=== PATIENT | female | born 1940 | race Caucasian/White ===

== ENCOUNTER 2018-02-08 02:04 | Inpatient (IN) | payer OTHER ==
[~2018-02-08] VITALS: Ht 149.9 cm; Wt 88.5 kg
[~2018-02-08 02:04] MED LIST: ADVAIR 100-501 EACH INH; ATORVASTATIN CA10 M1 PO; COZAAR100 M1 PO; GLIPIZIDE5 M2 PO; METFORMIN HCL500 M3 PO; PRESERVISION L1 EACH; VITAMIN B-121000 MC3 PO
--- NOTE | 2018-02-08 19:42 | Operative Report ---
Operative/Inv Procedure Report Surgery Date: 02/08/18 Name of Procedure: 1. Robotic low anterior resection with low colorectal anastomosis 2. Laparoscopic mobilization of splenic flexure 3. Diverting loop ileostomy 4. Rigid sigmoidoscopy for evaluation of anastomotic integrity Pre-Operative Diagnosis: Sigmoid polyp at 20 cm Post-Operative Diagnosis: 1. Rectal polyp mid rectum 2. Severe diverticular disease Estimated Blood Loss: 300 mL Surgeon/Quiller Operator: Christopher Moser Jr., DO Anesthesia: general endotracheal tube Monitors: Per routine Implants: None Urine Output: Adequate Drains: REINA in pelvis Specimens: #1 rectosigmoid #2 reresection rectum with lesion present stitch caballero distal margin Complications: None Condition: Good Operative Indication: This 77-year-old female who was found to have a polyp on colonoscopy not amenable to endoscopic removal. The lesion was biopsied and tattooed and the patient was referred for surgical resection Operative/Procedure Note Note: On the day before procedure the patient is a bowel prep at home, which included oral laxatives and oral antibiotics. In the morning prior to coming to the hospital she drank 12 ounces of apple juice per the ERAS protocol. In the holding area she received premedications including: Oral Tylenol, oral Neurontin , oral Entereg. She received subcutaneous heparin in the holding area. He was taken into the operating room she received IV antibiotics. She is placed in the supine position on the operating room table. She underwent induction of general anesthesia placement endotracheal tube and Hamilton catheter. She underwent her bilateral tap blocks. She was then converted to lithotomy position in [facility]. The abdomen was prepped and draped in usual fashion. We entered the abdominal cavity using a Veress needle technique. Veress needle was inserted in the midclavicular line subcostally on the left. The abdomen was insufflated to 15 mmHg. Next the robotic ports were placed. They were placed on a line drawn between the xiphoid process in the right lower quadrant. The # 12 and 3 ports were a millimeter ports. The #4 port was a 12 mm port. A new additional 12 mm right lower quadrant aerocele port was placed for the patient observation assistant. The first port was placed. #3 which was blindly placed and then the additional ports were all placed under direct visualization of the lap scope. Next laparoscopic exploration was performed. Patient had abundant adhesions of the omentum to the pelvis. I mobilized some of these adhesions upper scopic labor decided we would complete the lysis robotically. The patient was placed in steep Trendelenburg right side down and the robot was docked. Over the next hour lysis of adhesion was performed and the omentum was freed from the pelvis. The cause of the patient's obesity and body habitus was very difficult to get exposure in the pelvis. Even with maximum Trendelenburg the small bowel Back into the Pelvis. Because of this I decided to do a lateral to medial mobilization. The rectosigmoid colon was grasped and pulled medially and then I divided the white line of Toldt with electrocautery. I carefully entered the retroperitoneal avascular space. And continued to dissect till I found the ureter and can then continue to dissect medially until was in the posterior avascular space of the rectum I took this down posteriorly and laterally on the left. Next the colon was pulled anteriorly and he was able to mobilize I was able to incise perineum and an entered the posterior avascular space from the right side and then mobilize part of the lateral stalks. No tattoo was visible. Patient had a long segment of severe diverticular disease which appeared to have its of recurrent diverticulitis. I mobilized the entire left colon taking down the white line of Toldt all the way to the level of the splenic flexure. I repeatedly ran the left colon and sigmoid colon but could not find a tattoo. Intraoperatively the last report was reviewed and stated that the polyp was at 20 cm. Decided to hedge my bet and mobilize more of the rectum making sure to make my distal staple line comfortably on the rectum at about 12 cm from the anal verge. At this point the vascular pedicle was identified and then skeletonized. I did get some bleeding from sidebranches was mobilizing the pedicle which were ultimately controlled with the robotic vessel sealer. The vessels were then divided with the vessel sealer. I inspected the vascular pedicle which appeared hemostatic. Next I cleared the mesial rectum with the vessel sealer. The bowel was divided with a blue NEELAM stapler. The transected portion of bowel was grasped. The robot was undocked. A midline incision was made just below the umbilicus. This was a 5 cm incision. Wound protector was placed through this. In the transected end of the bowel easily was pulled through this wound protector. The bowel was very firm and palpated the entire length of the rectosigmoid but because of the diverticular disease could not be sure whether or not there was a lesion within the lumen. I chose my proximal site of transection which was at the junction of the sigmoid colon and descending colon. The mesentery was cleared here with electrocautery and larger bundles of mesentery were ligated with Vicryl suture. The bowel was sharply divided. And the specimen was removed from the field. A handsewn pursestring was performed with a 2-0 Prolene suture. A anvil from a 28 m EEA stapler was placed into the lumen of the bowel. The Turner was tied snugly around the PEG of the anvil. The bowel was reduced back into the abdominal cavity. At this point specimen was opened on the back table. The bowel had severe narrowing from diverticular disease but there was no polyp no mass and no tattoo present. Rigid sigmoidoscopy was performed at this point and a large polypoid lesion was still visible within the rectum. At this point the robot was re-docked. And I continued to mobilize more rectum. I never saw tattoo. Therefore I decided to take my mobilization as low as possible in order to not leave any residual polyp. The rectum was mobilized at the level of the levators using a combination of electrocautery and vessel sealer. Once I reached the levators I prepared to divide the specimen. The specimen was pulled in a cephalad direction. Then divided the bowel in an anterior posterior fashion with robotic green loaded NEELAM staplers. Multiple firings were required to get across. The specimen was then removed through the wound protector which had been converted to a gel port hand port. . The specimen was opened on the back table this time the polyp was clearly present there was tattoo ink at the base of the polyp but it did not anal the outer wall of the rectum . A stitch was used to nila the distal margin . At this point the colon would not reach to the bottom of the pelvis. The GelPort was extended slightly to come in and my hand to 8 cm. And a laparoscopic hand-assisted mobilization of the splenic flexure was carried out. Once the splenic flexure was completely mobilized the colon would reach the bottom of the pelvis. EEA sizers were passed transanally. In the EEA stapler was placed. Her was only about 4 cm of residual rectum. The spike was advanced through the rectal wall. 2 ends of the stapler overlapping scopic mated. The stapler was completely closed and allowed to settle for 30 seconds. The stapler was then fired, opened, and completely retrieved. 2 complete donuts were on the stapling device. We filled the pelvis with sterile water. An air leak test was performed. The anastomosis was very low in the pelvis and visible with the rigid sigmoidoscope. There was no air leak present. Because of the very low anastomosis and difficult pelvic dissection decided to decided that it would be prudent to do a proximal diversion. A REINA drain was flap was Replaced in the posterior pelvis behind the anastomosis and brought out through the right lower quadrant ventral millimeter port. This drain was secured to the skin with 2-0 silk. Once at this point I ran the small bowel through the GelPort incision. I found the terminal ileum and chose a proper site for a loop ileostomy. A umbilical tape was placed through a small intentionally created mesenteric defect. The number to 8 mm port was converted to an ostomy site. A jena of skin and soft tissue was excised down to the fascia. The fascia was divided in a cruciate fashion. The rectus muscle was identified. Rectus muscle was pulled was split in direction of the fibers. The posterior sheath was then divided. I then was able to pull the umbilical tape through this incision with a large Radha clamp. Next the left scopic ports were all removed and then they were all closed together 4-0 Monocryl. The epidermis was closed with skin glue. The extraction incision was closed with a running 0 PDS suture. The subcutaneous was copiously irrigated with sterile saline. And the skin was closed here with skin prerna. The umbilical tape was exchanged for a red rubber catheter. The field was covered with sterile towels. And the stoma was matured into a Cate loop ileostomy with interrupted 3-0 Vicryl sutures. The red rubber catheter was secured to the skin and then to itself with heavy nylon suture. The abdomen was cleansed and dried. A nylon dressing was placed over the lower midline incision and drain sponge was placed over the REINA drain. The patient was converted back to supine. Patient was did [facility] recovery area in good condition. At the end this operational needle sponges and measurements were accounted for. Findings: Polyp in mid rectum Discharge Disposition: PACU
--- NOTE | 2018-02-08 20:08 | Admission Core Measures ---
Acute Coronary Syndrome (CM) ACS Core Measures Acute Coronary Syndrome Diagnosis No Congestive Heart Failure (NEW) CHF Core Measures Congestive Heart Failure Diagnosis No Cerebrovascular Accident (NEW) CVA Core Measures CVA/TIA Diagnosis No Venous Thromboembolism VTE Core Allie (View Protocol) VTE Risk Factors Surgery No Mechanical VTE Prophylaxis d/t N/A MechProphylax Ordered No VTE Pharm Prophylaxis d/t NA PharmProphylax ordered Problem List As ranked by this Provider includes Assessment & Plan 1. Colon polyp HOME MEDS Home Med List Atorvastatin Calcium 10 MG TABLET 1 TAB PO DAILY CHOLESTEROL (Reported) Cyanocobalamin (Vitamin B-12) 1,000 MCG TABLET 1 TAB PO DAILY SUPPLEMENT ( Reported) Fluticasone-Salmeterol (Advair 100-50 Diskus) 100 MCG-50 MCG/DOSE BLST.W.DEV 1 PUF INH BID COPD (Reported) Glipizide 5 MG TABLET 1 TAB PO BID DM (Reported) Losartan (Cozaar) 100 MG TABLET 1 TAB PO DAILY HTN (Reported) Metformin HCl 500 MG TABLET 1 TAB PO DAILY DM (Reported)
[2018-02-08 21:11] VITALS: BP 156/78
--- NOTE | 2018-02-08 21:35 | PN- General Surgery ---
Subjective Subjective: POC feeling well, no pain, thirsty. was unaware of ostomy- discussed at length, pt upset "I don't want the bag". no n/v, no cp/sob. no oob yet, no po intake yet. +uo via ngo Objective Vital Signs and I&Os Vital Signs Date Time Temp Pulse Resp B/P B/P Pulse O2 O2 Flow FiO2 Mean Ox Delivery Rate 02/08 2111 97.5 92 18 156/78 95 Nasal Cannula 02/08 2045 Nasal 1.0L Cannula Intake & Output 02/08 0800 02/08 0000 02/07 1600 02/07 0800 02/07 0000 Intake Total Output Total Balance Patient 183 lb Weight Physical Exam: gen- nad card-s1s2 rrr pulm- ctab abd- obese, soft, nt, dressings cdi, stoma pink/edematous with miguel in place, liquid brown stool and gas in bag, +bs. ext- calves soft nt, alps on bl ngo- clr yellow urine Assessment/Plan Assessment/Plan A- POD0 sp robo LAR with DLI, stable with functioning viable ostomy, though anxious about life with ostomy. P- oob, ambulate ostomy teaching I&Os eras- IVF @50, clears, atc tylenol, atc neurontin prn narcs entereg prn zofran jada ngo in am home meds johnnie, fs will dw attending Core Measures Venous Thromboembolism VTE Risk Factors Surgery No Mechanical VTE Prophylaxis d/t N/A MechProphylax Ordered No VTE Pharm Prophylaxis d/t NA PharmProphylax ordered
[2018-02-08 23:16] VITALS: BP 136/70
[2018-02-09 01:03] VITALS: BP 124/76
[2018-02-09 03:00] VITALS: BP 126/80
[2018-02-09 06:38] VITALS: BP 132/64
--- NOTE | 2018-02-09 07:41 | PN- General Surgery ---
Surgical Brief Attending Note Brief Attending Note: Patient awake and alert in no acute distress Vital signs stable overnight Excellent urine output REINA fairly high volume and still very sanguinous Stoma healthy and starting to produce bilious stool Plan: To not remove Hamilton catheter-patient with low pelvic dissection may have urinary retention, also important fries and it was at this point Continue to monitor drain output Hold anticoagulation/no subcutaneous heparin-patient must wear vena dynes when in bed Follow-up a.m. labs Do not advanced diet stay on clears No NSAIDs
[2018-02-09 08:46] LABS: ABSOLUTE BASOPHIL COUNT 0 /CUMM (0.0-0.2); ABSOLUTE EOSINOPHIL COUNT 0 /CUMM (0.0-0.7); ABSOLUTE GRANULOCYTE CT 8.2 /CUMM (1.4-6.5); ABSOLUTE LYMPH COUNT 0.3 /CUMM (1.2-3.4); ABSOLUTE MONOCYTE COUNT 0.6 /CUMM (0.10-0.60); BASOPHIL % 0.1 % (0.0-2.0); EOSINOPHIL % 0 % (0-5); GRANULOCYTE % 89.2 % (42.2-75.2); MEAN CORPUSCULAR HGB CONC 34.5 G/DL (33.0-37.0); MEAN PLATELET VOLUME 8.1 FL (7.4-10.4); PLATELET COUNT 193 /CUMM (130-400); RBC DISTRIBUTION WIDTH 13.5 % (11.5-14.5); RED BLOOD CELL CT 3.46 /CUMM (4.20-5.40); WHITE BLOOD CELL COUNT 9.2 /CUMM (4.8-10.8)
[2018-02-09 14:34] VITALS: BP 134/56
[2018-02-09 18:02] LABS: ABSOLUTE BASOPHIL COUNT 0 /CUMM (0.0-0.2); ABSOLUTE EOSINOPHIL COUNT 0 /CUMM (0.0-0.7); ABSOLUTE GRANULOCYTE CT 8.9 /CUMM (1.4-6.5); ABSOLUTE LYMPH COUNT 0.7 /CUMM (1.2-3.4); ABSOLUTE MONOCYTE COUNT 0.8 /CUMM (0.10-0.60); BASOPHIL % 0.1 % (0.0-2.0); EOSINOPHIL % 0.1 % (0-5); HEMATOCRIT 30.2 % (37-47); MEAN CORPUSCULAR HGB 29.6 PG (27.0-31.0); MEAN CORPUSCULAR VOLUME 87.3 FL (81.0-99.0); MEAN PLATELET VOLUME 7.3 FL (7.4-10.4); PLATELET COUNT 225 /CUMM (130-400); RBC DISTRIBUTION WIDTH 13.6 % (11.5-14.5); RED BLOOD CELL CT 3.46 /CUMM (4.20-5.40); WHITE BLOOD CELL COUNT 10.5 /CUMM (4.8-10.8)
[2018-02-09 18:19] LABS: GRANULOCYTE % 85.2 % (42.2-75.2)
[2018-02-09 22:58] VITALS: BP 130/54
[2018-02-10 06:20] VITALS: BP 128/60
--- NOTE | 2018-02-10 08:51 | PN- General Surgery ---
See Addendum Subjective Subjective: Patient seen and evaluated, no acute events overnight. Pt reports only minimal gracie-incisional pain. Per patient she has only been oob once with nurses, but states she is ready to ambulate more. Voices some concern about having her ostomy. Otherwise, patient doing well. Objective Vital Signs and I&Os Vital Signs Date Time Temp Pulse Resp B/P B/P Pulse O2 O2 Flow FiO2 Mean Ox Delivery Rate 02/10 0802 75 122/60 02/10 0620 99.2 85 20 128/60 96 Room Air 02/09 2258 99.1 79 20 130/54 95 Room Air 02/09 1434 98.9 84 20 134/56 97 Intake & Output 02/10 1600 02/10 0800 02/10 0000 02/09 1600 02/09 0000 Intake Total 323 188 8188 700 700 Output Total 8394 777 5365 920 170 Balance -188 -50 -435 -220 530 Intake, IV 400 400 500 400 200 Intake, Oral 480 400 720 300 500 Output, 18 50 80 50 70 Drainage Output, Stool 150 625 20 100 Output, Urine 900 800 950 850 Patient 195 lb 195 lb Weight Weight Bed scale Bed scale Measurement Method Physical Exam: gen- elderly female laying supine in bed, NAD card-s1s2 rrr pulm- ctab abd- obese, soft, nt, dressings cdi, stoma pink/edematous with miguel in place, liquid brown stool and gas in bag, +bs. ext- calves soft nt, alps on bl ngo- ngo in place, clr yellow urine Current Medications: Current Medications Sig/Cirilo Start time Last Medication Dose Route Stop Time Status Admin Acetaminophen 1,000 MG Q8 02/08 2200 AC 02/10 PO 02/11 1401 0638 Albuterol Sulfate 2 PUF Q4-PRN PRN 02/08 2230 AC INH Alvimopan 12 MG BID 02/08 2200 DC 02/09 PO 02/15 0901 0847 Budesonide/ 2 PUF BID 02/08 2100 AC 02/10 Formoterol Fumarate INH 0804 Dextrose/Lactated 1,000 ML Q20H 02/08 2100 AC 02/09 Ringer's IV 2123 Gabapentin 200 MG TID 02/08 2100 AC 02/10 PO 0802 Insulin Aspart 0 TIDAC 02/09 0800 AC 02/10 SC 0802 Insulin Aspart 0 AT BEDTIME 02/08 2100 AC SC Losartan Potassium 100 MG DAILY 02/09 09 DC PO Losartan Potassium 100 MG DAILY 02/09 0900 AC 02/10 PO 0802 Metronidazole 500 MG IQ8 02/09 0000 DC 02/09 N/A 1 UNIT IV 02/09 0859 09 Morphine Sulfate 2 MG Q2P PRN 02/08 2100 AC IV Ondansetron HCl 4 MG Q6P PRN 02/08 2100 AC IV Oxycodone HCl 10 MG Q6P PRN 02/08 2015 AC PO Oxycodone HCl 5 MG Q6P PRN 02/09 2000 AC PO Results Last 48 Hours of Labs: Laboratory Tests 02/10 02/09 02/09 0738 1745 1125 Chemistry Sodium (137 - 145 mmol/L) 137 Potassium (3.5 - 5.1 mmol/L) 4.0 Chloride (98 - 107 mmol/L) 101 Carbon Dioxide (22 - 30 mmol/L) 24 Anion Gap (5 - 16) 11 BUN (7 - 17 mg/dL) 19 H Creatinine (0.5 - 1.0 mg/dL) 1.0 Estimated GFR (>60 ml/min) 53 L BUN/Creatinine Ratio (7 - 25 %) 19.0 Hematology CBC w Diff Pending NO MAN DIFF REQ WBC (4.8 - 10.8 /CUMM) Pending 10.5 RBC (4.20 - 5.40 /CUMM) Pending 3.46 L Hgb (12.0 - 16.0 G/DL) Pending 10.2 L Hct (37 - 47 %) Pending 30.2 L MCV (81.0 - 99.0 FL) Pending 87.3 MCH (27.0 - 31.0 PG) Pending 29.6 MCHC (33.0 - 37.0 G/DL) Pending 34.0 RDW (11.5 - 14.5 %) Pending 13.6 Plt Count (130 - 400 /CUMM) Pending 225 MPV (7.4 - 10.4 FL) Pending 7.3 L Gran % (42.2 - 75.2 %) 85.2 H Lymphocytes % (20.5 - 51.1 %) 6.9 L Monocytes % (1.7 - 9.3 %) 7.7 Eosinophils % (0 - 5 %) 0.1 Basophils % (0.0 - 2.0 %) 0.1 Absolute Granulocytes (1.4 - 6.5 /CUMM) 8.9 H Absolute Lymphocytes (1.2 - 3.4 /CUMM) 0.7 L Absolute Monocytes (0.10 - 0.60 /CUMM) 0.8 H Absolute Eosinophils (0.0 - 0.7 /CUMM) 0 Absolute Basophils (0.0 - 0.2 /CUMM) 0 02/09 0755 Hematology CBC w Diff MAN DIFF ORDERED WBC (4.8 - 10.8 /CUMM) 9.2 RBC (4.20 - 5.40 /CUMM) 3.46 L Hgb (12.0 - 16.0 G/DL) 10.4 L Hct (37 - 47 %) 30.0 L MCV (81.0 - 99.0 FL) 87.0 MCH (27.0 - 31.0 PG) 30.0 MCHC (33.0 - 37.0 G/DL) 34.5 RDW (11.5 - 14.5 %) 13.5 Plt Count (130 - 400 /CUMM) 193 MPV (7.4 - 10.4 FL) 8.1 Gran % (42.2 - 75.2 %) 89.2 H Lymphocytes % (20.5 - 51.1 %) 3.8 L Monocytes % (1.7 - 9.3 %) 6.9 Eosinophils % (0 - 5 %) 0 Basophils % (0.0 - 2.0 %) 0.1 Absolute Granulocytes (1.4 - 6.5 /CUMM) 8.2 H Segmented Neutrophils (42.2 - 75.2 %) 80 H Band Neutrophils (0.0 - 5.0 %) 9 H Absolute Lymphocytes (1.2 - 3.4 /CUMM) 0.3 L Lymphocytes (20.5 - 51.1 %) 4 L Monocytes (1.7 - 9.3 %) 7 Absolute Monocytes (0.10 - 0.60 /CUMM) 0.6 Absolute Eosinophils (0.0 - 0.7 /CUMM) 0 Absolute Basophils (0.0 - 0.2 /CUMM) 0 Platelet Estimate (ADEQUATE) VERIFIED BY SMEAR Normocytic RBCs VERIFIED Normochromic RBCs VERIFIED Assessment/Plan Assessment/Plan This is a 77 y/o M w/ PMHx COPD, HTN, DM, Anemia, mac degen who is now POD#2 LAR with DLI and placement of SAUL *Will discuss patient and plan with Dr. Moser GI: #POD2 Robot LAR with DLI - clears -> will advance to fulls - Zofran PRN - monitor Saul output -> only 20mL overnight CV: - Losartan 100 mg PO qday w/ hold parameters - Vitals stable - Monitor vitals per protocol Pulm: - Continue inhalers - Continuie agressive pulmonary toilet Neuro: - Continue current pain regimen; - not in pain --- Oxycodone 5 mg/10 mg PO PRN moderate/severe pain --- Tylenol 1000 q8hr ATC --- Morphine 2 mg IV PRN breakthrough pain --- Gabapentin 200 mg PO TID Renal/: - D/C ngo - d5-LR @ 50mL/ hr -> can likely be dc if tolerates fulls - Good UOP ID: - Not on abx - Monitor for fevers Heme: - H&H stable - F/U morning CBC - holding sc heparin per Dr. Moser not yesterday. will need to readress Endo: #Hx of DM - Continue sliding scale, CBGs, hypoglycemia protocol Ortho: - Encourage ambulation Dispo: - Continue as inpatient. Discharge is pending diet advancment and return on bowel function Core Measures Venous Thromboembolism VTE Risk Factors Surgery No Mechanical VTE Prophylaxis d/t N/A MechProphylax Ordered No VTE Pharm Prophylaxis d/t NA PharmProphylax ordered
[2018-02-10 09:22] LABS: ABSOLUTE BASOPHIL COUNT 0 /CUMM (0.0-0.2); ABSOLUTE EOSINOPHIL COUNT 0.1 /CUMM (0.0-0.7); ABSOLUTE GRANULOCYTE CT 6.1 /CUMM (1.4-6.5); ABSOLUTE LYMPH COUNT 0.9 /CUMM (1.2-3.4); ABSOLUTE MONOCYTE COUNT 0.5 /CUMM (0.10-0.60); BASOPHIL % 0.4 % (0.0-2.0); EOSINOPHIL % 0.9 % (0-5); GRANULOCYTE % 80.4 % (42.2-75.2); HEMATOCRIT 28.7 % (37-47); MEAN CORPUSCULAR HGB 29.8 PG (27.0-31.0); MEAN CORPUSCULAR HGB CONC 34.2 G/DL (33.0-37.0); MEAN CORPUSCULAR VOLUME 87.4 FL (81.0-99.0); MEAN PLATELET VOLUME 7.8 FL (7.4-10.4); PLATELET COUNT 177 /CUMM (130-400); RBC DISTRIBUTION WIDTH 13.7 % (11.5-14.5); RED BLOOD CELL CT 3.28 /CUMM (4.20-5.40); WHITE BLOOD CELL COUNT 7.6 /CUMM (4.8-10.8)
[2018-02-10 14:36] VITALS: BP 124/68
--- NOTE | 2018-02-10 20:08 | Event Note ---
Event Note Event Note: S: RN activated a rapid response after the patient had a fall while ambulating in the bathroom. Patient fell backwards and hit her occiput without LOC. Patient denies dizziness, CP, SOB, palpitations prior to fall. Patient asymptomatic post fall. Vitals: 138/78, HR: 89, 96% on RA, FSG 209. Physical exam: AO3, no acute distress, cranial nerves 2-12 intact, +S1/S2, clear lungs B: 77 y/o M, patient of Dr. Moser (surgical service) w/ PMHx COPD, HTN, DM, Anemia, macular degeneration, POD#2 Robotic low anterior resection with low colorectal anastomosis, Laparoscopic mobilization of splenic flexure, Diverting loop ileostomy, Rigid sigmoidoscopy for evaluation of anastomotic integrity A/R: Patient had a mechanical fall and remains stable. Stat CT head without contrast: no acute pathology Check Orthostats: WNL Attending and surgical PA made aware
[2018-02-10 20:11] VITALS: BP 138/78
[2018-02-10 21:00] VITALS: BP 132/62
--- NOTE | 2018-02-10 21:01 | CT SCAN REPORT ---
EXAMINATION: CT HEAD WITHOUT CONTRAST CLINICAL INFORMATION: Fall injury. COMPARISON: None TECHNIQUE: Contiguous axial imaging was performed from the skull base to vertex without intravenous administration of contrast. DLP: 693.26 mGy-cm FINDINGS: No evidence of acute intracranial trauma. There is no evidence of acute intracranial hemorrhage or territorial infarction. No abnormal mass effect or midline shift is seen. Tucker to white matter differentiation is well preserved. No extra-axial fluid collections are identified. The ventricles are normal in size. There is no abnormal attenuation within the brain parenchyma. The osseous structures and soft tissues are normal. The mastoid air cells and visualized portions of the paranasal sinuses are well aerated. IMPRESSION: No acute intracranial pathology.
[2018-02-10 22:11] VITALS: BP 132/62
[2018-02-11 06:32] VITALS: BP 126/60
--- NOTE | 2018-02-11 07:44 | PN- General Surgery ---
See Addendum Subjective Subjective: Rapid response event last night s/p fall. CT head negative. Patient currently without complaints. She reports tolerating diet. No nausea/vomiting. Denies dizziness. No shortness of breath. No chest pains. She reports she does have stairs to accomplish at home, which she hasn't yet done post-operatively. She anticipates ostomy teaching today, and PT eval to assess ability to do stairs. She does express interest in VNA services for ostomy care. Objective Vital Signs and I&Os Vital Signs Date Time Temp Pulse Resp B/P B/P Pulse O2 O2 Flow FiO2 Mean Ox Delivery Rate 02/11 0632 98.5 86 18 126/60 97 Room Air 02/10 221 97.9 94 18 132/62 96 Room Air 02/10 2100 97.9 94 20 132/62 02/10 2011 98.4 89 22 138/78 96 Room Air 02/10 1436 98.8 86 20 124/68 99 02/10 0802 75 122/60 Intake & Output 02/11 0800 02/11 0000 02/10 1600 02/10 0800 02/10 0000 02/09 1600 Intake Total 480 1070 020 466 2819 Output Total 620 1368 7425 020 9229 Balance -140 -298 -188 -50 -435 Intake, IV 350 400 400 500 Intake, Oral 480 720 480 400 720 Number 0 Bowel Movements Output, 20 18 18 50 80 Drainage Output, Stool 400 1000 150 625 Output, Urine 200 350 900 800 950 Physical Exam: General - alert & oriented x 3. comfortable. no acute distress. Lungs - clear bilaterally. no w/r/r. Cardiac - s1s2. reg. Abdomen - soft. minimal gracie-incisional tenderness. diverting stoma with stool in bag. red rubber catheter in place. Extremities - warm bilaterally. no c/c/e. calves soft and nontender b/l. athrombics active. Current Medications: Current Medications Sig/Cirilo Start time Last Medication Dose Route Stop Time Status Admin Acetaminophen 1,000 MG Q8 02/08 2200 AC 02/11 PO 02/11 1401 0600 Albuterol Sulfate 2 PUF Q4-PRN PRN 02/08 2230 AC 02/10 INH 0957 Budesonide/ 2 PUF BID 02/08 2100 AC 02/10 Formoterol Fumarate INH 2051 Dextrose/Lactated 1,000 ML Q20H 02/08 2100 DC 02/09 Ringer's IV 2122 Gabapentin 200 MG TID 02/08 2100 AC 02/10 PO 2049 Insulin Aspart 0 TIDAC 02/09 08 AC 02/10 SC 08 Insulin Aspart 0 AT BEDTIME 02/08 2100 AC SC Loperamide HCl 2 MG TID 02/10 1400 AC 02/10 PO 214 Losartan Potassium 100 MG DAILY 02/09 09 AC 02/10 PO 801 Morphine Sulfate 2 MG Q2P PRN 02/08 2100 AC IV Ondansetron HCl 4 MG Q6P PRN 02/08 2100 AC IV Oxycodone HCl 10 MG Q6P PRN 02/08 2015 AC PO Oxycodone HCl 5 MG Q6P PRN 02/09 2000 AC PO Results Last 48 Hours of Labs: Laboratory Tests 02/10 02/09 0738 1740 Hematology CBC w Diff NO MAN DIFF REQ NO MAN DIFF REQ WBC (4.8 - 10.8 /CUMM) 7.6 10.5 RBC (4.20 - 5.40 /CUMM) 3.28 L 3.46 L Hgb (12.0 - 16.0 G/DL) 9.8 L 10.2 L Hct (37 - 47 %) 28.7 L 30.2 L MCV (81.0 - 99.0 FL) 87.4 87.3 MCH (27.0 - 31.0 PG) 29.8 29.6 MCHC (33.0 - 37.0 G/DL) 34.2 34.0 RDW (11.5 - 14.5 %) 13.7 13.6 Plt Count (130 - 400 /CUMM) 177 225 MPV (7.4 - 10.4 FL) 7.8 7.3 L Gran % (42.2 - 75.2 %) 80.4 H 85.2 H Lymphocytes % (20.5 - 51.1 %) 11.5 L 6.9 L Monocytes % (1.7 - 9.3 %) 6.8 7.7 Eosinophils % (0 - 5 %) 0.9 0.1 Basophils % (0.0 - 2.0 %) 0.4 0.1 Absolute Granulocytes (1.4 - 6.5 /CUMM) 6.1 8.9 H Absolute Lymphocytes (1.2 - 3.4 /CUMM) 0.9 L 0.7 L Absolute Monocytes (0.10 - 0.60 /CUMM) 0.5 0.8 H Absolute Eosinophils (0.0 - 0.7 /CUMM) 0.1 0 Absolute Basophils (0.0 - 0.2 /CUMM) 0 0 02/09 02/09 1125 0755 Chemistry Sodium (137 - 145 mmol/L) 137 Potassium (3.5 - 5.1 mmol/L) 4.0 Chloride (98 - 107 mmol/L) 101 Carbon Dioxide (22 - 30 mmol/L) 24 Anion Gap (5 - 16) 11 BUN (7 - 17 mg/dL) 19 H Creatinine (0.5 - 1.0 mg/dL) 1.0 Estimated GFR (>60 ml/min) 53 L BUN/Creatinine Ratio (7 - 25 %) 19.0 Hematology CBC w Diff MAN DIFF ORDERED WBC (4.8 - 10.8 /CUMM) 9.2 RBC (4.20 - 5.40 /CUMM) 3.46 L Hgb (12.0 - 16.0 G/DL) 10.4 L Hct (37 - 47 %) 30.0 L MCV (81.0 - 99.0 FL) 87.0 MCH (27.0 - 31.0 PG) 30.0 MCHC (33.0 - 37.0 G/DL) 34.5 RDW (11.5 - 14.5 %) 13.5 Plt Count (130 - 400 /CUMM) 193 MPV (7.4 - 10.4 FL) 8.1 Gran % (42.2 - 75.2 %) 89.2 H Lymphocytes % (20.5 - 51.1 %) 3.8 L Monocytes % (1.7 - 9.3 %) 6.9 Eosinophils % (0 - 5 %) 0 Basophils % (0.0 - 2.0 %) 0.1 Absolute Granulocytes (1.4 - 6.5 /CUMM) 8.2 H Segmented Neutrophils (42.2 - 75.2 %) 80 H Band Neutrophils (0.0 - 5.0 %) 9 H Absolute Lymphocytes (1.2 - 3.4 /CUMM) 0.3 L Lymphocytes (20.5 - 51.1 %) 4 L Monocytes (1.7 - 9.3 %) 7 Absolute Monocytes (0.10 - 0.60 /CUMM) 0.6 Absolute Eosinophils (0.0 - 0.7 /CUMM) 0 Absolute Basophils (0.0 - 0.2 /CUMM) 0 Platelet Estimate (ADEQUATE) VERIFIED BY SMEAR Normocytic RBCs VERIFIED Normochromic RBCs VERIFIED Assessment/Plan Assessment/Plan This 77 year old female with hx copd, htn, dm, anemia, macular degeneration, is now POD#3 s/p robotic low anterior resection with low colorectal anastomosis, laparoscopic mobilization of splenic flexure, and diverting loop ileostomy, for rectal polyp and severe diverticular disease, REINA drain left in place post-operatively, s/p rapid response overnight secondary to fall - CT head negative, currently without complaints tolerating low residue diet ileostomy output appears to be slowing down with imodium TID hep sc intentionally held on 02/09 due to concerns of gracie-op bleeding f/u labs this morning PT eval today to assess safety and ability to do stairs at home ostomy teaching ?d/c REINA drain case management to assist with vna services d/c planning today with vna services if cleared by PT will d/w Core Measures Venous Thromboembolism VTE Risk Factors Surgery No Mechanical VTE Prophylaxis d/t N/A MechProphylax Ordered No VTE Pharm Prophylaxis d/t NA PharmProphylax ordered
[2018-02-11 08:09] VITALS: BP 126/60
[2018-02-11 08:44] LABS: ABSOLUTE BASOPHIL COUNT 0 /CUMM (0.0-0.2); ABSOLUTE EOSINOPHIL COUNT 0.2 /CUMM (0.0-0.7); ABSOLUTE GRANULOCYTE CT 4.8 /CUMM (1.4-6.5); ABSOLUTE LYMPH COUNT 0.6 /CUMM (1.2-3.4); ABSOLUTE MONOCYTE COUNT 0.3 /CUMM (0.10-0.60); BASOPHIL % 0.5 % (0.0-2.0); GRANULOCYTE % 80.6 % (42.2-75.2); HEMATOCRIT 30.5 % (37-47); MEAN CORPUSCULAR HGB 29.6 PG (27.0-31.0); MEAN CORPUSCULAR HGB CONC 33.6 G/DL (33.0-37.0); MEAN CORPUSCULAR VOLUME 88.1 FL (81.0-99.0); MEAN PLATELET VOLUME 7.5 FL (7.4-10.4); PLATELET COUNT 195 /CUMM (130-400); RBC DISTRIBUTION WIDTH 13.7 % (11.5-14.5); RED BLOOD CELL CT 3.46 /CUMM (4.20-5.40); WHITE BLOOD CELL COUNT 5.9 /CUMM (4.8-10.8)
[2018-02-11] MEDS ORDERED: LOPERAMIDE2 M2 PO (08:47)
[2018-02-11] MEDS ORDERED: PERCOCET 5-3251 EACH PO ×2 (08:47→08:54)
--- NOTE | 2018-02-11 09:05 | Patient Discharge Instructions ---
Discharge Instructions General Discharge Information You were seen/treated for: 1. Rectal polyp mid rectum 2. Severe diverticular disease You had these procedures: Surgery Date: 02/08/18 Name of Procedure: 1. Robotic low anterior resection with low colorectal anastomosis 2. Laparoscopic mobilization of splenic flexure 3. Diverting loop ileostomy 4. Rigid sigmoidoscopy for evaluation of anastomotic integrity Watch for these problems: fever, chills, flu-like illness drain -continue to follow drain output ileostomy - continue to follow-output Call Surgeon to remove: Pa Other wound care: keep clean and dry keep REINA drain to suction VNA for ileostomy care Diet Continue normal diet: Yes Recommended Diet: Diabetic, Low Residue Activity Full Activity/No Limits: No Activity Self Limited: Yes Pounds, do NOT lift more than: 10 Acute Coronary Syndrome Inclusion Criteria At DC or during hospital stay patient has or had the following: ACS DIAGNOSIS No Discharge Core Measures Meds if any: Prescribed or Continued at Discharge Meds if any: NOT Prescribed or Continued at Discharge Congestive Heart Failure Inclusion Criteria At DC or during hospital stay patient has or had the following: CHF DIAGNOSIS No Discharge Core Measures Meds if any: Prescribed or Continued at Discharge Meds if any: NOT Prescribed or Continued at Discharge Cerebrovascular accident Inclusion Criteria At DC or during hospital stay patient has or had the following: CVA/TIA Diagnosis No Discharge Core Measures Meds if any: Prescribed or Continued at Discharge Meds if any: NOT Prescribed or Continued at Discharge Venous thromboembolism Inclusion Criteria VTE Diagnosis No VTE Type NONE VTE Confirmed by (Test) NONE Discharge Core Measures - Per Current guidelines, there needs to be overlap - treatment for the first 5 days of Warfarin therapy. - If discharged on Warfarin prior to 5 days of - overlap therapy, the patient will need to be - assessed for post discharge needs including - *Post discharge parental anticoagulation - *Warfarin and/or parental anticoagulation education - *Follow up date to check INR post discharge At least 5 days overlap therapy as Inpatient No Meds if any: Prescribed or Continued at Discharge Note: Overlap Therapy is Warfarin and Anticoagulant Meds if any: NOT Prescribed or Continued at Discharge
--- NOTE | 2018-02-11 09:22 | Surgical Discharge Summary ---
Visit Information Visit Dates Admission Date: 02/08/18 Discharge Date: 02/11/2018 History of Present Illness Chief Complaint: 77 y/o female with rectal polyp underwent a robotic LAR. Medical History Blood Transfusion Hx: No Neurological: NONE EENT: NONE Cardiovascular: NONE Respiratory: COPD Gastrointestinal: NONE Hepatic: cholecystitis Renal: NONE Musculoskeletal: NONE Psychiatric: NONE Endocrine: diabetes Blood Disorders: NONE Cancer(s): NONE [employer] SPECIALIST/Reproductive: NONE History of MRSA: No History of VRE: No History of CDIFF: No Isolation History: Standard Surgical History Pertinent Surgical History: breast biopsy, cholecystectomy, hip replacement Psychosocial History Where Do You Live? Home What is Your Primary Language? Indonesian Review of Systems: SEE H+P Hospital Course Course Attending Physician: Christopher Moser Jr., DO Primary Care Physician: Antoni SAINI,[facility] Course: 77 y/o female underwent elective robotic LAR and deverting loop ileostomy for a rectal polyp and severe dicerticular disease on 02/08/[address] Moser. She had an uneventful postoperative course without complication. She is cleared medically and has been seen by PT for discharge. She is discharged TODAY, REINA drain was removed and ileostomy and will need home services with VNA for wound and ostomy care. We followed KEIRA up and added imodium to her home meds. Complications: none Allergies: Coded Allergies: cyclobenzaprine (From FLEXERIL) (INCREASED PAIN 02/07/18) Disposition Summary Disposition Principal Diagnosis: sigmoid polyp rectal polyp diverticular disease Additional Diagnosis: same as above Discharge Disposition: home health services Discharge Instructions General Discharge Information Code Status: Full Code Patient's Diet: low residual diet diabetic diet Patient's Activity: OOB daily, no strenuous activites no heavy lifting greater than 10 lbs Follow-Up Instructions/Appts: call office for follow-up appointment in 1 week Medications at Discharge Discharge Medications: Continue taking these medications: Fluticasone-Salmeterol (Advair 100-50 Diskus) 100 MCG-50 MCG/DOSE BLST.W.DEV 1 Puff Inhale through mouth TWICE DAILY Cyanocobalamin (Vitamin B-12) 1,000 MCG TABLET 1 Tablet ORAL DAILY Glipizide (Glipizide) 5 MG TABLET 1 Tablet ORAL TWICE DAILY Metformin HCl (Metformin HCl) 500 MG TABLET 1 Tablet ORAL DAILY Atorvastatin Calcium (Atorvastatin Calcium) 10 MG TABLET 1 Tablet ORAL DAILY Losartan (Cozaar) 100 MG TABLET 1 Tablet ORAL DAILY Vit C/Curtis AC/Lut/Copper/Znox (Preservision Lutein Softgel) 226-200-5 CAPSULE 2 Tablet Start taking the following new medications: Oxycodone HCl/Acetaminophen (Percocet 5-325 MG Tablet) 5 MG-325 MG TABLET 1-2 Tablet ORAL EVERY 4-6 HOURS as needed for prn pain Qty = 30 No Refills Instructions: tylenol alternatively Loperamide HCl (Loperamide) 2 MG CAPSULE 2 Milligram ORAL THREE TIMES DAILY as needed for diarrhea from iliostomy Qty = 60 No Refills Magnesium Oxide (Magnesium) 400 MG CAPSULE 1 Capsule ORAL TWICE DAILY Qty = 10 No Refills Copies To: Antoni SAINI,Nicolette Attending MD Review Statement Attending Statement Attending MD Statement: discussed w/nursing Attending MD Statement: discussed w/nursing
[2018-02-11] MEDS ORDERED: MAGNESIUM400 M1 PO (10:42)
== END 2018-02-11 14:30 | disposition home health service (06) | DRG 331 ==
LOC: 2NA 02:04 → SDA 02:04 → ENRESERV 18:23 → ENTRNSPT 20:23 → 2NA 20:45 → EDTRNSPTSTS 20:49 → EDTRNSPT 20:49 → CMPTRNSPT 20:53 → ENPENDDIS 02-11 10:55 → ENTRNSPT 02-11 14:20 → 2NA 02-11 14:30 → EDTRNSPT 02-11 14:33 → EDTRNSPTSTS 02-11 14:33 → CMPTRNSPT 02-11 14:38
PROVIDERS: Physician Assistant; Physician Assistant Surgical
PROC: 0DBP4ZZ Excision of Rectum, Percutaneous Endoscopic Approach (ICD-10-PCS; principal; 2018-02-08)
PROC: 0DNU4ZZ Release Omentum, Percutaneous Endoscopic Approach (ICD-10-PCS; principal; 2018-02-08)
PROC: 0DTN0ZZ Resection of Sigmoid Colon, Open Approach (ICD-10-PCS; principal; 2018-02-08)
PROC: 8E0W4CZ Robotic Assisted Procedure of Trunk Region, Percutaneous Endoscopic Approach (ICD-10-PCS; principal; 2018-02-08)
PROC: 0DJD8ZZ Inspection of Lower Intestinal Tract, Via Natural or Artificial Opening Endoscopic (ICD-10-PCS; principal; 2018-02-08)
PROC: 0D1B4Z4 Bypass Ileum to Cutaneous, Percutaneous Endoscopic Approach (ICD-10-PCS; principal; 2018-02-08)
PROC: 3E0T3BZ Introduction of Anesthetic Agent into Peripheral Nerves and Plexi, Percutaneous Approach (ICD-10-PCS; 2018-02-08)
DX: D12.8 Benign neoplasm of rectum (principal); J44.9 Chronic obstructive pulmonary disease, unspecified; E11.9 Type 2 diabetes mellitus without complications; K57.30 Diverticulosis of large intestine without perforation or abscess without bleeding; E66.9 Obesity, unspecified; Z68.39 Body mass index [BMI] 39.0-39.9, adult; I10 Essential (primary) hypertension; H35.30 Unspecified macular degeneration; Z88.8 Allergy status to other drugs, medicaments and biological substances
CPT/HCPCS: 2NASP; 36415; 36592; 82436; 87086; 88307; 88309; 94799; 97116-GO; 97161-GP; C9290; C9399; J0131; J0690; J1644; J2405; J3490

== ENCOUNTER 2018-02-23 11:52 | Inpatient (IN) | payer OTHER ==
[~2018-02-23] VITALS: Ht 147.3 cm; Wt 83.3 kg
[~2018-02-23 11:52] MED LIST changes: +LOPERAMIDE2 M2 PO; +MAGNESIUM400 M1 PO; +PERCOCET 5-3251 EACH PO
[2018-02-23 13:34] LABS: ABSOLUTE BASOPHIL COUNT 0 /CUMM (0.0-0.2); ABSOLUTE EOSINOPHIL COUNT 0.1 /CUMM (0.0-0.7); ABSOLUTE GRANULOCYTE CT 10.1 /CUMM (1.4-6.5); ABSOLUTE LYMPH COUNT 0.4 /CUMM (1.2-3.4); ABSOLUTE MONOCYTE COUNT 0.6 /CUMM (0.10-0.60); BASOPHIL % 0.4 % (0.0-2.0); EOSINOPHIL % 0.6 % (0-5); HEMATOCRIT 34.8 % (37-47); MEAN CORPUSCULAR HGB 28.8 PG (27.0-31.0); MEAN CORPUSCULAR HGB CONC 32.9 G/DL (33.0-37.0); MEAN CORPUSCULAR VOLUME 87.4 FL (81.0-99.0); MEAN PLATELET VOLUME 6.8 FL (7.4-10.4); RBC DISTRIBUTION WIDTH 13.8 % (11.5-14.5); RED BLOOD CELL CT 3.98 /CUMM (4.20-5.40); WHITE BLOOD CELL COUNT 11.2 /CUMM (4.8-10.8)
[2018-02-23 14:02] LABS: GRANULOCYTE % 90.3 % (42.2-75.2); PLATELET COUNT 631 /CUMM (130-400)
--- NOTE | 2018-02-23 14:07 | ED GENERAL ADULT ---
History of Present Illness General Chief Complaint: General Adult Stated Complaint: DEHYRDRATED PER DAUGHTER Source: patient, family Exam Limitations: no limitations Vital Signs & Intake/Output Vital Signs & Intake/Output Vital Signs Date Time Temp Pulse Resp B/P B/P Pulse O2 O2 Flow FiO2 Mean Ox Delivery Rate 02/23 1504 98 Room Air 02/23 1200 98.1 90 18 119/61 99 Room Air Allergies Coded Allergies: cyclobenzaprine (From FLEXERIL) (INCREASED PAIN 02/07/18) Reconcile Medications Atorvastatin Calcium 10 MG TABLET 1 TAB PO DAILY CHOLESTEROL (Reported) Cyanocobalamin (Vitamin B-12) 1,000 MCG TABLET 1 TAB PO DAILY SUPPLEMENT ( Reported) Fluticasone-Salmeterol (Advair 100-50 Diskus) 100 MCG-50 MCG/DOSE BLST.W.DEV 1 PUF INH BID COPD (Reported) Glipizide 5 MG TABLET 1 TAB PO BID DM (Reported) Loperamide HCl (Loperamide) 2 MG CAPSULE 2 MG PO TID PRN diarrhea from iliostomy Losartan (Cozaar) 100 MG TABLET 1 TAB PO DAILY HTN (Reported) Magnesium Oxide (Magnesium) 400 MG CAPSULE 1 CAP PO BID LOW MAGNESIUM Metformin HCl 500 MG TABLET 1 TAB PO DAILY DM (Reported) Oxycodone HCl/Acetaminophen (Percocet 5-325 MG Tablet) 5 MG-325 MG TABLET 1-2 TAB PO Q4-6 PRN prn pain tylenol alternatively Vit C/Curtis AC/Lut/Copper/Znox (Preservision Lutein Softgel) 226-200-5 CAPSULE 2 TAB SUPPLEMENT (Reported) Triage Note: SIB DR MOSER FOR DEHYDRATION PER LABS THE OTHER DAY. RECENTLY HAD SX ON LARGE POLYP FROM COLONOSCOPY AND HAS TEMPORARY COLOSTOMY BAG. AFEBRILE. DENIES BLOOD TO CONTENTS. ALSO CONCERNED OF ERYTHEMA TO INCISIONAL SITE. HAS VNS 2X WEEKLY TO ASSIST IN COLOSTOMY CARE, NEEDS MORE SUPPORT. DENIES PAIN. REPORTS FATIGUE. INCREASED URINATION W HX DIABETES Triage Nurses Notes Reviewed? yes HPI: 77 yo F PMH DM, Diverticuosis and rectal polyp (s/p ileostomy) presenting with fatigue. Patient is recent s/p low anterior resection of the rectum with diverting loop ileostomy preformed by Dr. Moser on 02/08/18. Since discharge the patient has had difficulty maintaining PO intake, reports anorexia "I just don't feel like eating", but denies abdominal pain, abdominal distension, nausea, vomiting, increased/decreased or bloody ostomy output. Associated progressive malaise, fatigue, diffuse weakness, lightheadedness. Patient states that she has had ongoing redness and purulent drainage at midline incision site, prescribed amoxicillin by Dr. Moser which she has been unable to take, "because she needs to take it with food and shes not eating." Denies fevers, chills, chest pain, SOB, palpitations, cough or URI Sx, urinary Sx, headache, neck pain or focal neurologic Sx. (Diaz Lujan MD) Past History Travel History Traveled to [place] past 21 day No Medical History Any Pertinent Medical History? 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 Yes (Diaz Lujan MD) Review of Systems Review of Systems Constitutional: Reports: see HPI. EENTM: Reports: no symptoms. Respiratory: Reports: no symptoms. Cardiovascular: Reports: see HPI. GI: Reports: see HPI. Genitourinary: Reports: no symptoms. Musculoskeletal: Reports: no symptoms. Skin: Reports: see HPI. Neurological/Psychological: Reports: see HPI. Hematologic/Endocrine: Reports: no symptoms. Immunologic/Allergic: Reports: no symptoms. All Other Systems: Reviewed and Negative (Diaz Lujan MD) Physical Exam Physical Exam General Appearance: well developed/nourished, no apparent distress, alert, awake Head: atraumatic Ears, Nose, Throat: Dry Mucus Membranes Neck: normal inspection, full range of motion, no midline tenderness Respiratory: normal breath sounds, no respiratory distress, lungs clear Cardiovascular: regular rate/rhythm, normal peripheral pulses Gastrointestinal: soft, non-tender Comments: Abdomen: Ostomy bag in right abdomen with green liquid stool in bag, laproscopic incision sites in upper and lower abdomen with mild erythema consistent with healing, midline laparotomy site with erythema and mild purulent drainage, non- TTP, abdomen soft, mildly distended, non-TTP throughout without rebound or guarding Core Measures ACS in differential dx? No CVA/TIA Diagnosis: No Sepsis Present: No Sepsis Focused Exam Completed? No (Le SAINI,Diaz) Progress Differential Diagnoses I considered the following diagnoses in my evaluation of the patient: [ Sepsis, dehydration, metabolic derrangements] Plan of Care: Orders Procedure Date/time Status Admit to inpatient 02/23 1519 Active Add-on Test (ER Only) 02/23 1510 Active EKG 02/23 1406 Active TROPONIN LEVEL 02/23 1306 Complete URINALYSIS 02/23 122 Complete COMPREHENSIVE METABOLIC PANEL 02/23 122 Complete CBC WITHOUT DIFFERENTIAL 02/23 122 Complete Current Medications Sig/Cirilo Start time Last Medication Dose Stop Time Status Admin Sodium Chloride 1,000 ML BOLUS ONE 02/23 1445 AC 02/23 (Normal Saline 0.9%) 02/23 1644 1523 Laboratory Tests 02/23/18 1325: Urine Color STRAW, Urine Clarity CLEAR, Urine pH 6.0, Ur Specific [place] 1.010, Urine Protein NEG, Urine Ketones TRACE H, Urine Nitrite NEG, Urine Bilirubin NEG, Urine Urobilinogen 0.2, Ur Leukocyte Esterase NEG, Ur Microscopic EXAM NOT REQUIRED, Urine Hemoglobin NEG, Urine Glucose NEG 02/23/18 1306: Anion Gap 13, Estimated GFR 43 L, BUN/Creatinine Ratio 39.2 H, Glucose 116 H, Calcium 9.2, Total Bilirubin 0.5, AST 16, ALT 41, Alkaline Phosphatase 120, Troponin I < 0.01, Total Protein 6.3, Albumin 3.6, Globulin 2.7, Albumin/ Globulin Ratio 1.3, CBC w Diff NO MAN DIFF REQ, RBC 3.98 L, MCV 87.4, MCH 28.8, MCHC 32.9 L, RDW 13.8, MPV 6.8 L, Gran % 90.3 H, Lymphocytes % 3.6 L, Monocytes % 5.1, Eosinophils % 0.6, Basophils % 0.4, Absolute Granulocytes 10.1 H, Absolute Lymphocytes 0.4 L, Absolute Monocytes 0.6, Absolute Eosinophils 0.1 , Absolute Basophils 0 Physician MDM: 77 yo F PMH DM, Diverticuosis and rectal polyp (s/p ileostomy) presenting with fatigue. VSS, normal HR and BP, remainder of exam as above. DDx: Metabolic derrangement, dehydration, Ileus (less likely SBO), post-operative infection. At the time of my initial evaluation labs had alredy been sent and resulted from triage. CBC remarkable for mild leukocytosis of 11.2, anemia of 11.2 (greatly improved from 5.9 on 02/11, ?hemoconcerntration), thrombocytosis. CMP with hyponatremia to 125, hyperkalemia to 5.8, Cr at 1.2 with ANTHONY. ECG ordered, show ?mild peaking of T waves, will treat conservatively with insulin, dextrose, Ca gluconate, and begin IVF for definitite treatment of hyponatremia and hyperkalemia. Vancomycin and ceftazadime ordered for presumed surgical site infection (patient was prescribed amoxicilling, wound appears infected on exam). The patient has no abdominal pain or tenderness, I have a low concern for acute surgical pathology, imaging deferred to admitting team. UA without signs of infection. Case discussed with Dr. Moser, will admit the patient to his service for ongoing IVF and management s/p recent surgery. Initial ED EKG: NSR (Le SAINI,Diaz) Departure Departure Disposition: STILL A PATIENT Condition: Stable Clinical Impression Primary Impression: Hyponatremia Secondary Impressions: Dehydration, Hyperkalemia Referrals: Nicolette Corrales MD (PCP/Family) Departure Forms: Customer Survey General Discharge Information Admission Note Spoke With: Christopher Moser Jr., DO Documentation of Exam: Documentation of any treatments & extenuating circumstances including Concerns Regarding Discharge (functional status, medication knowledge or non-compliance, living conditions, etc.) that warrant an admission rather than observation: [ Patient presents with decreased by mouth intake and dehydration in the setting of recent laparoscopic colon resection and ileostomy placement, the patient was found in the emergency department to have hyponatremia and hyperkalemia, requiring treatment with IV medications for correction of both, the patient cries admission to the hospital for ongoing IV fluids, further evaluation by surgery, monitoring, repeat lab work, if discharged the patient is a high likelihood of progressive dehydration, with progressive metabolic derangements, leading to arrhythmias, cardiovascular collapse, and possibly .] (Le SAINI,Diaz) Resident Co-Sign Statement Statement: ED Attending supervision documentation- x I saw and evaluated the patient. I have also reviewed all the pertinent lab results and diagnostic results. I agree with the findings and the plan of care as documented in the Resident's documentation. [] I have reviewed the ED Record and agree with the Resident's documentation. [] Additions or exceptions (if any) to the Resident's note and plan are summarized below: [] (Germán SAINI,Eric) Critical Care Note Critical Care Note Critical Care Time: 30-74 min (Le SAINI,Diaz)
[2018-02-23] MEDS ORDERED: ADVAIR 250-501 EACH INH (17:47)
[2018-02-23] MEDS ORDERED: ALBUTEROL2.5 MG/3 M INH/SOL (17:56)
[2018-02-23] MEDS ORDERED: AMOX-CLAV 500-1 EACH PO (17:57)
[2018-02-23] MEDS ORDERED: LOMOTIL 2.5-0.1 EACH PO (17:57)
--- NOTE | 2018-02-23 19:14 | Admission Core Measures ---
Acute Coronary Syndrome (CM) ACS Core Measures Acute Coronary Syndrome Diagnosis No Congestive Heart Failure (NEW) CHF Core Measures Congestive Heart Failure Diagnosis No Cerebrovascular Accident (NEW) CVA Core Measures CVA/TIA Diagnosis No Venous Thromboembolism VTE Core Allie (View Protocol) VTE Risk Factors Age>40 No Mechanical VTE Prophylaxis d/t N/A MechProphylax Ordered No VTE Pharm Prophylaxis d/t NA PharmProphylax ordered Problem List As ranked by this Provider includes Assessment & Plan 1. Dehydration 2. Hyperkalemia 3. Hyponatremia 4. Ileostomy status HOME MEDS Home Med List Albuterol Sulfate 2.5 MG/3 ML (0.083 %) VIAL.NEB 1 Vial INH/YOU Q4P PRN SOB ( Reported) Amoxicillin/Potassium Clav (Amox-Clav 500-125 MG Tablet) 500 MG-125 MG TABLET 1 TAB PO BID UTI (Reported) Atorvastatin Calcium 10 MG TABLET 1 TAB PO DAILY CHOLESTEROL (Reported) Cyanocobalamin (Vitamin B-12) 1,000 MCG TABLET 1 TAB PO DAILY SUPPLEMENT ( Reported) Diphenoxylate HCl/Atropine (Lomotil 2.5-0.025 MG Tablet) 2.5 MG-0.025 MG TABLET 1 TAB PO TID PRN DIARRHEA (Reported) Fluticasone/Salmeterol (Advair 250-50 Diskus) 250 MCG-50 MCG/DOSE BLST.W.DEV 1 PUF INH BID SOB (Reported) Glipizide 5 MG TABLET 1 TAB PO DAILY DM (Reported) Loperamide HCl (Loperamide) 2 MG CAPSULE 2 MG PO TID PRN diarrhea from iliostomy Losartan (Cozaar) 100 MG TABLET 1 TAB PO DAILY HTN (Reported) Magnesium Oxide (Magnesium) 400 MG CAPSULE 1 CAP PO BID LOW MAGNESIUM Metformin HCl 500 MG TABLET 1 TAB PO DAILY DM (Reported) Oxycodone HCl/Acetaminophen (Percocet 5-325 MG Tablet) 5 MG-325 MG TABLET 1-2 TAB PO Q4-6 PRN prn pain
--- NOTE | 2018-02-23 19:14 | History & Physical Pre-Op ---
General Information and HPI MD Statement: I have seen and personally examined MARYDAY KABA and documented this H&P. The patient is a 77 year old F who presented with a patient stated chief complaint of []. History of Present Illness: 77F POD15 sp robotic LAR with DLI due to colonic polyp unammenable to colonoscopic resection. She has been very weak, lightheaded, and confused at home. She saw Dr. Moser this am in his office, and he sent her to the ED. She lives alone, and had VNA services every 3 days. Per pt, she does not know how often she empties her ileostomy bag, and was unaware that she should be measuring the output. Dr. Moser saw her earlier this week, and started her on lomotil, though pt hasnt been taking this. She has been thirsty, and complains of excessive urination. Her appetite is not great, and has not eaten today. She denies abd pain, nausea or vomiting. Allergies/Medications Allergies: Coded Allergies: cyclobenzaprine (From FLEXERIL) (INCREASED PAIN 02/07/18) Home Med list Albuterol Sulfate 2.5 MG/3 ML (0.083 %) VIAL.NEB 1 Vial INH/YOU Q4P PRN SOB ( Reported) Amoxicillin/Potassium Clav (Amox-Clav 500-125 MG Tablet) 500 MG-125 MG TABLET 1 TAB PO BID UTI (Reported) Atorvastatin Calcium 10 MG TABLET 1 TAB PO DAILY CHOLESTEROL (Reported) Cyanocobalamin (Vitamin B-12) 1,000 MCG TABLET 1 TAB PO DAILY SUPPLEMENT ( Reported) Diphenoxylate HCl/Atropine (Lomotil 2.5-0.025 MG Tablet) 2.5 MG-0.025 MG TABLET 1 TAB PO TID PRN DIARRHEA (Reported) Fluticasone/Salmeterol (Advair 250-50 Diskus) 250 MCG-50 MCG/DOSE BLST.W.DEV 1 PUF INH BID SOB (Reported) Glipizide 5 MG TABLET 1 TAB PO DAILY DM (Reported) Loperamide HCl (Loperamide) 2 MG CAPSULE 2 MG PO TID PRN diarrhea from iliostomy Losartan (Cozaar) 100 MG TABLET 1 TAB PO DAILY HTN (Reported) Magnesium Oxide (Magnesium) 400 MG CAPSULE 1 CAP PO BID LOW MAGNESIUM Metformin HCl 500 MG TABLET 1 TAB PO DAILY DM (Reported) Oxycodone HCl/Acetaminophen (Percocet 5-325 MG Tablet) 5 MG-325 MG TABLET 1-2 TAB PO Q4-6 PRN prn pain tylenol alternatively Vit C/Curtis AC/Lut/Copper/Znox (Preservision Lutein Softgel) 226-200-5 CAPSULE 2 TAB SUPPLEMENT (Reported) Past History Medical History Cardiovascular: hypertension Respiratory: COPD Gastrointestinal: ileostomy status, colonic polyp Renal: NONE Musculoskeletal: NONE Endocrine: diabetes Blood Disorders: NONE History of MRSA: No History of VRE: No History of CDIFF: No Surgical History Pertinent Surgical History: breast biopsy, cholecystectomy, hip replacement, : robotic LAR with DLI for unresectable sigmoid polyp (benign) Past Family/Social History Psychosocial History Where Do You Live? Home Who Do You Live With? self Exam & Diagnostic Data Last 24 Hrs of Vital Signs/I&O Vital Signs Date Time Temp Pulse Resp B/P B/P Pulse O2 O2 Flow FiO2 Mean Ox Delivery Rate 02/23 2031 98.6 88 18 148/67 98 Room Air 02/23 1805 83 18 141/63 97 Room Air 02/23 1635 98.3 90 18 158/65 96 Room Air 02/23 1504 98 Room Air 02/23 1200 98.1 90 18 119/61 99 Room Air Intake & Output 02/23 1600 05 0800 02/23 0000 Intake Total Output Total Balance Patient 157 lb Weight Weight Reported by Patient Measurement Method Physical Exam: gen- nad card- s1s2 rrr pulm- ctab abd- obese, soft, nontender. midline incision with erythematous skin breakdown, fibrin at base of wound- clear serous drinage from pinpoint opening superior aspect of wound. stoma pink, viable, functioning, full appliance bag of watery liquid brown stool. ostomy appliance poorly fitting- removed, skin surrounding stoma macerated and broken down. skin cleansed, new appliance fitted. Last 24 Hrs of Labs/Cullen: Laboratory Tests 02/23/18 1325: Urine Osmolality 258 L 02/23/18 1325: Urine Color STRAW, Urine Clarity CLEAR, Urine pH 6.0, Ur Specific Collins 1.010, Urine Protein NEG, Urine Ketones TRACE H, Urine Nitrite NEG, Urine Bilirubin NEG, Urine Urobilinogen 0.2, Ur Leukocyte Esterase NEG, Ur Microscopic EXAM NOT REQUIRED, Urine Hemoglobin NEG, Urine Glucose NEG 02/23/18 1306: Anion Gap 13, Estimated GFR 43 L, BUN/Creatinine Ratio 39.2 H, Glucose 116 H, Serum Osmolality 278 L, Calcium 9.2, Total Bilirubin 0.5, AST 16, ALT 41, Alkaline Phosphatase 120, Troponin I < 0.01, Total Protein 6.3, Albumin 3.6, Globulin 2.7, Albumin/Globulin Ratio 1.3, CBC w Diff NO MAN DIFF REQ, RBC 3.98 L, MCV 87.4, MCH 28.8, MCHC 32.9 L, RDW 13.8, MPV 6.8 L, Gran % 90.3 H, Lymphocytes % 3.6 L, Monocytes % 5.1, Eosinophils % 0.6, Basophils % 0.4, Absolute Granulocytes 10.1 H, Absolute Lymphocytes 0.4 L, Absolute Monocytes 0.6, Absolute Eosinophils 0.1, Absolute Basophils 0 Assessment/Plan Assessment/Plan: A- 77yoF POD15 sp robotic LAR with DLI for colonic polyp not ammenable to colonoscopic resection (path= benign), now returns to ED with ANTHONY and electrolyte imbalances related to dehydration from likely high output ileostomy. True quantity of output unknown, as pt not measuring stool at home. P- admit as inpt to surgical service. lytes corrected in ED- recheck labs 10pm, and in am. IVF continuous STRICT I&Os. clear liquid diet riss, fingersticks home meds unasyn for wound breakdown- likely seroma. needs ostomy teaching- would benefit from wound RN care will need placement to STR as has not done well living alone with VNA care appreciate medicine input for ANTHONY and lyte correction dw attending As Ranked By This Provider Problem List: 1. Ileostomy status 2. Dehydration 3. Hyperkalemia 4. Hyponatremia
[2018-02-23 23:01] LABS: ABSOLUTE BASOPHIL COUNT 0 /CUMM (0.0-0.2); ABSOLUTE EOSINOPHIL COUNT 0.3 /CUMM (0.0-0.7); ABSOLUTE GRANULOCYTE CT 6.9 /CUMM (1.4-6.5); ABSOLUTE LYMPH COUNT 0.6 /CUMM (1.2-3.4); ABSOLUTE MONOCYTE COUNT 0.8 /CUMM (0.10-0.60); BASOPHIL % 0 % (0.0-2.0); EOSINOPHIL % 3.2 % (0-5); HEMATOCRIT 31.8 % (37-47); MEAN CORPUSCULAR HGB 28.7 PG (27.0-31.0); MEAN CORPUSCULAR VOLUME 87.1 FL (81.0-99.0); MEAN PLATELET VOLUME 7.6 FL (7.4-10.4); PLATELET COUNT 482 /CUMM (130-400); RBC DISTRIBUTION WIDTH 13.6 % (11.5-14.5); RED BLOOD CELL CT 3.65 /CUMM (4.20-5.40); WHITE BLOOD CELL COUNT 8.6 /CUMM (4.8-10.8)
[2018-02-23 23:46] VITALS: BP 132/64
[2018-02-24 04:07] LABS: ABSOLUTE BASOPHIL COUNT 0 /CUMM (0.0-0.2); ABSOLUTE EOSINOPHIL COUNT 0.2 /CUMM (0.0-0.7); ABSOLUTE GRANULOCYTE CT 5.1 /CUMM (1.4-6.5); ABSOLUTE LYMPH COUNT 0.6 /CUMM (1.2-3.4); ABSOLUTE MONOCYTE COUNT 0.6 /CUMM (0.10-0.60); BASOPHIL % 0.6 % (0.0-2.0); EOSINOPHIL % 2.8 % (0-5); GRANULOCYTE % 77.4 % (42.2-75.2); HEMATOCRIT 29.4 % (37-47); MEAN CORPUSCULAR HGB 28.3 PG (27.0-31.0); MEAN CORPUSCULAR HGB CONC 32.5 G/DL (33.0-37.0); MEAN PLATELET VOLUME 6.8 FL (7.4-10.4); PLATELET COUNT 415 /CUMM (130-400); RBC DISTRIBUTION WIDTH 13.7 % (11.5-14.5); RED BLOOD CELL CT 3.38 /CUMM (4.20-5.40); WHITE BLOOD CELL COUNT 6.6 /CUMM (4.8-10.8)
--- NOTE | 2018-02-24 04:30 | Cons- Medical ---
Javon Chicas 02/24/18 0429: General Information and HPI Consulting Request Date of Consult: 02/24/18 Requested By: Christopher Moser Jr., DO Reason for Consult: Diabetes, hypertension, hyponatremia Source of Information: patient, family Exam Limitations: no limitations History of Present Illness: Patient is a 77-year-old female with past medical history of HTN, COPD, diabetes , diverticulosis, colonic polyp s/p colectomy with ileostomy(02/08/2018) presented to the ED for weakness, dehydration and surgical site infection. Patient had a colectomy for polyps/diverticulitis with diverting loop ileostomy by on 02/08/2018 . Postprocedure patient has been very weak, fatigued, with nausea, vomiting had decreased by mouth intake. She has been very lightheaded, dizzy and hasn't been unable to ambulate with her walker which she usually does. She also reported intense pain around the left thigh where she has a metal plate in due to maneuvering in the OR. About a week back she noted some rash around her surgical site with serous oozing discharge. She saw Dr. Moser 3 days back for prerna removal and was prescribed amoxicillin for it. However patient reports she hasn't been able to take it due to significant nausea. She denies any fevers, chills, chest pain, palpitation, abdominal pain, urinary symptoms. She had multiple episodes of loose stools with improvement on Imodium. The medicine consult was called for hypernatremia, hypertension, hyperlipidemia and diabetes. Her labs in the ED were significant for white count of 11.2, H&H 11.4/34.8, platelet count 631, chemistry significant for sodium of 125(repeat sodium 133), potassium 5.8(repeat 4.7), creatinine 1.2(repeat 0.9), glucose 116. Serum osmolality 278, urine osmolality 258. UA unimpressive. Allergies/Medications Allergies: Coded Allergies: cyclobenzaprine (From FLEXERIL) (INCREASED PAIN 02/07/18) Home Med List: Albuterol Sulfate 2.5 MG/3 ML (0.083 %) VIAL.NEB 1 Vial INH/YOU Q4P PRN SOB ( Reported) Amoxicillin/Potassium Clav (Amox-Clav 500-125 MG Tablet) 500 MG-125 MG TABLET 1 TAB PO BID UTI (Reported) Atorvastatin Calcium 10 MG TABLET 1 TAB PO DAILY CHOLESTEROL (Reported) Cyanocobalamin (Vitamin B-12) 1,000 MCG TABLET 1 TAB PO DAILY SUPPLEMENT ( Reported) Diphenoxylate HCl/Atropine (Lomotil 2.5-0.025 MG Tablet) 2.5 MG-0.025 MG TABLET 1 TAB PO TID PRN DIARRHEA (Reported) Fluticasone/Salmeterol (Advair 250-50 Diskus) 250 MCG-50 MCG/DOSE BLST.W.DEV 1 PUF INH BID SOB (Reported) Glipizide 5 MG TABLET 1 TAB PO DAILY DM (Reported) Loperamide HCl (Loperamide) 2 MG CAPSULE 2 MG PO TID PRN diarrhea from iliostomy Losartan (Cozaar) 100 MG TABLET 1 TAB PO DAILY HTN (Reported) Magnesium Oxide (Magnesium) 400 MG CAPSULE 1 CAP PO BID LOW MAGNESIUM Metformin HCl 500 MG TABLET 1 TAB PO DAILY DM (Reported) Oxycodone HCl/Acetaminophen (Percocet 5-325 MG Tablet) 5 MG-325 MG TABLET 1-2 TAB PO Q4-6 PRN prn pain tylenol alternatively Vit C/Curtis AC/Lut/Copper/Znox (Preservision Lutein Softgel) 226-200-5 CAPSULE 2 TAB SUPPLEMENT (Reported) Review of Systems Review of Systems Constitutional: Reports: malaise, weakness. EENTM: Reports: no symptoms. Cardiovascular: Reports: no symptoms. Respiratory: Reports: no symptoms. Genitourinary: Reports: no symptoms. Musculoskeletal: Reports: joint pain, joint swelling. Skin: Reports: rash (surgical site rash.). Neurological/Psychological: Reports: no symptoms. Past History Travel History Traveled to [place] past 21 day No Medical History Cardiovascular: hypertension Respiratory: COPD Gastrointestinal: ileostomy status colonic polyp Renal: NONE Musculoskeletal: NONE Endocrine: diabetes Blood Disorders: NONE Surgical History Surgical History: breast biopsy, cholecystectomy, hip replacement, 02/08/2018: robotic LAR with DLI for unresectable sigmoid polyp (benign) Psychosocial History Where Do You Live? Home Who Do You Live With? self Smoking Status: Never Smoked Exam & Diagnostic Data Last 24 Hrs of Vital Signs/I&O Vital Signs Date Time Temp Pulse Resp B/P B/P Pulse O2 O2 Flow FiO2 Mean Ox Delivery Rate 05/05 2346 97.8 93 20 132/64 98 02/23 2031 98.6 88 18 148/67 98 Room Air 02/23 1805 83 18 141/63 97 Room Air 02/23 1635 98.3 90 18 158/65 96 Room Air 02/23 1504 98 Room Air 02/23 1200 98.1 90 18 119/61 99 Room Air Intake & Output 02/24 0800 05 0000 02/23 1600 Intake Total 245 Output Total Balance 245 Intake, IV 125 Intake, Oral 120 Patient 86.183 kg 71.214 kg Weight Weight Bed scale Reported by Patient Measurement Method Physical Exam General Appearance: well developed/nourished, anxious, moderate distress Head: atraumatic, normal appearance Eyes: Bilateral: normal appearance, PERRL, EOMI. Ears, Nose, Throat: normal pharynx Neck: normal inspection Respiratory: normal breath sounds, chest non-tender Cardiovascular: regular rate/rhythm Gastrointestinal: normal bowel sounds, rash seen around the surgical scar below umbilicus with some serous discharge.An opening noted on the top of the wound., colostomy bag on the right abdomen draining faeces Extremities: normal inspection, normal capillary refill, normal range of motion Last 24 Hrs of Labs/Cullen: Laboratory Tests 02/24/18 0345: Anion Gap 9, Estimated GFR > 60, BUN/Creatinine Ratio 34.4 H, CBC w Diff NO MAN DIFF REQ, RBC 3.38 L, MCV 87.0, MCH 28.3, MCHC 32.5 L, RDW 13.7, MPV 6.8 L, Gran % 77.4 H, Lymphocytes % 9.7 L, Monocytes % 9.5 H, Eosinophils % 2.8, Basophils % 0.6, Absolute Granulocytes 5.1, Absolute Lymphocytes 0.6 L, Absolute Monocytes 0.6, Absolute Eosinophils 0.2, Absolute Basophils 0 02/24/18 0005: Anion Gap 9, Estimated GFR > 60, BUN/Creatinine Ratio 37.8 H, Phosphorus 3.2, Magnesium 1.7 02/23/18 2210: CBC w Diff NO MAN DIFF REQ, RBC 3.65 L, MCV 87.1, MCH 28.7, MCHC 33.0, RDW 13.6 , MPV 7.6, Gran % 80.0 H, Lymphocytes % 7.1 L, Monocytes % 9.7 H, Eosinophils % 3.2, Basophils % 0, Absolute Granulocytes 6.9 H, Absolute Lymphocytes 0.6 L, Absolute Monocytes 0.8 H, Absolute Eosinophils 0.3, Absolute Basophils 0 02/23/18 1325: Urine Osmolality 258 L 02/23/18 1325: Urine Color STRAW, Urine Clarity CLEAR, Urine pH 6.0, Ur Specific Harvey 1.010, Urine Protein NEG, Urine Ketones TRACE H, Urine Nitrite NEG, Urine Bilirubin NEG, Urine Urobilinogen 0.2, Ur Leukocyte Esterase NEG, Ur Microscopic EXAM NOT REQUIRED, Urine Hemoglobin NEG, Urine Glucose NEG 02/23/18 1306: Anion Gap 13, Estimated GFR 43 L, BUN/Creatinine Ratio 39.2 H, Glucose 116 H, Serum Osmolality 278 L, Calcium 9.2, Total Bilirubin 0.5, AST 16, ALT 41, Alkaline Phosphatase 120, Troponin I < 0.01, Total Protein 6.3, Albumin 3.6, Globulin 2.7, Albumin/Globulin Ratio 1.3, CBC w Diff NO MAN DIFF REQ, RBC 3.98 L, MCV 87.4, MCH 28.8, MCHC 32.9 L, RDW 13.8, MPV 6.8 L, Gran % 90.3 H, Lymphocytes % 3.6 L, Monocytes % 5.1, Eosinophils % 0.6, Basophils % 0.4, Absolute Granulocytes 10.1 H, Absolute Lymphocytes 0.4 L, Absolute Monocytes 0.6, Absolute Eosinophils 0.1, Absolute Basophils 0 Assessment/Plan Assessment/Plan Patient is a 77-year-old female with past medical history of HTN, COPD, diabetes , diverticulosis, colonic polyp s/p colectomy with ileostomy(02/08/2018) presented to the ED for weakness, dehydration and surgical site infection. Assessment #1 Status post colectomy with diverting loop ileostomy(POD#15) #2 surgical site infection #3hyponatremia #4 hyperkalemia #5 dehydration #6 acute kidney injury #7 diabetes mellitus Plan * Patient received IV ceftazidime and vancomycin for surgical site infection. Antibiotics per primary team. * Blood and wound cultures * Hyponatremia due to poor po intake( tea and toast diet). Patient received 1 L of fluids in the ED. Sodium corrected to 133(from 125 -8 mEq in 8 hours) continue to monitor sodium every 4 hours. Repeat sodium, If appropriately increasing gradually then continue NS drip. Avoid correction more than 8 Meq in 24 hour. If acutely increasing start D5W, Nephro consult. Do not correct more than 6-8 mEq in 24 hours for fear of pontine myelinolysis * Hyperkalemia corrected with calcium gluconate/dextrose/insulin. * Hold oral hypoglycemic agents. 3 times a day Accu-Cheks. NovoLog and Levemir sliding scales. * Hold losartan for acute kidney injury. Can give when necessary by mouth 25 mg hydralazine if blood pressure high * Continue Zofran for nausea. * Surgical wound care as per surgery. Ileostomy was changed today by PA. * Pain control per surgery * DVT prophylaxis subcutaneous heparin * Full code Problem List: 1. Hyperkalemia 2. Hyponatremia 3. Dehydration 4. Ileostomy status Consult Acknowledgment - Thank you for your consult request. Beau Calderon 02/24/18 0641: Assessment/Plan Consult Acknowledgment - Thank you for your consult request. Attending MD Review Statement Attending Statement Attending MD Statement: examined this patient, discuss w/resident/PA/FACE BURLER, agreed w/resident/PA/FACE BURLER, reviewed EMR data (avail), reviewed images, amended to note Attending Assessment/Plan: CC: Abnormal labs PMH: DM, HTN, recent abdominal surgery for partial colon resection with a colostomy for polyp Patient was following up with Dr. Moser after her recent surgery of colonic resection and colostomy postoperative day 15. She was feeling very tired, lethargic since the discharge. She is unable to take anything orally secondary to loss of appetite. She has been eating some toast and coffee and similar things. She also noticed that her abdominal incision was getting red and had serous discharge. Labs were obtained at Dr. Moser's service office and patient was suggested to go to ER. Vitals: Temperature 98.1, pulse 90, RR 18, blood pressure 119/61, saturating 99% on room air. On exam: A O 3, cooperative, no acute distress, neck supple, JVD normal, no lymphadenopathy, mucosa dry, no focal neurological deficit, no dependent edema, no obvious skin rashes or inflammation CVS: S1-S2, RRR. RS: Clear to auscultate bilaterally. Abdomen: Soft, colostomy back and right side, mild serous discharge from the surgical wound, mild redness surrounding it, bowel sounds present. Assessment and plan + Hyponatremia : Appears secondary to low solute (Tea and toast hyponatremia). encourage PO intake. Patient received 1 L NS in ER, Repeat sodium, If appropriately increasing gradually then continue NS drip. Avoid correction more than 8 Meq in 24 hour. If acutely increasing : then she will need D5W, Nephro consult. + Acute kidney injury : prerenal secondary to dehydration, encourage by mouth intake. Fluid plan as mentioned above, hold losartan + Hyperkalemia : Secondary to acute kidney injury, repeat potassium, patient may need Kayexalate if persistently elevated she received calcium gluconate, insulin and dextrose in ER. Continue to monitor on telemetry + Antibiotics according to primary team + DM: Discontinue metformin and glipizide, continue sliding scale insulin. + Hypertension: Discontinue losartan secondary to acute kidney injury, if blood pressure is persistently elevated then try hydralazine by mouth or IV Appreciate consult we will follow along
[2018-02-24 06:57] VITALS: BP 90/60
--- NOTE | 2018-02-24 10:27 | PN- General Surgery ---
See Addendum Subjective Subjective: No complaints. She feels like the ileostomy output has slowed. Reportedly the bag was full this morning, and emptied (but not recorded per nurse). Tolerating clears. No nausea. Out of bed to commode. No dizziness. No shortness of breath. No chest pains. Objective Vital Signs and I&Os Vital Signs Date Time Temp Pulse Resp B/P B/P Pulse O2 O2 Flow FiO2 Mean Ox Delivery Rate 02/24 0829 Room Air Room Air 02/24 0657 98.5 85 20 90/60 97 Room Air 02/23 2346 97.8 93 20 132/64 98 / 2031 98.6 88 18 148/67 98 Room Air 02/23 1805 83 18 141/63 97 Room Air 02/23 1635 98.3 90 18 158/65 96 Room Air 02/23 1504 98 Room Air 02/23 1200 98.1 90 18 119/61 99 Room Air Intake & Output 02/24 1600 02/24 0802/24 0000 02/23 1600 02/23 0802/23 0000 Intake Total 320 245 Output Total 500 Balance -180 245 Intake, IV 200 125 Intake, Oral 120 120 Output, Urine 500 Patient 190 lb 157 lb Weight Weight Bed scale Reported by Patient Measurement Method Physical Exam: General - alert & oriented x 3. comfortable. no acute distress. Lungs - clear Cardiac - s1s2. reg. Abdomen - soft. midline incision with small opening superiorly, with scant serous drainage on dressing. ileostomy bag with brown liquid in bag. skin folds with nystatin powder in place. Extremities - warm bilaterally. athrombics in place. Current Medications: Current Medications Sig/Cirilo Start time Last Medication Dose Route Stop Time Status Admin Acetaminophen 650 MG Q6PRN PRN 02/23 2030 AC PO Albuterol Sulfate 3 ML Q4H PRN 02/23 2045 AC INH Ampicillin Sodium/ 1,500 MG Q6 02/23 2359 AC 02/24 Sulbactam Sodium IV 0546 Sodium Chloride 100 ML Budesonide/ 2 PUF BID 02/23 2100 AC 02/24 Formoterol Fumarate INH 0842 Calcium Gluconate 0 .STK-MED ONE 02/23 1515 DC IV Calcium Gluconate 1 GM ONCE ONE 02/23 1445 DC 02/23 Sodium Chloride 100 ML IV 02/23 1544 1523 Ceftazidime 0 .STK-MED ONE 02/23 1646 DC .ROUTE Ceftazidime 1,000 MG ONCE ONE 02/23 1515 DC 02/23 IV 02/23 1516 1645 Dextrose 0 .STK-MED ONE 02/23 1516 DC IV Dextrose 25 GM ONCE ONE 02/23 1445 DC 02/23 IV 02/23 1446 1523 Dextrose/Sodium 1,000 ML .Q8H 02/23 2030 DC 02/23 Chloride IV 2217 Diphenoxylate HCl/ 5 MG TID 02/23 2100 AC 02/24 Atropine PO 0839 Heparin Sodium 5,000 UNIT Q8 02/23 2200 AC 02/24 (Porcine) SC 0546 Insulin Aspart 0 TIDAC 02/24 0800 AC SC Insulin Aspart 0 AT BEDTIME 02/23 2100 AC SC Insulin Human Regular 8 UNITS ONCE ONE 02/23 1445 DC 02/23 IV 02/23 144 1523 Losartan Potassium 100 MG DAILY 02/24 0900 CAN PO Morphine Sulfate 2 MG Q2P PRN 02/23 2030 AC IV Nystatin 1 GENA TID 02/23 2345 AC 02/24 TOP 0843 Ondansetron HCl 4 MG Q6-PRN PRN 02/23 2030 AC IV Sodium Chloride 1,000 ML BOLUS ONE 02/23 1445 DC 02/23 IV 02/23 1644 1523 Vancomycin HCl 0 .STK-MED ONE 02/23 164 DC .ROUTE Vancomycin HCl 1,000 MG ONCE ONE 02/23 1515 DC 02/23 Sodium Chloride 250 ML IV 02/23 1614 1716 Results Last 48 Hours of Labs: Laboratory Tests 02/24 02/24 02/24 0600 0345 0005 Chemistry Sodium (137 - 145 mmol/L) 134 L 133 L Potassium (3.5 - 5.1 mmol/L) 4.8 4.7 Chloride (98 - 107 mmol/L) 102 99 Carbon Dioxide (22 - 30 mmol/L) 23 24 Anion Gap (5 - 16) 9 9 BUN (7 - 17 mg/dL) 31 H 34 H Creatinine (0.5 - 1.0 mg/dL) 0.9 0.9 Estimated GFR (>60 ml/min) > 60 > 60 BUN/Creatinine Ratio (7 - 25 %) 34.4 H 37.8 H Phosphorus (2.5 - 4.5 mg/dL) Cancelled 3.2 Magnesium (1.6 - 2.3 mg/dL) 1.7 Hematology CBC w Diff NO MAN DIFF REQ WBC (4.8 - 10.8 /CUMM) 6.6 RBC (4.20 - 5.40 /CUMM) 3.38 L Hgb (12.0 - 16.0 G/DL) 9.6 L Hct (37 - 47 %) 29.4 L MCV (81.0 - 99.0 FL) 87.0 MCH (27.0 - 31.0 PG) 28.3 MCHC (33.0 - 37.0 G/DL) 32.5 L RDW (11.5 - 14.5 %) 13.7 Plt Count (130 - 400 /CUMM) 415 H MPV (7.4 - 10.4 FL) 6.8 L Gran % (42.2 - 75.2 %) 77.4 H Lymphocytes % (20.5 - 51.1 %) 9.7 L Monocytes % (1.7 - 9.3 %) 9.5 H Eosinophils % (0 - 5 %) 2.8 Basophils % (0.0 - 2.0 %) 0.6 Absolute Granulocytes (1.4 - 6.5 /CUMM) 5.1 Absolute Lymphocytes (1.2 - 3.4 /CUMM) 0.6 L Absolute Monocytes (0.10 - 0.60 /CUMM) 0.6 Absolute Eosinophils (0.0 - 0.7 /CUMM) 0.2 Absolute Basophils (0.0 - 0.2 /CUMM) 0 02/23 02/23 2210 1325 Hematology CBC w Diff NO MAN DIFF REQ WBC (4.8 - 10.8 /CUMM) 8.6 RBC (4.20 - 5.40 /CUMM) 3.65 L Hgb (12.0 - 16.0 G/DL) 10.5 L Hct (37 - 47 %) 31.8 L MCV (81.0 - 99.0 FL) 87.1 MCH (27.0 - 31.0 PG) 28.7 MCHC (33.0 - 37.0 G/DL) 33.0 RDW (11.5 - 14.5 %) 13.6 Plt Count (130 - 400 /CUMM) 482 H MPV (7.4 - 10.4 FL) 7.6 Gran % (42.2 - 75.2 %) 80.0 H Lymphocytes % (20.5 - 51.1 %) 7.1 L Monocytes % (1.7 - 9.3 %) 9.7 H Eosinophils % (0 - 5 %) 3.2 Basophils % (0.0 - 2.0 %) 0 Absolute Granulocytes (1.4 - 6.5 /CUMM) 6.9 H Absolute Lymphocytes (1.2 - 3.4 /CUMM) 0.6 L Absolute Monocytes (0.10 - 0.60 /CUMM) 0.8 H Absolute Eosinophils (0.0 - 0.7 /CUMM) 0.3 Absolute Basophils (0.0 - 0.2 /CUMM) 0 Urines Urine Osmolality (300 - 1000 MOSM/KG) 258 L /05 05/ 1325 1306 Chemistry Sodium (137 - 145 mmol/L) 125 L Potassium (3.5 - 5.1 mmol/L) 5.8 H Chloride (98 - 107 mmol/L) 89 L Carbon Dioxide (22 - 30 mmol/L) 23 Anion Gap (5 - 16) 13 BUN (7 - 17 mg/dL) 47 H Creatinine (0.5 - 1.0 mg/dL) 1.2 H Estimated GFR (>60 ml/min) 43 L BUN/Creatinine Ratio (7 - 25 %) 39.2 H Glucose (65 - 99 mg/dL) 116 H Serum Osmolality (285 - 295 MOSM/KG) 278 L Calcium (8.4 - 10.2 mg/dL) 9.2 Total Bilirubin (0.2 - 1.3 mg/dL) 0.5 AST (14 - 36 U/L) 16 ALT (9 - 52 U/L) 41 Alkaline Phosphatase (<127 U/L) 120 Troponin I (< 0.11 ng/ml) < 0.01 Total Protein (6.3 - 8.2 g/dL) 6.3 Albumin (3.5 - 5.0 g/dL) 3.6 Globulin (1.9 - 4.2 gm/dL) 2.7 Albumin/Globulin Ratio (1.1 - 2.2 %) 1.3 Hematology CBC w Diff NO MAN DIFF REQ WBC (4.8 - 10.8 /CUMM) 11.2 H RBC (4.20 - 5.40 /CUMM) 3.98 L Hgb (12.0 - 16.0 G/DL) 11.4 L Hct (37 - 47 %) 34.8 L MCV (81.0 - 99.0 FL) 87.4 MCH (27.0 - 31.0 PG) 28.8 MCHC (33.0 - 37.0 G/DL) 32.9 L RDW (11.5 - 14.5 %) 13.8 Plt Count (130 - 400 /CUMM) 631 H MPV (7.4 - 10.4 FL) 6.8 L Gran % (42.2 - 75.2 %) 90.3 H Lymphocytes % (20.5 - 51.1 %) 3.6 L Monocytes % (1.7 - 9.3 %) 5.1 Eosinophils % (0 - 5 %) 0.6 Basophils % (0.0 - 2.0 %) 0.4 Absolute Granulocytes (1.4 - 6.5 /CUMM) 10.1 H Absolute Lymphocytes (1.2 - 3.4 /CUMM) 0.4 L Absolute Monocytes (0.10 - 0.60 /CUMM) 0.6 Absolute Eosinophils (0.0 - 0.7 /CUMM) 0.1 Absolute Basophils (0.0 - 0.2 /CUMM) 0 Urines Urine Color (YEL,AMB,STR) STRAW Urine Clarity (CLEAR) CLEAR Urine pH (5.0 - 8.0) 6.0 Ur Specific [place] (1.001 - 1.035) 1.010 Urine Protein (NEG,<30 MG/DL) NEG Urine Ketones (NEG) TRACE H Urine Nitrite (NEG) NEG Urine Bilirubin (NEG) NEG Urine Urobilinogen (0.1 - 1.0 EU/dl) 0.2 Ur Leukocyte Esterase (NEG) NEG Ur Microscopic EXAM NOT REQUIRED Urine Hemoglobin (NEG) NEG Urine Glucose (N MG/DL) NEG Assessment/Plan Assessment/Plan This 77 year old female with hx copd, dm, htn, is now POD#16 s/p robotic LAR with DLI for colonic polyp not ammenable to colonoscopic resection (path= benign ), re-admitted due to acute kidney injury and electrolyte imbalances related to dehydration from likely high output ileostomy tolerating clears, ?advance diet and stop ivf? spoke with nurse regarding strict measurement of ileostomy output, which needs to be recorded midline dressing changed ?continue iv unasyn for infected seroma accuchecks / ss coverage f/u labs continue lomotil 5mg TID nystatin powder for skin folds accuchecks / ss coverage hep sc - dvt ppx f/u medical recommendations ostomy teaching / review ?SNF placement as has not done well living alone with VNA care will d/w Core Measures Venous Thromboembolism VTE Risk Factors Age>40 No Mechanical VTE Prophylaxis d/t N/A MechProphylax Ordered No VTE Pharm Prophylaxis d/t NA PharmProphylax ordered
[2018-02-24 14:04] VITALS: BP 130/78
[2018-02-24 22:42] VITALS: BP 112/58
[2018-02-25 06:37] VITALS: BP 112/64
--- NOTE | 2018-02-25 07:41 | PN- General Surgery ---
See Addendum Subjective Subjective: feeling much better. candis reg diet, no n/v, no cp/sob, no lightheadness, no confusion. ambulating to bathroom Objective Vital Signs and I&Os Vital Signs Date Time Temp Pulse Resp B/P B/P Pulse O2 O2 Flow FiO2 Mean Ox Delivery Rate 02/25 637 98.0 76 18 112/64 96 Room Air 02/24 2242 98.3 72 18 112/58 98 Room Air 02/24 1404 98.1 75 18 130/78 100 Room Air 02/24 0829 Room Air Room Air Intake & Output 02/25 0000 02/24 1600 02/24 0800 02/24 0000 02/23 1600 Intake Total 300 320 245 Output Total 700 500 Balance -400 -180 245 Intake, IV 200 125 Intake, Oral 300 120 120 Output, Stool 450 Output, Urine 250 500 Patient 187 lb 190 lb 157 lb Weight Weight Bed scale Bed scale Reported by Patient Measurement Method Physical Exam: gen- nad card- s1s2 rrr pulm- +mild wheeze throughout abd- obese, soft, nt, stoma pink and viable, thickened bown stool in bag. ext-soft nt Stool out: 250cc overnight urine out: NR, not collected in hat Results Last 48 Hours of Labs: Laboratory Tests 02/25 02/24 02/24 0719 0600 0345 Chemistry Sodium (137 - 145 mmol/L) Pending 134 L Potassium (3.5 - 5.1 mmol/L) Pending 4.8 Chloride (98 - 107 mmol/L) Pending 102 Carbon Dioxide (22 - 30 mmol/L) Pending 23 Anion Gap (5 - 16) Pending 9 BUN (7 - 17 mg/dL) Pending 31 H Creatinine (0.5 - 1.0 mg/dL) Pending 0.9 Estimated GFR (>60 ml/min) > 60 BUN/Creatinine Ratio (7 - 25 %) Pending 34.4 H Phosphorus Cancelled Hematology CBC w Diff Pending NO MAN DIFF REQ WBC (4.8 - 10.8 /CUMM) Pending 6.6 RBC (4.20 - 5.40 /CUMM) Pending 3.38 L Hgb (12.0 - 16.0 G/DL) Pending 9.6 L Hct (37 - 47 %) Pending 29.4 L MCV (81.0 - 99.0 FL) Pending 87.0 MCH (27.0 - 31.0 PG) Pending 28.3 MCHC (33.0 - 37.0 G/DL) Pending 32.5 L RDW (11.5 - 14.5 %) Pending 13.7 Plt Count (130 - 400 /CUMM) Pending 415 H MPV (7.4 - 10.4 FL) Pending 6.8 L Gran % (42.2 - 75.2 %) 77.4 H Lymphocytes % (20.5 - 51.1 %) 9.7 L Monocytes % (1.7 - 9.3 %) 9.5 H Eosinophils % (0 - 5 %) 2.8 Basophils % (0.0 - 2.0 %) 0.6 Absolute Granulocytes (1.4 - 6.5 /CUMM) 5.1 Absolute Lymphocytes (1.2 - 3.4 /CUMM) 0.6 L Absolute Monocytes (0.10 - 0.60 /CUMM) 0.6 Absolute Eosinophils (0.0 - 0.7 /CUMM) 0.2 Absolute Basophils (0.0 - 0.2 /CUMM) 0 05/06 05/05 05/05 0005 2210 1325 Chemistry Sodium (137 - 145 mmol/L) 133 L Potassium (3.5 - 5.1 mmol/L) 4.7 Chloride (98 - 107 mmol/L) 99 Carbon Dioxide (22 - 30 mmol/L) 24 Anion Gap (5 - 16) 9 BUN (7 - 17 mg/dL) 34 H Creatinine (0.5 - 1.0 mg/dL) 0.9 Estimated GFR (>60 ml/min) > 60 BUN/Creatinine Ratio (7 - 25 %) 37.8 H Phosphorus (2.5 - 4.5 mg/dL) 3.2 Magnesium (1.6 - 2.3 mg/dL) 1.7 Hematology CBC w Diff NO MAN DIFF REQ WBC (4.8 - 10.8 /CUMM) 8.6 RBC (4.20 - 5.40 /CUMM) 3.65 L Hgb (12.0 - 16.0 G/DL) 10.5 L Hct (37 - 47 %) 31.8 L MCV (81.0 - 99.0 FL) 87.1 MCH (27.0 - 31.0 PG) 28.7 MCHC (33.0 - 37.0 G/DL) 33.0 RDW (11.5 - 14.5 %) 13.6 Plt Count (130 - 400 /CUMM) 482 H MPV (7.4 - 10.4 FL) 7.6 Gran % (42.2 - 75.2 %) 80.0 H Lymphocytes % (20.5 - 51.1 %) 7.1 L Monocytes % (1.7 - 9.3 %) 9.7 H Eosinophils % (0 - 5 %) 3.2 Basophils % (0.0 - 2.0 %) 0 Absolute Granulocytes (1.4 - 6.5 /CUMM) 6.9 H Absolute Lymphocytes (1.2 - 3.4 /CUMM) 0.6 L Absolute Monocytes (0.10 - 0.60 /CUMM) 0.8 H Absolute Eosinophils (0.0 - 0.7 /CUMM) 0.3 Absolute Basophils (0.0 - 0.2 /CUMM) 0 Urines Urine Osmolality (300 - 1000 MOSM/KG) 258 L 02/23 05 1325 1306 Chemistry Sodium (137 - 145 mmol/L) 125 L Potassium (3.5 - 5.1 mmol/L) 5.8 H Chloride (98 - 107 mmol/L) 89 L Carbon Dioxide (22 - 30 mmol/L) 23 Anion Gap (5 - 16) 13 BUN (7 - 17 mg/dL) 47 H Creatinine (0.5 - 1.0 mg/dL) 1.2 H Estimated GFR (>60 ml/min) 43 L BUN/Creatinine Ratio (7 - 25 %) 39.2 H Glucose (65 - 99 mg/dL) 116 H Serum Osmolality (285 - 295 MOSM/KG) 278 L Calcium (8.4 - 10.2 mg/dL) 9.2 Total Bilirubin (0.2 - 1.3 mg/dL) 0.5 AST (14 - 36 U/L) 16 ALT (9 - 52 U/L) 41 Alkaline Phosphatase (<127 U/L) 120 Troponin I (< 0.11 ng/ml) < 0.01 Total Protein (6.3 - 8.2 g/dL) 6.3 Albumin (3.5 - 5.0 g/dL) 3.6 Globulin (1.9 - 4.2 gm/dL) 2.7 Albumin/Globulin Ratio (1.1 - 2.2 %) 1.3 Hematology CBC w Diff NO MAN DIFF REQ WBC (4.8 - 10.8 /CUMM) 11.2 H RBC (4.20 - 5.40 /CUMM) 3.98 L Hgb (12.0 - 16.0 G/DL) 11.4 L Hct (37 - 47 %) 34.8 L MCV (81.0 - 99.0 FL) 87.4 MCH (27.0 - 31.0 PG) 28.8 MCHC (33.0 - 37.0 G/DL) 32.9 L RDW (11.5 - 14.5 %) 13.8 Plt Count (130 - 400 /CUMM) 631 H MPV (7.4 - 10.4 FL) 6.8 L Gran % (42.2 - 75.2 %) 90.3 H Lymphocytes % (20.5 - 51.1 %) 3.6 L Monocytes % (1.7 - 9.3 %) 5.1 Eosinophils % (0 - 5 %) 0.6 Basophils % (0.0 - 2.0 %) 0.4 Absolute Granulocytes (1.4 - 6.5 /CUMM) 10.1 H Absolute Lymphocytes (1.2 - 3.4 /CUMM) 0.4 L Absolute Monocytes (0.10 - 0.60 /CUMM) 0.6 Absolute Eosinophils (0.0 - 0.7 /CUMM) 0.1 Absolute Basophils (0.0 - 0.2 /CUMM) 0 Urines Urine Color (YEL,AMB,STR) STRAW Urine Clarity (CLEAR) CLEAR Urine pH (5.0 - 8.0) 6.0 Ur Specific [place] (1.001 - 1.035) 1.010 Urine Protein (NEG,<30 MG/DL) NEG Urine Ketones (NEG) TRACE H Urine Nitrite (NEG) NEG Urine Bilirubin (NEG) NEG Urine Urobilinogen (0.1 - 1.0 EU/dl) 0.2 Ur Leukocyte Esterase (NEG) NEG Ur Microscopic EXAM NOT REQUIRED Urine Hemoglobin (NEG) NEG Urine Glucose (N MG/DL) NEG Assessment/Plan Assessment/Plan A- HD2 with dehydration r/t high ileostomy output, with improving lytes and susie, though output volume of stool and urine unknown due to poorly recorded I&Os. P- I&Os. Discussed at length with 2 nurses. reg diet cont colestyramine, lomotil eval for str placement home meds will dw attending Core Measures Venous Thromboembolism VTE Risk Factors Age>40 No Mechanical VTE Prophylaxis d/t N/A MechProphylax Ordered No VTE Pharm Prophylaxis d/t NA PharmProphylax ordered
--- NOTE | 2018-02-25 07:51 | PN- Medicine Consult ---
Jude SAINI,[facility] 02/25/18 0750: Assessment/PlanMedical Consult Assessment/Plan Assessment: Ms. Garcia is 77-year-old female with past medical history significant for hypertension, COPD not on home oxygen, diabetes, diverticulosis, colonic polyps status post colectomy with ileostomy(02/08/2018) POD#17 presented to the ED for weakness, dehydration and surgical site infection. Assessment #1 Status post colectomy with diverting loop ileostomy(POD#17) #2 Surgical site seroma #3 Hyponatremia #4 Hyperkalemia #5 Dehydration #6 Acute kidney injury #7 Diabetes mellitus Recommendation -Continue encourage oral intake -Hyponatremia improved from 125 to 133 s/p IVF D5NS... Continue encourage oral intake and follow-up BMP -Hyperkalemia resolved -Acute kidney injury resolved -Ileostomy bag output improved (amount and consistency) -Plans to discharge patient to [facility] today. Patient can have repeat BEP in 2-3 days. Continue to hold losartan given recent hyperkalemia--patient can be started on amlodipine 5 mg daily for blood pressure control, to follow with PCP for blood pressure control -Ostomy teaching -Antidiarrhea per surgical team -Diet regular -DVT prophylaxis Alps all times Will discuss with the attending Plan: As above Subjective Subjective: Patient was seen and examined this morning, vital signs are stable, blood pressure is controlled off medication. Patient reported feeling much better, oral intake improved. Patient denied any abdominal pain, nausea or vomiting. Review of Systems Constitutional: Reports: see HPI. Objective Last 24 Hrs of Vital Signs/I&O Vital Signs Date Time Temp Pulse Resp B/P B/P Pulse O2 O2 Flow FiO2 Mean Ox Delivery Rate 02/25 0637 98.0 76 18 112/64 96 Room Air 02/24 2242 98.3 72 18 112/58 98 Room Air 02/24 1404 98.1 75 18 130/78 100 Room Air Intake & Output 02/25 1600 02/25 0800 02/25 0000 Intake Total 240 400 Output Total 625 Balance -385 400 Intake, Oral 240 400 Output, Stool 250 Output, Urine 375 Patient 84.822 kg Weight Weight Bed scale Measurement Method Physical Exam General Appearance: well developed/nourished, no apparent distress, alert, awake Head: atraumatic, normal appearance Ears, Nose, Throat: normal pharynx, normal ENT inspection, hearing grossly normal Neck: normal inspection, supple, full range of motion Cardiovascular: regular rate/rhythm Respiratory: normal breath sounds, chest non-tender, no respiratory distress Abdomen: normal bowel sounds, soft, non-tender, central surgical wound, mild erythema, no discharge Extremities: normal inspection, normal capillary refill, normal range of motion, no edema Neurologic/Psychiatric: no motor/sensory deficits, awake, alert, oriented x 3 Current Medications: Current Medications Sig/Cirilo Start time Last Medication Dose Route Stop Time Status Admin Acetaminophen 650 MG .STK-MED ONE 02/25 2223 DC PO 02/25 2224 Acetaminophen 650 MG .STK-MED ONE 02/25 1018 DC PO 02/25 1019 Acetaminophen 650 MG Q6PRN PRN 02/23 2030 AC 02/25 PO 2226 Albuterol Sulfate 3 ML Q4H PRN 02/23 2045 AC INH Budesonide/ 2 PUF BID 02/23 2100 AC 02/26 Formoterol Fumarate INH 0748 Cholestyramine Resin 1 PAC BID 02/24 1249 AC 02/26 PO 0749 Diphenoxylate HCl/ 5 MG TID 02/23 2100 AC 02/26 Atropine PO 0748 Heparin Sodium 5,000 UNIT Q8 02/23 2200 AC 02/26 (Porcine) SC 0603 Insulin Aspart 0 TIDAC 02/24 0800 AC 02/25 SC 1741 Insulin Aspart 0 AT BEDTIME 02/23 2100 AC SC Morphine Sulfate 2 MG Q2P PRN 02/23 2030 AC IV Nystatin 1 GENA TID 02/23 2345 AC 02/26 TOP 0748 Ondansetron HCl 4 MG Q6-PRN PRN 02/23 2030 AC IV Patient Medication 1 ED ONE ONE 02/25 1600 DC 02/25 Teaching ED 02/25 1601 1600 Tramadol HCl 50 MG ONCE ONE 02/25 1500 DC 02/25 PO 02/25 1501 1454 Results Last 24 Hrs Lab/Cullen Results: Laboratory Tests 02/26/18 0637: Sodium Pending, Potassium Pending, Chloride Pending, Carbon Dioxide Pending, Anion Gap Pending, BUN Pending, Creatinine Pending, BUN/Creatinine Ratio Pending , CBC w Diff NO MAN DIFF REQ, RBC 3.36 L, MCV 86.5, MCH 28.8, MCHC 33.2, RDW 14.0, MPV 6.8 L, Gran % 68.6, Lymphocytes % 15.5 L, Monocytes % 8.0, Eosinophils % 6.9 H, Basophils % 1.0, Absolute Granulocytes 4.8, Absolute Lymphocytes 1.1 L, Absolute Monocytes 0.6, Absolute Eosinophils 0.5, Absolute Basophils 0.1 Nick Tobias MD 02/25/181926: Attending MD Review Statement Attending Sign Off Attending Cosign Statement: I have: examined this patient, reviewed al EMR data, personally reviewd images, discussd w/resident/PA/GRAPPLE SKIDDER OPERATOR, discussed mgmt plan w/francisco, discussed mgmt plan w/CM, discussed mgmt plan w/pt, agreed w/resident/PA/GRAPPLE SKIDDER OPERATOR, amended to note. Other Findings: The patient was seen and discussed with house staff. The patient will have ostomy teaching and probable discharge home tomorrow pending clinical course. Agree with plan of care as outlined.
[2018-02-25 08:04] LABS: ABSOLUTE BASOPHIL COUNT 0.1 /CUMM (0.0-0.2); ABSOLUTE EOSINOPHIL COUNT 0.3 /CUMM (0.0-0.7); ABSOLUTE GRANULOCYTE CT 4.4 /CUMM (1.4-6.5); ABSOLUTE LYMPH COUNT 0.7 /CUMM (1.2-3.4); ABSOLUTE MONOCYTE COUNT 0.4 /CUMM (0.10-0.60); EOSINOPHIL % 5.6 % (0-5); GRANULOCYTE % 74.2 % (42.2-75.2); HEMATOCRIT 28.3 % (37-47); MEAN CORPUSCULAR HGB 29.1 PG (27.0-31.0); MEAN CORPUSCULAR HGB CONC 33.6 G/DL (33.0-37.0); MEAN CORPUSCULAR VOLUME 86.6 FL (81.0-99.0); MEAN PLATELET VOLUME 6.7 FL (7.4-10.4); PLATELET COUNT 402 /CUMM (130-400); RED BLOOD CELL CT 3.26 /CUMM (4.20-5.40); WHITE BLOOD CELL COUNT 5.9 /CUMM (4.8-10.8)
[2018-02-25 15:09] VITALS: BP 122/58
[2018-02-25 23:38] VITALS: BP 126/58
[2018-02-26 07:04] VITALS: BP 122/62
[2018-02-26 07:52] LABS: ABSOLUTE BASOPHIL COUNT 0.1 /CUMM (0.0-0.2); ABSOLUTE EOSINOPHIL COUNT 0.5 /CUMM (0.0-0.7); ABSOLUTE GRANULOCYTE CT 4.8 /CUMM (1.4-6.5); ABSOLUTE LYMPH COUNT 1.1 /CUMM (1.2-3.4); ABSOLUTE MONOCYTE COUNT 0.6 /CUMM (0.10-0.60); EOSINOPHIL % 6.9 % (0-5); GRANULOCYTE % 68.6 % (42.2-75.2); MEAN CORPUSCULAR HGB 28.8 PG (27.0-31.0); MEAN CORPUSCULAR HGB CONC 33.2 G/DL (33.0-37.0); MEAN CORPUSCULAR VOLUME 86.5 FL (81.0-99.0); MEAN PLATELET VOLUME 6.8 FL (7.4-10.4); PLATELET COUNT 437 /CUMM (130-400); RED BLOOD CELL CT 3.36 /CUMM (4.20-5.40)
--- NOTE | 2018-02-26 08:08 | Surg Short-stay <48hrs Dis Sum ---
Visit Information Visit Dates Admission Date: 02/23/18 Discharge Date: 02/27/2018 Surgical Short Stay DC Summary Admission Diagnosis: Dehydration from high output ileostomy, electrolyte abnormalites including hyperkalemia and hyponatremia Final Diagnosis: same as above, s/p resolution of dehydration and electrolyte disturbances with addition of lomotil and cholestyramine to slow output Procedure(s): conservative treatment, iv fluids and electrolyte replacement Summary/Significant Findings: Presented to the ED on 02/23/18 with dehydration and electrolyte disturbances, secondary to high output from her new ileostomy. She had an electively scheduled robotic low anterior resection, diverting loop ileostomy by on 02/08/18 for a rectal polyp (in setting of severe diverticular disease). With the addition of lomotil and cholestyramine, her ileostomy output has significantly slowed. We have corrected her electrolyte imbalances, which have been checked daily while inpatient. Local wound care to her midline incision is being done daily with bacitracin and dry guaze dressings. Ileostomy teaching was reviewed with our specialized stoma nurse. She will be going home with vna services. Condition at Discharge: stable Discharge Disposition: home health services Discharge instructions provided to patient/family: Yes Post discharge follow-up plan: one week follow up with Copies to: Antoni SAINI,Nicolette
--- NOTE | 2018-02-26 08:08 | PN- Medicine Consult ---
Jude SAINI,[facility] 02/26/18 0807: Assessment/PlanMedical Consult Assessment/Plan Assessment: Ms. Garcia is 77-year-old female with past medical history significant for hypertension, COPD not on home oxygen, diabetes, diverticulosis, colonic polyps status post colectomy with ileostomy(02/08/2018) POD#17 presented to the ED for weakness, dehydration and surgical site infection. Assessment #1 Status post colectomy with diverting loop ileostomy(POD#18) #2 Surgical site seroma #3 Hyponatremia resolved #4 Hyperkalemia resolved #5 Dehydration resolved #6 Acute kidney injury resolved #7 Diabetes mellitus Recommendation -Continue encourage oral intake -Ileostomy bag output improved (amount and consistency) -Plans to discharge today. -Continue to hold losartan given recent hyperkalemia--patient can be started on amlodipine 5 mg daily for blood pressure control, to follow with PCP for blood pressure control -Ostomy teaching -Antidiarrhea per surgical team -Diet regular -DVT prophylaxis Alps all times Will discuss with the attending Plan: As above Subjective Subjective: Patient was seen and examined this morning, vital signs are stable, she denied any weakness, abdominal pain, nausea or vomiting. Good oral intake. No overnight events reported by the patient. Review of Systems Constitutional: Reports: see HPI. Objective Last 24 Hrs of Vital Signs/I&O Vital Signs Date Time Temp Pulse Resp B/P B/P Pulse O2 O2 Flow FiO2 Mean Ox Delivery Rate 02/26 0704 97.8 83 20 122/62 97 Room Air 02/25 2338 98.3 84 20 126/58 95 02/25 1509 98.1 89 18 122/58 100 Room Air Intake & Output 02/26 1600 08 0800 05 0000 Intake Total 240 120 Output Total 550 300 Balance -310 -180 Intake, Oral 240 120 Number 1 Bowel Movements Output, Stool 175 150 Output, Urine 375 150 Patient 84.453 kg Weight Physical Exam General Appearance: well developed/nourished, no apparent distress, alert, awake Head: atraumatic, normal appearance Ears, Nose, Throat: normal pharynx, normal ENT inspection, hearing grossly normal Neck: normal inspection, supple, full range of motion Cardiovascular: regular rate/rhythm Respiratory: normal breath sounds, chest non-tender, no respiratory distress Abdomen: normal bowel sounds, soft, non-tender, midline surgical incision with mild erythema. No bleeding or discharge Extremities: normal inspection, normal capillary refill, normal range of motion, no edema Neurologic/Psychiatric: no motor/sensory deficits, awake, alert, oriented x 3 Current Medications: Current Medications Sig/Cirilo Start time Last Medication Dose Route Stop Time Status Admin Acetaminophen 650 MG .STK-MED ONE 02/27 922 DC PO 02/27 0923 Acetaminophen 650 MG Q6PRN PRN 02/23 2030 DCD 02/27 PO 0923 Albuterol Sulfate 3 ML Q4H PRN 02/23 2045 DC INH Budesonide/ 2 PUF BID 02/23 2100 DCD 02/27 Formoterol Fumarate INH 0852 Cholestyramine Resin 1 PAC BID 02/24 1249 DCD 02/27 PO 0852 Diphenoxylate HCl/ 5 MG TID 02/23 2100 DCD 02/27 Atropine PO 0852 Heparin Sodium 5,000 UNIT Q8 02/23 2200 DCD 02/27 (Porcine) SC 0605 Insulin Aspart 0 TIDAC 02/24 0800 DCD 02/26 SC 1346 Insulin Aspart 0 AT BEDTIME 02/23 2100 DCD SC Morphine Sulfate 2 MG Q2P PRN 02/23 2030 DCD IV Nystatin 1 GENA TID 02/23 2345 DCD 02/27 TOP 0858 Ondansetron HCl 4 MG Q6-PRN PRN 02/23 2030 DCD IV Results Last 24 Hrs Lab/Cullen Results: 111 Nick Tobias MD 02/26/18 1714: Attending MD Review Statement Attending Sign Off Attending Cosign Statement: I have: examined this patient, reviewed al EMR data, discussd w/resident/PA/ SUPERVISOR SUNGLASSES, discussed mgmt plan w/francisco, discussed mgmt plan w/pt, agreed w/resident/PA/SUPERVISOR SUNGLASSES , amended to note. Other Findings: The patient was seen and discussed with resident. Some anxiety regarding ostomy care and was seen by ostomy nurse again today. Plan is for discharge home with services.
--- NOTE | 2018-02-26 08:11 | Patient Discharge Instructions ---
Discharge Instructions General Discharge Information You were seen/treated for: dehydration, high ileostomy output, electrolyte abnormalities (hyperkalemia and hyponatremia) which resolved with iv fluids and electrolyte replacement You had these procedures: conservative treatment local wound care ileostomy review / teaching Watch for these problems: fever>101.3, increased pain, redness/swelling/drainage, drastic changes in ileostomy output, dizziness, shortness of breath, chest pains Other wound care: ileostomy care, to continue with visiting nurse bacitracin and dry guaze dressing to midline, daily Diet Continue normal diet: Yes Recommended Diet: Regular Activity Full Activity/No Limits: No Activity Self Limited: Yes Pounds, do NOT lift more than: 10 Other activity limits: no heavy lifting. no strenuous activity. Acute Coronary Syndrome Inclusion Criteria At DC or during hospital stay patient has or had the following: ACS DIAGNOSIS No Discharge Core Measures Meds if any: Prescribed or Continued at Discharge Meds if any: NOT Prescribed or Continued at Discharge Congestive Heart Failure Inclusion Criteria At DC or during hospital stay patient has or had the following: CHF DIAGNOSIS No Discharge Core Measures Meds if any: Prescribed or Continued at Discharge Meds if any: NOT Prescribed or Continued at Discharge Cerebrovascular accident Inclusion Criteria At DC or during hospital stay patient has or had the following: CVA/TIA Diagnosis No Discharge Core Measures Meds if any: Prescribed or Continued at Discharge Meds if any: NOT Prescribed or Continued at Discharge Venous thromboembolism Inclusion Criteria VTE Diagnosis No VTE Type NONE VTE Confirmed by (Test) NONE Discharge Core Measures - Per Current guidelines, there needs to be overlap - treatment for the first 5 days of Warfarin therapy. - If discharged on Warfarin prior to 5 days of - overlap therapy, the patient will need to be - assessed for post discharge needs including - *Post discharge parental anticoagulation - *Warfarin and/or parental anticoagulation education - *Follow up date to check INR post discharge At least 5 days overlap therapy as Inpatient No Meds if any: Prescribed or Continued at Discharge Note: Overlap Therapy is Warfarin and Anticoagulant Meds if any: NOT Prescribed or Continued at Discharge
[2018-02-26] MEDS ORDERED: DIPHENOXYLATE-1 EACH PO (08:14)
[2018-02-26] MEDS ORDERED: NYSTATIN15 G1 TOP (08:14)
[2018-02-26] MEDS ORDERED: CHOLESTYRAMINE L4 GM PO (08:14)
--- NOTE | 2018-02-26 13:33 | PN- General Surgery ---
Surgical Brief Attending Note Brief Attending Note: Patient tolerating diet Stoma functioning well reducing soft loose brown stool Acceptable stoma output Dehydration and electrolyte disturbances resolved Acute renal failure resolved DC home on aggressive antidiarrheal regimen Patient will follow-up with me next week in office
[2018-02-26 14:39] VITALS: BP 136/78
[2018-02-26 23:16] VITALS: BP 140/64
[2018-02-27 07:02] VITALS: BP 134/78
--- NOTE | 2018-02-27 08:11 | PN- General Surgery ---
Surgical Brief Attending Note Brief Attending Note: Patient continues to feel better every day Patient having good GI function and tolerating diet Stoma is functioning well patient is becoming independent with stoma appliance Discharge patient home today Continue aggressive anrtidiarrhea regimen Follow-up in my office next week
--- NOTE | 2018-02-27 08:18 | PN- Medicine Consult ---
See Addendum Assessment/PlanMedical Consult Assessment/Plan Assessment: This is 77-year-old female with past medical history significant for hypertension, COPD not on home oxygen, diabetes, diverticulosis, colonic polyps status post colectomy with ileostomy(02/08/2018) POD#19 presented to the ED for weakness, dehydration and surgical site infection. Problem list #Status post colectomy with diverting loop ileostomy(POD#19) #Surgical site seroma #Hyponatremia resolved #Hyperkalemia resolved #Dehydration resolved #Acute kidney injury resolved #Diabetes mellitus Plan: Recommendation -Continue encourage oral intake -Ileostomy bag output improved (amount and consistency) -Continue to hold losartan given recent hyperkalemia--patient can be started on amlodipine 5 mg daily for blood pressure control, to follow with PCP for blood pressure control -If ends up staying monitor K levels -Ostomy teaching -Antidiarrhea and other management per surgical team -Diet regular -DVT prophylaxis Alps all times Problem List: 1. Hyponatremia 2. Dehydration 3. Ileostomy status Subjective Subjective: The patient was seen and examined this morning. She offers no complaints. Has been tolerating diet well. Denies any headache, n/v, dizziness/lightheadedness, abdominal pain. No overnight events. VSS. Review of Systems Constitutional: Denies: see HPI, chills, diaphoresis, fever, malaise, weakness, unexplained weight loss. Objective Last 24 Hrs of Vital Signs/I&O Vital Signs Date Time Temp Pulse Resp B/P B/P Pulse O2 O2 Flow FiO2 Mean Ox Delivery Rate 02/27 0702 97.9 84 20 134/78 96 Room Air 02/26 2316 98.8 89 20 140/64 98 Room Air 02/26 1439 98.7 86 20 136/78 97 Room Air Intake & Output 02/27 1600 02/27 0800 02/27 0000 Intake Total 120 120 Output Total 700 450 Balance -580 -330 Intake, Oral 120 120 Output, Stool 300 450 Output, Urine 400 Patient 184 lb Weight Physical Exam General Appearance: no apparent distress, alert, awake Other Physical Findings: Head: atraumatic, normal appearance Ears, Nose, Throat: normal pharynx, normal ENT inspection, hearing grossly normal Neck: normal inspection, supple, full range of motion Cardiovascular: regular rate/rhythm Respiratory: normal breath sounds, chest non-tender, no respiratory distress Abdomen: normal bowel sounds, soft, non-tender, midline surgical incision/mild erythema. No bleeding or discharge Extremities: normal inspection, normal capillary refill, normal range of motion, no edema Neurologic/Psychiatric: no motor/sensory deficits, awake, alert, oriented x 3 Current Medications: Current Medications Sig/Cirilo Start time Last Medication Dose Route Stop Time Status Admin Acetaminophen 650 MG Q6PRN PRN 02/23 2030 AC 02/25 PO 2226 Albuterol Sulfate 3 ML Q4H PRN 02/23 204 AC INH Budesonide/ 2 PUF BID 02/23 2100 AC 02/26 Formoterol Fumarate INH 2146 Cholestyramine Resin 1 PAC BID 02/24 1249 AC 02/26 PO 2147 Diphenoxylate HCl/ 5 MG TID 02/23 2100 AC 02/26 Atropine PO 215 Heparin Sodium 5,000 UNIT Q8 02/23 2200 AC 02/27 (Porcine) SC 0605 Insulin Aspart 0 TIDAC 02/24 0800 AC 02/26 SC 1346 Insulin Aspart 0 AT BEDTIME 02/23 2100 AC SC Morphine Sulfate 2 MG Q2P PRN 02/23 2030 AC IV Nystatin 1 GENA TID 02/23 2345 AC 02/26 TOP 2144 Ondansetron HCl 4 MG Q6-PRN PRN 02/23 2030 AC IV Patient Medication 1 ED ONE ONE 02/26 1745 AR Teaching ED 02/26 1746 Results Last 24 Hrs Lab/[facility] Results: Laboratory Tests 02/26 0637 Chemistry Sodium (137 - 145 mmol/L) 135 L Potassium (3.5 - 5.1 mmol/L) 4.9 Chloride (98 - 107 mmol/L) 101 Carbon Dioxide (22 - 30 mmol/L) 24 Anion Gap (5 - 16) 11 BUN (7 - 17 mg/dL) 18 H Creatinine (0.5 - 1.0 mg/dL) 0.9 Estimated GFR (>60 ml/min) > 60 BUN/Creatinine Ratio (7 - 25 %) 20.0 Hematology CBC w Diff NO MAN DIFF REQ WBC (4.8 - 10.8 /CUMM) 7.0 RBC (4.20 - 5.40 /CUMM) 3.36 L Hgb (12.0 - 16.0 G/DL) 9.6 L Hct (37 - 47 %) 29.0 L MCV (81.0 - 99.0 FL) 86.5 MCH (27.0 - 31.0 PG) 28.8 MCHC (33.0 - 37.0 G/DL) 33.2 RDW (11.5 - 14.5 %) 14.0 Plt Count (130 - 400 /CUMM) 437 H MPV (7.4 - 10.4 FL) 6.8 L Gran % (42.2 - 75.2 %) 68.6 Lymphocytes % (20.5 - 51.1 %) 15.5 L Monocytes % (1.7 - 9.3 %) 8.0 Eosinophils % (0 - 5 %) 6.9 H Basophils % (0.0 - 2.0 %) 1.0 Absolute Granulocytes (1.4 - 6.5 /CUMM) 4.8 Absolute Lymphocytes (1.2 - 3.4 /CUMM) 1.1 L Absolute Monocytes (0.10 - 0.60 /CUMM) 0.6 Absolute Eosinophils (0.0 - 0.7 /CUMM) 0.5 Absolute Basophils (0.0 - 0.2 /CUMM) 0.1
== END 2018-02-27 13:20 | disposition home health service (06) | DRG 683 ==
LOC: DELPENDDIS → ERH 11:52 → ERHI 15:19 → 1NO 15:19 → ENRESERV 20:39 → ENTRNSPT 21:11 → EDTRNSPT 21:37 → EDTRNSPTSTS 21:37 → 1NO 21:52 → CMPTRNSPT 22:03 → ENPENDDIS 02-26 07:57 → 1NO 02-27 13:20
PROVIDERS: Emergency Medicine; Physician Assistant; Physician Assistant Surgical
DX: N17.9 Acute kidney failure, unspecified (principal); K91.872 Postprocedural seroma of a digestive system organ or structure following a digestive system procedure; E87.5 Hyperkalemia; E11.9 Type 2 diabetes mellitus without complications; K94.19 Other complications of enterostomy; E87.1 Hypo-osmolality and hyponatremia; E86.0 Dehydration; J44.9 Chronic obstructive pulmonary disease, unspecified; R19.7 Diarrhea, unspecified; Z79.84 Long term (current) use of oral hypoglycemic drugs; Z79.891 Long term (current) use of opiate analgesic; Z79.51 Long term (current) use of inhaled steroids; Z93.4 Other artificial openings of gastrointestinal tract status; Z90.49 Acquired absence of other specified parts of digestive tract
CPT/HCPCS: 1NSP; 36415; 36592; 81003; 82436; 93005; 93010; 96374; 96375; 99291; J0610; J0713; J1644; J3370; J3490; J7042

== ENCOUNTER 2018-04-13 09:49 | Inpatient (IN) | payer OTHER ==
[~2018-04-13] VITALS: Ht 149.9 cm; Wt 75.3 kg
[~2018-04-13 09:49] MED LIST changes: +ADVAIR 250-501 EACH INH; +ALBUTEROL2.5 MG/3 M INH/SOL; +AMOX-CLAV 500-1 EACH PO; +CHOLESTYRAMINE L4 GM PO; +DIPHENOXYLATE-1 EACH PO; +LOMOTIL 2.5-0.1 EACH PO; +NYSTATIN15 G1 TOP
--- NOTE | 2018-04-13 09:57 | ED GENERAL ADULT ---
History of Present Illness General Chief Complaint: General Adult Stated Complaint: STROKE? 04/11 Source: patient, family Exam Limitations: no limitations Vital Signs & Intake/Output Vital Signs & Intake/Output Vital Signs Date Time Temp Pulse Resp B/P B/P Pulse O2 O2 Flow FiO2 Mean Ox Delivery Rate 04/13 1204 98.2 86 18 117/55 95 Room Air 04/13 1051 97.0 88 134/78 04/13 1040 92 18 148/72 99 Room Air Room Air 04/13 1027 99 Room Air Room Air 04/13 0959 96.0 94 18 112/68 94 Allergies Coded Allergies: cyclobenzaprine (From FLEXERIL) (INCREASED PAIN 02/07/18) Reconcile Medications Albuterol Sulfate 2.5 MG/3 ML (0.083 %) VIAL.NEB 1 Vial INH/YOU Q4P PRN SOB ( Reported) Atorvastatin Calcium 10 MG TABLET 1 TAB PO DAILY CHOLESTEROL (Reported) Cholestyramine/Aspartame (Cholestyramine Light Packet) 4 GRAM POWD.PACK 1 PAC PO BID PRN ileostomy output as directed by , to help slow ileostomy output Cyanocobalamin (Vitamin B-12) 1,000 MCG TABLET 1 TAB PO DAILY SUPPLEMENT ( Reported) Diphenoxylate HCl/Atropine (Diphenoxylate-Atrop 2.5-0.025) 2.5 MG-0.025 MG TABLET 5 MG PO TID ileostomy output as per , for high ileostomy output Fluticasone/Salmeterol (Advair 250-50 Diskus) 250 MCG-50 MCG/DOSE BLST.W.DEV 1 PUF INH BID SOB (Reported) Glipizide 5 MG TABLET 1 TAB PO DAILY DM (Reported) Losartan (Cozaar) 100 MG TABLET 1 TAB PO DAILY HTN (Reported) Magnesium Oxide (Magnesium) 400 MG CAPSULE 1 CAP PO BID LOW MAGNESIUM Metformin HCl 500 MG TABLET 1 TAB PO DAILY DM (Reported) Nystatin 100,000 UNIT/GRAM CREAM..G. 1 GENA TOP TID abdominal folds as directed Vit C/Curtis AC/Lut/Copper/Znox (Preservision Lutein Softgel) 226-200-5 CAPSULE 2 TAB SUPPLEMENT (Reported) Triage Nurses Notes Reviewed? yes Onset: Abrupt Duration: day(s): Timing: recent history HPI: 04/13/18 78-year-old female presents to the emergency department status post fall. She says she fell on Sunday evening and was unable to get up. She says she woke up on the floor. She was unable to walk and was having trouble speaking. Currently she denies any pain or symptoms.. She says over time she was able to recover and then accessed the phone to call for help. She said she was lying on the floor for over 15 hours. She denies chest pain shortness of breath headache or other complaints. Past History Travel History Traveled to [place] past 21 day No Medical History Any Pertinent Medical History? see below for history Cardiovascular: hypertension Respiratory: COPD Gastrointestinal: ileostomy status colonic polyp Renal: NONE Musculoskeletal: NONE Endocrine: diabetes Blood Disorders: NONE History of MRSA: No History of VRE: No History of CDIFF: No Surgical History Surgical History: breast biopsy, cholecystectomy, hip replacement, 02/08/2018: robotic LAR with DLI for unresectable sigmoid polyp (benign) Psychosocial History What is your primary language [place] Citizen Family History Hx Contributory? No Review of Systems Review of Systems Constitutional: Denies: fever. EENTM: Denies: visual changes. Respiratory: Denies: short of breath. Cardiovascular: Denies: chest pain. GI: Denies: abdominal pain (ILEOSTOMY). Genitourinary: Reports: no symptoms. Musculoskeletal: Reports: no symptoms. Skin: Reports: no symptoms. Neurological/Psychological: Reports: see HPI. Hematologic/Endocrine: Reports: no symptoms. Immunologic/Allergic: Reports: no symptoms. Physical Exam Physical Exam General Appearance: well developed/nourished, alert, awake, anxious Head: atraumatic, normal appearance Eyes: Bilateral: normal appearance, PERRL, EOMI. Ears, Nose, Throat: normal pharynx, normal ENT inspection, hearing grossly normal Neck: normal inspection, supple, full range of motion Respiratory: normal breath sounds, chest non-tender, no respiratory distress Cardiovascular: regular rate/rhythm Peripheral Pulses: 4+ radial (R), 4+ radial (L) Gastrointestinal: soft, non-tender (ILEOSTOMY) Back: normal inspection, normal range of motion Extremities: no edema Neurologic/Psych: no motor/sensory deficits, awake, alert, oriented x 3 Skin: intact, normal color, warm/dry Core Measures ACS in differential dx? No CVA/TIA Diagnosis: No Sepsis Present: No Sepsis Focused Exam Completed? No Progress Differential Diagnoses I considered the following diagnoses in my evaluation of the patient: [ Dysrhythmia, TIA, anemia, renal failure, sepsis] Plan of Care: Orders Procedure Date/time Status Heart Healthy Diet 04/13 D Active Intake & Output 04/13 1228 Active ED Holding Orders 04/13 1225 Active Admit to inpatient 04/13 1225 Active Vital Signs 04/13 1225 Active Code Status 04/13 1225 Active Patient Data 04/13 1221 Active TROPONIN LEVEL 04/13 1014 Complete LYME TITRE 04/13 1014 Active COMPREHENSIVE METABOLIC PANEL 04/13 1014 Complete CREATINE PHOSPHOKINASE 04/13 1014 Complete CBC WITHOUT DIFFERENTIAL 04/13 1014 Complete EKG 04/13 1002 Active Current Medications Sig/Cirilo Start time Last Medication Dose Stop Time Status Admin Sodium Chloride 1,000 ML BOLUS ONE 04/13 1215 AC 04/13 (Normal Saline 0.9%) 04/13 1314 1215 Laboratory Tests 04/13/18 1038: Anion Gap 18 H, Estimated GFR 11 L, BUN/Creatinine Ratio 21.0, Glucose 99, Calcium 9.5, Total Bilirubin 0.5, AST 19, ALT 27, Alkaline Phosphatase 106, Creatine Kinase 80, Troponin I 0.02, Total Protein 6.4, Albumin 3.8, Globulin 2.6, Albumin/Globulin Ratio 1.5, CBC w Diff MAN DIFF ORDERED, RBC 4.44, MCV 87.4 , MCH 28.6, MCHC 32.7 L, RDW 15.6 H, MPV 7.9, Gran % 88.8 H, Lymphocytes % 4.2 L, Monocytes % 6.0, Eosinophils % 0.7, Basophils % 0.3, Absolute Granulocytes 6.9 H, Absolute Lymphocytes 0.3 L, Absolute Monocytes 0.5, Absolute Eosinophils 0.1, Absolute Basophils 0, Platelet Estimate VERIFIED BY SMEAR, Anisocytosis 1+, Lyme Disease Antibody Pending Initial ED EKG: NSR, no ST T wave changes Prior EKG: unchanged Departure Departure Disposition: STILL A PATIENT Condition: Stable Clinical Impression Primary Impression: Syncope Secondary Impressions: ANTHONY (acute kidney injury) Referrals: Nicolette Corrales MD (PCP/Family) Departure Forms: Customer Survey General Discharge Information Admission Note Spoke With: Marsha Joshua MD Documentation of Exam: Documentation of any treatments & extenuating circumstances including Concerns Regarding Discharge (functional status, medication knowledge or non-compliance, living conditions, etc.) that warrant an admission rather than observation: [The patient needs admission for IV fluids, renal ultrasound, telemetry monitoring, consider neurology and nephrology consultations] Critical Care Note Critical Care Note Critical Care Time: 30-74 min
[2018-04-13 11:04] LABS: ABSOLUTE BASOPHIL COUNT 0 /CUMM (0.0-0.2); ABSOLUTE EOSINOPHIL COUNT 0.1 /CUMM (0.0-0.7); ABSOLUTE GRANULOCYTE CT 6.9 /CUMM (1.4-6.5); ABSOLUTE LYMPH COUNT 0.3 /CUMM (1.2-3.4); ABSOLUTE MONOCYTE COUNT 0.5 /CUMM (0.10-0.60); BASOPHIL % 0.3 % (0.0-2.0); EOSINOPHIL % 0.7 % (0-5); GRANULOCYTE % 88.8 % (42.2-75.2); HEMATOCRIT 38.8 % (37-47); MEAN CORPUSCULAR HGB 28.6 PG (27.0-31.0); MEAN CORPUSCULAR HGB CONC 32.7 G/DL (33.0-37.0); MEAN CORPUSCULAR VOLUME 87.4 FL (81.0-99.0); MEAN PLATELET VOLUME 7.9 FL (7.4-10.4); PLATELET COUNT 252 /CUMM (130-400); RBC DISTRIBUTION WIDTH 15.6 % (11.5-14.5); RED BLOOD CELL CT 4.44 /CUMM (4.20-5.40); WHITE BLOOD CELL COUNT 7.8 /CUMM (4.8-10.8)
--- NOTE | 2018-04-13 11:04 | CT SCAN REPORT ---
EXAMINATION: CT HEAD WITHOUT CONTRAST CLINICAL INFORMATION: Syncope and slurred speech. COMPARISON: Head CT 02/10/2018. TECHNIQUE: Contiguous axial imaging was performed from the skull base to vertex without intravenous administration of contrast. FINDINGS: There is no intracranial hemorrhage, hydrocephalus, extra-axial surface collection, midline shift, or other herniation pattern. Tucker to white matter differentiation is diffusely maintained without evidence of an evolved acute territorial infarct. The basilar cisterns are preserved. No significant soft tissue abnormality. No acute osseous abnormality. The paranasal sinuses and the mastoid air cells are well-aerated. Mild mucosal thickening within the right ethmoid air cells. IMPRESSION: No acute intracranial abnormality.
[2018-04-13] MEDS ORDERED: B-1100 MG PO (13:13)
[2018-04-13] MEDS ORDERED: ACETAMINOPHEN500 M4 PO (13:14)
[2018-04-13] MEDS ORDERED: VITAMIN E100 UNI2 PO (13:14)
[2018-04-13] MEDS ORDERED: VITAMIN D250000 UNIT PO (13:14)
[2018-04-13] MEDS ORDERED: FERROUS SULFAT325 M3 PO (13:15)
[2018-04-13] MEDS ORDERED: HYDROCHLOROTH12.5 M2 PO (13:17)
--- NOTE | 2018-04-13 13:24 | History & Physical ---
Jude SAINI,[facility] 04/13/18 1323: General Information and HPI MD Statement: I have seen and personally examined DAY LOMAS and documented this H&P. The patient is a 78 year old F who presented with a patient stated chief complaint of [fall]. Source of Information: patient, family, old records Exam Limitations: no limitations History of Present Illness: Day is a 78 year old female with past medical history significant for hypertension, hyperlipidemia, COPD not on home oxygen, diverticulosis, colonic polyps status post colectomy with ileostomy in January 2018 who presented to ED after a fall and neurological changes around 24 ago resolved. History was obtained from the patient and her daughter. Last time she was seen in her regular state of health was on Sunday when her doctor took her to Dr. Moore' s appointment. On 5 PM the daughter spoke with her over the phone had a coherent conversation. Patient wasn't answering phone calls for night and Sunday. Patient reported that on she was sitting on the couch and seemed like trying to reach to the phone on the table across the living room but somehow she found herself on the floor on her back, with contracted arms and legs and slurred speech, patient found herself soaked with urine and watery stool from the ileostomy however denied any vomiting. Patient denied any prodormal symptoms. Patient was alert and oriented to herself and place when she woke up on the floor, she tried to wiggle around to go to the tea table, took her denture out and put a bag on the ileostomy opening them went to the bathroom and back to the couch. The time frame is not clear. Around 5 AM this morning patient called her daughter asking for help. Upon daughter arrival patient was sitting on the couch watching TV has no symptoms whatsoever looked as normal as she used to be. She denied any prior history of similar symptoms. Patient didn't have any by mouth intake since . Per daughter, patient has decreased by mouth intake over the last couple of days because of nausea and vomiting from the smell of her ileostomy bag. And tried to eat as much as she can but continued to feel weak and lethargic. Patient had a stress test earlier this year prior to her colonoscopy and was within normal pharmacological stress test. Allergies/Medications Allergies: Coded Allergies: cyclobenzaprine (From FLEXERIL) (INCREASED PAIN 02/07/18) Past History Travel History Traveled to [place] past 21 day No Medical History Cardiovascular: hypertension Respiratory: COPD Gastrointestinal: ileostomy status colonic polyp Renal: NONE Musculoskeletal: NONE Endocrine: diabetes Blood Disorders: NONE History of MRSA: No History of VRE: No History of CDIFF: No Surgical History Surgical History: breast biopsy, cholecystectomy, hip replacement, 02/08/2018: robotic LAR with DLI for unresectable sigmoid polyp (benign) Past Family/Social History Psychosocial History Where do you live? Home Who Do You Live With? self Services at Home: None Primary Language: Slovak ETOH Use: denies use Illicit Drug Use: denies illicit drug use Functional Ability ADLs Independent: dressing, eating, toileting, bathing. Ambulation: independent Review of Systems Review of Systems Constitutional: Denies: chills, fever, malaise. EENTM: Denies: blurred vision, nasal pain. Cardiovascular: Denies: chest pain, orthopena, palpitations, peripheral edema, syncope. Respiratory: Denies: cough, short of breath, sputum production, stridor, wheezing. GI: Reports: nausea, vomiting. Denies: abdominal pain, bloating. Genitourinary: Denies: dysuria, frequency, hematuria. Musculoskeletal: Denies: joint swelling, muscle pain. Skin: Denies: moles, rash. Neurological/Psychological: Denies: anxiety, cognitive dysfunction, depressed, dementia, headache, numbness, tingling, tremors, tonic-clonic seizures, unable to move lower ext, unable to move upper ext, weakness. Hematologic/Endocrine: Denies: bruising, bleeding. Exam & Diagnostic Data Last 24 Hrs of Vital Signs/I&O Vital Signs Date Time Temp Pulse Resp B/P B/P Pulse O2 O2 Flow FiO2 Mean Ox Delivery Rate 04/13 1446 97.0 93 18 140/71 98 Room Air Room Air 04/13 1204 98.2 86 18 117/55 95 Room Air 04/13 1051 97.0 88 134/78 04/13 1040 92 18 148/72 99 Room Air Room Air 04/13 1027 99 Room Air Room Air 04/13 0959 96.0 94 18 112/68 94 Intake & Output 04/13 1600 04/13 0800 04/13 0000 Intake Total 1000 Output Total Balance 1000 Intake, IV 1000 Patient 67.585 kg Weight Weight Reported by Patient Measurement Method Physical Exam General Appearance Alert, Oriented X3, Cooperative, No Acute Distress Skin No Rashes, No Breakdown, No Significant Lesion Skin Temp/Moisture Exam: Warm/Dry HEENT Atraumatic, PERRLA, EOMI, dry mucous memebrane Neck Supple Cardiovascular Regular Rate, Normal S1, Normal S2, No Murmurs, no carotid bruit Lungs Clear to Auscultation, Normal Air Movement Abdomen Normal Bowel Sounds, Soft, No Tenderness, ileostomy bag, erythema around the back but no skin laceration, no tenderness Neurological Normal Speech, Strength at 5/5 X4 Ext, Normal Tone, Sensation Intact, Cranial Nerves 3-12 NL, Reflexes 2+ Extremities No Clubbing, No Cyanosis, No Edema, Normal Pulses, No Tenderness/ Swelling Last 24 Hrs of Labs/Cullen: Laboratory Tests 04/13/18 1038: Anion Gap 18 H, Estimated GFR 11 L, BUN/Creatinine Ratio 21.0, Glucose 99, Lactic Acid 0.8, Calcium 9.5, Total Bilirubin 0.5, AST 19, ALT 27, Alkaline Phosphatase 106, Creatine Kinase 80, Troponin I 0.02, Total Protein 6.4, Albumin 3.8, Globulin 2.6, Albumin/Globulin Ratio 1.5, Triglycerides 109, Cholesterol 122, LDL Cholesterol, Calc 46 L, HDL Cholesterol 55, Cholesterol/HDL Ratio 2, TSH &T3 &Free T4 Intrp 0.850, CBC w Diff MAN DIFF ORDERED, RBC 4.44, MCV 87.4, MCH 28.6, MCHC 32.7 L, RDW 15.6 H, MPV 7.9, Gran % 88.8 H, Lymphocytes % 4.2 L, Monocytes % 6.0, Eosinophils % 0.7, Basophils % 0.3, Absolute Granulocytes 6.9 H, Absolute Lymphocytes 0.3 L, Absolute Monocytes 0.5, Absolute Eosinophils 0.1, Absolute Basophils 0, Platelet Estimate VERIFIED BY SMEAR, Anisocytosis 1+, Lyme Disease Antibody Pending Assessment/Plan Assessment: Day is a 16 year old female with past medical history significant for hypertension, hyperlipidemia, COPD not on home oxygen, diverticulosis, colonic polyps status post colectomy with ileostomy in January 2018 who presented to ED after a fall and neurological changes around 24 ago--symptoms resolved. My differential diagnosis include TIA, seizure, hypoglycemia, hypotension, infectious causes such as meningitis or encephalitis. Given patient age and absence of any history of Alzheimer, brain tumor, brain injury, previous history of seizure. I feel that it is most likely not a new onset of seizure. Her symptoms mostly consistent with TIA given the fact of resolving her symptoms within 24 hours, CT head negative for any bleeding or intracranial pathology. All of her labs are within normal except for elevated BUN and creatinine, acute kidney injury in setting of prerenal azotemia. We will work up for TIA/stroke Problem list Syncope Neurological changes, resolved ANTHONY Metabolic acidosis with normal lactic acid. Mostly due to ketosis and sitting of starvation Hypertension, hyperlipidemia Plan Admit to telemetry floor Vitals every shift Neurochecks Q4 Aspirin full dose and continue with 81 mg daily Lipitor 40 mg MRI head Carotid ultrasound Echocardiogram Lipid profile Hemoglobin A1c Accu check and NovoLog sliding scale Hold lisinopril for ANTHONY IV fluid normal saline 3 packs and repeat BEP receiving Repeat CBC and BEP in a.m. Repeat Troponins and EKG Obtain UA Patient passed bedside swallowing evaluation Obtain PT and formal swallow eval Consider EEG Code full Diet diabetic diet with sodium restriction VT prophylaxis heparin subcutaneous As Ranked By This Provider Problem List: 1. ANTHONY (acute kidney injury) 2. Syncope 3. Ileostomy status 4. Dehydration Core Measures/Misc (07/08) Acute Coronary Syndrome ACS Diagnosis: No Congestive Heart Failure Congestive Heart Failure Diagnosis No Cerebrovascular Accident CVA/TIA Diagnosis: No VTE (View Protocol) VTE Risk Factors Age>40 No Mechanical VTE Prophylaxis d/t N/A MechProphylax Ordered No VTE Pharm Prophylaxis d/t NA PharmProphylax ordered Sepsis (View protocol) Sepsis Present: No If YES complete Sepsis Event Note If YES complete Sepsis Event Note Tres SAINI,Marsha 04/13/18 1509: General Information and HPI Allergies/Medications Home Med list Acetaminophen 500 MG TABLET 2 TAB PO PRN PAIN (Reported) Albuterol Sulfate 2.5 MG/3 ML (0.083 %) VIAL.NEB 1 Vial INH/YOU PRN SOB ( Reported) Atorvastatin Calcium 10 MG TABLET 1 TAB PO DAILY CHOLESTEROL (Reported) Cholestyramine/Aspartame (Cholestyramine Light Packet) 4 GRAM POWD.PACK 1 PAC PO BID PRN ileostomy output as directed by , to help slow ileostomy output Diphenoxylate HCl/Atropine (Diphenoxylate-Atrop 2.5-0.025) 2.5 MG-0.025 MG TABLET 5 MG PO TID ileostomy output as per , for high ileostomy output Ergocalciferol (Vitamin D2) (Vitamin D2) 50,000 UNIT CAPSULE 1 CAP PO QW SUPPLEMENT (Reported) Ferrous Sulfate (Unknown Strength) TABLET (Unknown Dose) PO DAILY SUPPLEMENT (Reported) Fluticasone/Salmeterol (Advair 250-50 Diskus) 250 MCG-50 MCG/DOSE BLST.W.DEV 1 PUF INH BID SOB (Reported) Glipizide 5 MG TABLET 1 TAB PO DAILY DM (Reported) Hydrochlorothiazide 12.5 MG TABLET 1 TAB PO DAILY DIURETIC (Reported) Losartan (Cozaar) 100 MG TABLET 1 TAB PO DAILY HTN (Reported) Metformin HCl 500 MG TABLET 1 TAB PO DAILY DM (Reported) Thiamine HCl (B-1) (Unknown Strength) TABLET (Unknown Dose) PO DAILY SUPPLEMENT (Reported) Vit C/Curtis AC/Lut/Copper/Znox (Preservision Lutein Softgel) 226-200-5 CAPSULE 2 TAB SUPPLEMENT (Reported) Vitamin E Mixed (Vitamin E) (Unknown Strength) TABLET (Unknown Dose) PO DAILY SUPPLEMENT (Reported) Core Measures/Misc (07/08) Sepsis (View protocol) If YES complete Sepsis Event Note If YES complete Sepsis Event Note Attending MD Review Statement Attending Statement Attending MD Statement: examined this patient, discuss w/resident/PA/DESIGN TECH, agreed w/resident/PA/DESIGN TECH, discussed with family, reviewed EMR data (avail), discussed with nursing, discussed with case mgmt, reviewed images, amended to note Attending Assessment/Plan: 78-year-old female with past medical history significant for hypertension, COPD, diabetes, recent Robotic low anterior resection with low colorectal anastomosis and diverting loop colostomy for a 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 After her colon surgery she has been admitted once with left leg abnormality is an excessive stool production. She presented today after an episode that occurred approximately 2 days ago. She last member sitting on the couch and then the next thing she remembers is she was found on the floor. She does remember that she had some slurred speech and she was contracted in both upper and lower extremities. She was wild in her stool and her urine. She could not get up because she did not have strength to get up and it took her almost 2 days to go to the bathroom clean herself up change her colostomy bag and finally called her daughter. She has not been eating or drinking during the last 2 days. She has not taken her medications. In the emergency room her CT head is negative but her creatinine is very high and she is in acute renal failure. Vital Signs Date Time Temp Pulse Resp B/P B/P Pulse O2 O2 Flow FiO2 Mean Ox Delivery Rate 04/13 1446 97.0 93 18 140/71 98 Room Air Room Air 04/13 1204 98.2 86 18 117/55 95 Room Air 04/13 1051 97.0 88 134/78 04/13 1040 92 18 148/72 99 Room Air Room Air 04/13 1027 99 Room Air Room Air 04/13 0959 96.0 94 18 112/68 94 on exam; aox3, nad. heent; mm dry. cv; s1, s2, rrr resp; clear abd; soft, nt, bs+, + colostomy bag. ext; no edema Laboratory Tests 04/13 1038 Chemistry Sodium (137 - 145 mmol/L) 137 Potassium (3.5 - 5.1 mmol/L) 4.9 Chloride (98 - 107 mmol/L) 102 Carbon Dioxide (22 - 30 mmol/L) 17 L Anion Gap (5 - 16) 18 H BUN (7 - 17 mg/dL) 82 H Creatinine (0.5 - 1.0 mg/dL) 3.9 H Estimated GFR (>60 ml/min) 11 L BUN/Creatinine Ratio (7 - 25 %) 21.0 Glucose (65 - 99 mg/dL) 99 Lactic Acid (0.7 - 2.1 mmol/L) 0.8 Calcium (8.4 - 10.2 mg/dL) 9.5 Total Bilirubin (0.2 - 1.3 mg/dL) 0.5 AST (14 - 36 U/L) 19 ALT (9 - 52 U/L) 27 Alkaline Phosphatase (<127 U/L) 106 Creatine Kinase (30 - 135 U/L) 80 Troponin I (< 0.11 ng/ml) 0.02 Total Protein (6.3 - 8.2 g/dL) 6.4 Albumin (3.5 - 5.0 g/dL) 3.8 Globulin (1.9 - 4.2 gm/dL) 2.6 Albumin/Globulin Ratio (1.1 - 2.2 %) 1.5 Triglycerides (<150 mg/dL) 109 Cholesterol (<200 MG/DL) 122 LDL Cholesterol, Calc (65 - 129 mg/dL) 46 L HDL Cholesterol (40 - 60 mg/dL) 55 Cholesterol/HDL Ratio (0.00 - 4.23 %) 2 TSH &T3 &Free T4 Intrp (0.270 - 4.20 uIU/mL) 0.850 Hematology CBC w Diff MAN DIFF ORDERED WBC (4.8 - 10.8 /CUMM) 7.8 RBC (4.20 - 5.40 /CUMM) 4.44 Hgb (12.0 - 16.0 G/DL) 12.7 Hct (37 - 47 %) 38.8 MCV (81.0 - 99.0 FL) 87.4 MCH (27.0 - 31.0 PG) 28.6 MCHC (33.0 - 37.0 G/DL) 32.7 L RDW (11.5 - 14.5 %) 15.6 H Plt Count (130 - 400 /CUMM) 252 MPV (7.4 - 10.4 FL) 7.9 Gran % (42.2 - 75.2 %) 88.8 H Lymphocytes % (20.5 - 51.1 %) 4.2 L Monocytes % (1.7 - 9.3 %) 6.0 Eosinophils % (0 - 5 %) 0.7 Basophils % (0.0 - 2.0 %) 0.3 Absolute Granulocytes (1.4 - 6.5 /CUMM) 6.9 H Absolute Lymphocytes (1.2 - 3.4 /CUMM) 0.3 L Absolute Monocytes (0.10 - 0.60 /CUMM) 0.5 Absolute Eosinophils (0.0 - 0.7 /CUMM) 0.1 Absolute Basophils (0.0 - 0.2 /CUMM) 0 Platelet Estimate (ADEQUATE) VERIFIED BY SMEAR Anisocytosis 1+ Serology Lyme Disease Antibody Pending EKG>> NSR. CT head: IMPRESSION: No acute intracranial abnormality. 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 Presented with syncopal episode which was unwitnessed and some contractures and slurred speech. There is a possibility off stroke versus seizures. She is also in acute renal failure likely secondary to prerenal azotemia from dehydration. Patient will be admitted to telemetry. She will be started on stroke pathway. She will be started on aspirin and statin. Will obtain lipid profile. Will obtain echo, carotid Doppler and MRI brain. Neurology consult will be obtained. Please also obtain EEG. Housestaff performed bedside swallow eval which she passed. She will be hydrated with IV fluids and her renal function will be monitored. For her diabetes for now she will be covered with sliding scale insulin and Accu -Cheks. Will hold oral hypoglycemics that her kidney function normalized. She will be on heparin subcutaneous for DVT prophylaxis. She will be getting PT /OT/ST. She is a full code. Discussed with her family at bedside.
[2018-04-13 16:33] VITALS: BP 122/78
[2018-04-13 21:48] VITALS: BP 126/58
--- NOTE | 2018-04-14 01:22 | ULTRASOUND REPORT ---
EXAMINATION: US DUPLEX CAROTID AND VERTEBRAL CLINICAL INFORMATION: 78-year-old female with TIA, slurred speech, dizziness, fall COMPARISON: None TECHNIQUE: Real-time ultrasound and Doppler techniques (integrating B-mode 2D vascular images, Doppler spectral analysis and color flow Doppler imaging) were utilized to interrogate the extracranial carotid and vertebral arteries bilaterally. The degree of stenosis determined by criteria similar to NASCET. FINDINGS: 1. On the right: Small amount of plaque is present at the carotid bifurcation but velocity measurements are normal and do not suggest a stenosis of greater than 50% diameter reduction in the right ICA. The vertebral artery is patent demonstrating antegrade flow. The common carotid artery velocity is 108 cm/s. The internal carotid artery velocities are 86 cm/s systolic and 11 cm/s diastolic. The external carotid artery velocity is 127 cm/s. 2. On the left: No plaque is present at the carotid bifurcation and all velocity measurements are normal and do not suggest a stenosis of greater than 50% diameter reduction in the left ICA. The vertebral artery is patent demonstrating antegrade flow. The common carotid artery velocity is 121 cm/s. The internal carotid artery velocities are 105 cm/s systolic and 18 cm/s diastolic. The external carotid artery velocity is 151 cm/s. IMPRESSION: There is small amount of plaque present in the right internal carotid artery with normal velocities consistent with a minimal 0-49% stenosis. The left side is normal with no plaque seen.
[2018-04-14 06:30] VITALS: BP 110/58
[2018-04-14 08:26] LABS: ABSOLUTE BASOPHIL COUNT 0 /CUMM (0.0-0.2); ABSOLUTE EOSINOPHIL COUNT 0.1 /CUMM (0.0-0.7); ABSOLUTE GRANULOCYTE CT 3.3 /CUMM (1.4-6.5); ABSOLUTE LYMPH COUNT 0.7 /CUMM (1.2-3.4); ABSOLUTE MONOCYTE COUNT 0.4 /CUMM (0.10-0.60); BASOPHIL % 0.8 % (0.0-2.0); EOSINOPHIL % 2.2 % (0-5); GRANULOCYTE % 72.3 % (42.2-75.2); MEAN CORPUSCULAR HGB 28.9 PG (27.0-31.0); MEAN CORPUSCULAR HGB CONC 33.6 G/DL (33.0-37.0); MEAN CORPUSCULAR VOLUME 86.2 FL (81.0-99.0); MEAN PLATELET VOLUME 7.9 FL (7.4-10.4); PLATELET COUNT 208 /CUMM (130-400); RBC DISTRIBUTION WIDTH 15.6 % (11.5-14.5); RED BLOOD CELL CT 3.79 /CUMM (4.20-5.40); WHITE BLOOD CELL COUNT 4.6 /CUMM (4.8-10.8)
--- NOTE | 2018-04-14 08:29 | PN- Housestaff ---
Rosnane SAINI,Lizeth 04/14/18 0829: Subjective Follow-up For: Syncope Neurological changes, resolved ANTHONY Metabolic acidosis with normal lactic acid. Mostly due to ketosis and sitting of starvation Hypertension, hyperlipidemia Tele-Events Since Last Visit: Normal sinus rhythm, 7080, 0.08, 0.180.2, no overnight events Subjective: Patient was seen and examined, no overnight events, vital signs are stable, she was able to work with physical therapy down the stairs, Review of Systems Constitutional: Reports: see HPI. Objective Last 24 Hrs of Vital Signs/I&O Vital Signs Date Time Temp Pulse Resp B/P B/P Pulse O2 O2 Flow FiO2 Mean Ox Delivery Rate 04/14 0630 97.6 77 20 110/58 99 04/13 2148 98.2 85 126/58 97 Room Air 04/13 2121 Room Air Room Air 04/13 1633 98.1 81 122/78 98 Room Air 04/13 1541 87 21 150/78 99 04/13 1446 97.0 93 18 140/71 98 Room Air Room Air 04/13 1204 98.2 86 18 117/55 95 Room Air 04/13 1051 97.0 88 134/78 04/13 1040 92 18 148/72 99 Room Air Room Air 04/13 1027 99 Room Air Room Air Intake & Output 04/14 1600 04/14 0800 04/14 0000 Intake Total 1420 600 Output Total 225 Balance 1195 600 Intake, IV 820 400 Intake, Oral 600 200 Output, Stool 225 Patient 157 lb Weight Weight Bed scale Measurement Method Physical Exam General Appearance: Alert, Oriented X3, Cooperative, No Acute Distress Cardiovascular: Normal S1, Normal S2 Lungs: Clear to Auscultation Abdomen: Normal Bowel Sounds, Soft, No Tenderness Extremities: No Clubbing, No Cyanosis, No Edema Assessment/Plan Assessment: Fide is a 78 year old female with past medical history significant for hypertension, hyperlipidemia, COPD not on home oxygen, diverticulosis, colonic polyps status post colectomy with ileostomy in January 2018 who presented to ED after a fall and neurological changes around 24 ago--symptoms resolved. dd: TIA, seizure, hypoglycemia, hypotension, infectious causes such as meningitis or encephalitis. Given patient age and absence of any history of Alzheimer, brain tumor, brain injury, previous history of seizure. I feel that it is most likely not a new onset of seizure. Her symptoms mostly consistent with TIA given the fact of resolving her symptoms within 24 hours, CT head negative for any bleeding or intracranial pathology. All of her labs are within normal except for elevated BUN and creatinine, acute kidney injury in setting of prerenal azotemia. We will work up for TIA/stroke Problem list Syncope Neurological changes, resolved ANTHONY Metabolic acidosis with normal lactic acid. Mostly due to ketosis and sitting of starvation Hypertension, hyperlipidemia Plan To to monitor on telemetry Continuous telemetry monitoring Vitals every shift Neurochecks Q4 Continue aspirin 81 mg daily Lipitor 40 mg MRI head Carotid ultrasound showed narrowing 049% Echocardiogram pending Lipid profile normal Hemoglobin A1c Accu check and NovoLog sliding scale Hold lisinopril for ANTHONY IV fluid normal saline 3 packs and repeat BEP receiving Repeat CBC and BEP in a.m. Serial tropes and EKG ruled out ACS Social consult appreciated Obtain UA Patient passed bedside swallowing evaluation Follow-up on formal swallow eval Consider EEG Neurology consult appreciated Code full Diet diabetic diet with sodium restriction VT prophylaxis heparin subcutaneous Problem List: 1. ANTHONY (acute kidney injury) 2. Syncope Pain Ratin Pain Location: n/a Pain Goal: Remain pain free Pain Plan: PATHWYA Tomorrow's Labs & Rationales: CBC BEP Tres SAINI,Marsha 04/14/18 1046: Attending MD Review Statement Attending Statement Attending MD Statement: examined this patient, discuss w/resident/PA/COVER CREASER, agreed w/resident/PA/COVER CREASER, reviewed EMR data (avail), discussed with nursing, discussed with case mgmt, reviewed images, amended to note Attending Assessment/Plan: Patient seen and examined, overall doing better. Denies any complaints. Creatinine is improving. No acute tele events overnight. Vital Signs Date Time Temp Pulse Resp B/P B/P Pulse O2 O2 Flow FiO2 Mean Ox Delivery Rate 04/14 0630 97.6 77 20 110/58 99 04/13 2148 98.2 85 126/58 97 Room Air 04/13 2121 Room Air Room Air 04/13 1633 98.1 81 122/78 98 Room Air 04/13 1541 87 21 150/78 99 04/13 1446 97.0 93 18 140/71 98 Room Air Room Air 04/13 1204 98.2 86 18 117/55 95 Room Air 04/13 1051 97.0 88 134/78 on exam; aox3, nad. cv; s1, s2, rrr resp; clear abd; soft, nt, bs+, + colostomy bag. ext; no edema. neuro; non focal. Laboratory Tests 04/14 1928 1648 Chemistry Sodium (137 - 145 mmol/L) 136 L 134 L Potassium (3.5 - 5.1 mmol/L) 4.2 4.5 Chloride (98 - 107 mmol/L) 107 103 Carbon Dioxide (22 - 30 mmol/L) 15 L 17 L Anion Gap (5 - 16) 14 15 BUN (7 - 17 mg/dL) 72 H 79 H Creatinine (0.5 - 1.0 mg/dL) 2.9 H 3.3 H Estimated GFR (>60 ml/min) 16 L 13 L BUN/Creatinine Ratio (7 - 25 %) 24.8 23.9 Hemoglobin A1c (4.2 - 5.8 %) Pending Troponin I (< 0.11 ng/ml) 0.01 Hematology CBC w Diff NO MAN DIFF REQ WBC (4.8 - 10.8 /CUMM) 4.6 L RBC (4.20 - 5.40 /CUMM) 3.79 L Hgb (12.0 - 16.0 G/DL) 11.0 L Hct (37 - 47 %) 32.6 L MCV (81.0 - 99.0 FL) 86.2 MCH (27.0 - 31.0 PG) 28.9 MCHC (33.0 - 37.0 G/DL) 33.6 RDW (11.5 - 14.5 %) 15.6 H Plt Count (130 - 400 /CUMM) 208 MPV (7.4 - 10.4 FL) 7.9 Gran % (42.2 - 75.2 %) 72.3 Lymphocytes % (20.5 - 51.1 %) 16.4 L Monocytes % (1.7 - 9.3 %) 8.3 Eosinophils % (0 - 5 %) 2.2 Basophils % (0.0 - 2.0 %) 0.8 Absolute Granulocytes (1.4 - 6.5 /CUMM) 3.3 Absolute Lymphocytes (1.2 - 3.4 /CUMM) 0.7 L Absolute Monocytes (0.10 - 0.60 /CUMM) 0.4 Absolute Eosinophils (0.0 - 0.7 /CUMM) 0.1 Absolute Basophils (0.0 - 0.2 /CUMM) 0 04/13 1312 Urines Urine Color Cancelled Urine Clarity Cancelled Urine pH Cancelled Ur Specific [place] Cancelled Urine Protein Cancelled Urine Ketones Cancelled Urine Nitrite Cancelled Urine Bilirubin Cancelled Urine Urobilinogen Cancelled Ur Leukocyte Esterase Cancelled Ur Microscopic Cancelled Urine Hemoglobin Cancelled Urine Glucose Cancelled A/P; 78-year-old female with past medical history significant for hypertension, COPD, diabetes, recent Robotic low anterior resection with low colorectal anastomosis and diverting loop colostomy for a 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 Presented with syncopal episode which was unwitnessed, had body contractures and slurred speech. There is a possibility off tia/stroke versus seizures. She also has acute renal failure likely secondary to prerenal azotemia from dehydration. Will continue IV fluids. Patient to get MRI brain, EEG. Please follow-up on the echo results. Carotid Doppler does not show any significant finding. Neuro consult is pending. Creatinine slowly improving. Continue aspirin and statin and other current medications. Patient heparin subcutaneous for DVT prophylaxis. Patient to work with PT/ST.
[2018-04-14 08:55] LABS: HEMATOCRIT 32.6 % (37-47)
[2018-04-14 14:00] VITALS: BP 120/60
--- NOTE | 2018-04-14 15:09 | Cons- Neurology ---
General Information and HPI Consulting Request Date of Consult: 04/14/18 Requested By: Marsha Joshua MD Source of Information: patient, family Exam Limitations: no limitations History of Present Illness: 78-year-old female had unusual event prompting visit to Hospital 4 days ago she had a few episodes of vomiting The following day she was lying on her couch and likely slept She then found herself on the floor She was unable to get up from the floor She had generalized weakness She stated that when she tried to talk she noted slurred speech She was unable to get to a phone She apparently laser for 2 days until a daughter entered the house At that point she was sitting on a chair The carpet where she was laying was full of feces and urine 1 found she had no deficit She lives alone and there was no observer to the event No similar problems previously Allergies/Medications Allergies: Coded Allergies: cyclobenzaprine (From FLEXERIL) (INCREASED PAIN 02/07/18) Home Med List: Acetaminophen 500 MG TABLET 2 TAB PO PRN PAIN (Reported) Albuterol Sulfate 2.5 MG/3 ML (0.083 %) VIAL.NEB 1 Vial INH/YOU PRN SOB ( Reported) Atorvastatin Calcium 10 MG TABLET 1 TAB PO DAILY CHOLESTEROL (Reported) Cholestyramine/Aspartame (Cholestyramine Light Packet) 4 GRAM POWD.PACK 1 PAC PO BID PRN ileostomy output as directed by , to help slow ileostomy output Diphenoxylate HCl/Atropine (Diphenoxylate-Atrop 2.5-0.025) 2.5 MG-0.025 MG TABLET 5 MG PO TID ileostomy output as per , for high ileostomy output Ergocalciferol (Vitamin D2) (Vitamin D2) 50,000 UNIT CAPSULE 1 CAP PO QW SUPPLEMENT (Reported) Ferrous Sulfate (Unknown Strength) TABLET (Unknown Dose) PO DAILY SUPPLEMENT (Reported) Fluticasone/Salmeterol (Advair 250-50 Diskus) 250 MCG-50 MCG/DOSE BLST.W.DEV 1 PUF INH BID SOB (Reported) Glipizide 5 MG TABLET 1 TAB PO DAILY DM (Reported) Hydrochlorothiazide 12.5 MG TABLET 1 TAB PO DAILY DIURETIC (Reported) Losartan (Cozaar) 100 MG TABLET 1 TAB PO DAILY HTN (Reported) Metformin HCl 500 MG TABLET 1 TAB PO DAILY DM (Reported) Thiamine HCl (B-1) (Unknown Strength) TABLET (Unknown Dose) PO DAILY SUPPLEMENT (Reported) Vit C/Curtis AC/Lut/Copper/Znox (Preservision Lutein Softgel) 226-200-5 CAPSULE 2 TAB SUPPLEMENT (Reported) Vitamin E Mixed (Vitamin E) (Unknown Strength) TABLET (Unknown Dose) PO DAILY SUPPLEMENT (Reported) Current Medications: Current Medications Sig/Cirilo Start time Last Medication Dose Route Stop Time Status Admin Acetaminophen 650 MG Q6P PRN 04/13 1430 AC PO Albuterol Sulfate 3 ML Q4P PRN 04/13 2130 AC INH Albuterol Sulfate 2 PUF Q4P PRN 04/13 1500 AC INH Aspirin 81 MG DAILY 04/14 0900 AC 04/14 PO 0816 Atorvastatin Calcium 40 MG 1700 04/13 1700 AC 04/13 PO 2131 Budesonide/ 2 PUF BID 04/13 2100 AC 04/14 Formoterol Fumarate INH 0816 Diphenoxylate HCl/ 5 MG TID 04/13 1446 AC 04/14 Atropine PO 1436 Glycerin/Mineral Oil 1 GENA TID PRN 04/13 1545 AC TOP Heparin Sodium 5,000 UNIT Q8 04/13 2200 AC 04/14 (Porcine) SC 1155 Insulin Aspart 0 TIDAC 04/13 1700 AC 04/14 SC 1155 Sodium Chloride 1,000 ML .[id number] 04/13 1430 AC 04/14 IV 04/14 1709 0556 Review of Systems Review of Systems: At present denies headache, vertigo, speech difficulty, swallowing difficulty, chest pain, breathing difficulties, abdominal pain, swelling, focal weakness, fevers She does have a colostomy bag secondary to recent colon surgery She states that she has mid back discomfort secondary to laying on the floor for 2 days in duration Other systems reviewed are negative Past History Travel History Traveled to [place] past 21 day No Medical History Neurological: NONE EENT: NONE Cardiovascular: hypertension Respiratory: COPD Gastrointestinal: ileostomy status colonic polyp Hepatic: NONE Renal: NONE Musculoskeletal: NONE Psychiatric: NONE Endocrine: diabetes Blood Disorders: NONE Cancer(s): NONE [employer] 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 Home Who Do You Live With? self Services at Home: None Primary Language: Welsh Smoking Status: Former Smoker ETOH Use: denies use Illicit Drug Use: denies illicit drug use Functional Ability ADLs Independent: dressing, eating, toileting, bathing. Ambulation: independent Exam & Diagnostic Data Vital Signs and I&O Vital Signs Date Time Temp Pulse Resp B/P B/P Pulse O2 O2 Flow FiO2 Mean Ox Delivery Rate 04/14 1400 98.1 80 20 120/60 96 04/14 1145 96 Room Air Room Air 04/14 0630 97.6 77 20 110/58 99 04/13 2148 98.2 85 126/58 97 Room Air 04/13 2121 Room Air Room Air 04/13 1633 98.1 81 122/78 98 Room Air 04/13 1541 87 21 150/78 99 Intake & Output 04/14 1600 04/14 0800 04/14 0000 Intake Total 1420 600 Output Total 225 Balance 1195 600 Intake, IV 820 400 Intake, Oral 600 200 Output, Stool 225 Patient 157 lb Weight Weight Bed scale Measurement Method Physical Exam: Alert and oriented Language functions fund of knowledge attention span concentration recall intact Heart sounds normal no carotid bruits distal pulses intact Extraocular movements full pupils equal reactive fundi benign visual sullivan intact no facial weakness or facial sensory loss palate tongue and shoulders intact hearing grossly intact Normal tone and strength upper and lower extremities Sensory exam normal to light touch Deep tendon reflexes hypoactive throughout Coordinative functions and gait normal Last 48 Hours of Lab Results: Laboratory Tests 04/14 04/13 04/13 0625 1928 1648 Chemistry Sodium (137 - 145 mmol/L) 136 L 134 L Potassium (3.5 - 5.1 mmol/L) 4.2 4.5 Chloride (98 - 107 mmol/L) 107 103 Carbon Dioxide (22 - 30 mmol/L) 15 L 17 L Anion Gap (5 - 16) 14 15 BUN (7 - 17 mg/dL) 72 H 79 H Creatinine (0.5 - 1.0 mg/dL) 2.9 H 3.3 H Estimated GFR (>60 ml/min) 16 L 13 L BUN/Creatinine Ratio (7 - 25 %) 24.8 23.9 Hemoglobin A1c (4.2 - 5.8 %) Pending Phosphorus (2.5 - 4.5 mg/dL) 4.9 H Troponin I (< 0.11 ng/ml) 0.01 Hematology CBC w Diff NO MAN DIFF REQ WBC (4.8 - 10.8 /CUMM) 4.6 L RBC (4.20 - 5.40 /CUMM) 3.79 L Hgb (12.0 - 16.0 G/DL) 11.0 L Hct (37 - 47 %) 32.6 L MCV (81.0 - 99.0 FL) 86.2 MCH (27.0 - 31.0 PG) 28.9 MCHC (33.0 - 37.0 G/DL) 33.6 RDW (11.5 - 14.5 %) 15.6 H Plt Count (130 - 400 /CUMM) 208 MPV (7.4 - 10.4 FL) 7.9 Gran % (42.2 - 75.2 %) 72.3 Lymphocytes % (20.5 - 51.1 %) 16.4 L Monocytes % (1.7 - 9.3 %) 8.3 Eosinophils % (0 - 5 %) 2.2 Basophils % (0.0 - 2.0 %) 0.8 Absolute Granulocytes (1.4 - 6.5 /CUMM) 3.3 Absolute Lymphocytes (1.2 - 3.4 /CUMM) 0.7 L Absolute Monocytes (0.10 - 0.60 /CUMM) 0.4 Absolute Eosinophils (0.0 - 0.7 /CUMM) 0.1 Absolute Basophils (0.0 - 0.2 /CUMM) 0 04/13 04/13 1312 1038 Chemistry Sodium (137 - 145 mmol/L) 137 Potassium (3.5 - 5.1 mmol/L) 4.9 Chloride (98 - 107 mmol/L) 102 Carbon Dioxide (22 - 30 mmol/L) 17 L Anion Gap (5 - 16) 18 H BUN (7 - 17 mg/dL) 82 H Creatinine (0.5 - 1.0 mg/dL) 3.9 H Estimated GFR (>60 ml/min) 11 L BUN/Creatinine Ratio (7 - 25 %) 21.0 Glucose (65 - 99 mg/dL) 99 Lactic Acid (0.7 - 2.1 mmol/L) 0.8 Calcium (8.4 - 10.2 mg/dL) 9.5 Total Bilirubin (0.2 - 1.3 mg/dL) 0.5 AST (14 - 36 U/L) 19 ALT (9 - 52 U/L) 27 Alkaline Phosphatase (<127 U/L) 106 Creatine Kinase (30 - 135 U/L) 80 Troponin I (< 0.11 ng/ml) 0.02 Total Protein (6.3 - 8.2 g/dL) 6.4 Albumin (3.5 - 5.0 g/dL) 3.8 Globulin (1.9 - 4.2 gm/dL) 2.6 Albumin/Globulin Ratio (1.1 - 2.2 %) 1.5 Triglycerides (<150 mg/dL) 109 Cholesterol (<200 MG/DL) 122 LDL Cholesterol, Calc (65 - 129 mg/dL) 46 L HDL Cholesterol (40 - 60 mg/dL) 55 Cholesterol/HDL Ratio (0.00 - 4.23 %) 2 TSH &T3 &Free T4 Intrp (0.270 - 4.20 uIU/mL) 0.850 Hematology CBC w Diff MAN DIFF ORDERED WBC (4.8 - 10.8 /CUMM) 7.8 RBC (4.20 - 5.40 /CUMM) 4.44 Hgb (12.0 - 16.0 G/DL) 12.7 Hct (37 - 47 %) 38.8 MCV (81.0 - 99.0 FL) 87.4 MCH (27.0 - 31.0 PG) 28.6 MCHC (33.0 - 37.0 G/DL) 32.7 L RDW (11.5 - 14.5 %) 15.6 H Plt Count (130 - 400 /CUMM) 252 MPV (7.4 - 10.4 FL) 7.9 Gran % (42.2 - 75.2 %) 88.8 H Lymphocytes % (20.5 - 51.1 %) 4.2 L Monocytes % (1.7 - 9.3 %) 6.0 Eosinophils % (0 - 5 %) 0.7 Basophils % (0.0 - 2.0 %) 0.3 Absolute Granulocytes (1.4 - 6.5 /CUMM) 6.9 H Absolute Lymphocytes (1.2 - 3.4 /CUMM) 0.3 L Absolute Monocytes (0.10 - 0.60 /CUMM) 0.5 Absolute Eosinophils (0.0 - 0.7 /CUMM) 0.1 Absolute Basophils (0.0 - 0.2 /CUMM) 0 Platelet Estimate (ADEQUATE) VERIFIED BY SMEAR Anisocytosis 1+ Serology Lyme Disease Antibody Pending Urines Urine Color Cancelled Urine Clarity Cancelled Urine pH Cancelled Ur Specific [place] Cancelled Urine Protein Cancelled Urine Ketones Cancelled Urine Nitrite Cancelled Urine Bilirubin Cancelled Urine Urobilinogen Cancelled Ur Leukocyte Esterase Cancelled Ur Microscopic Cancelled Urine Hemoglobin Cancelled Urine Glucose Cancelled Imaging/Other Studies: CT FINDINGS: There is no intracranial hemorrhage, hydrocephalus, extra-axial surface collection, midline shift, or other herniation pattern. Tucker to white matter differentiation is diffusely maintained without evidence of an evolved acute territorial infarct. The basilar cisterns are preserved. No significant soft tissue abnormality. No acute osseous abnormality. The paranasal sinuses and the mastoid air cells are well-aerated. Mild mucosal thickening within the right ethmoid air cells. IMPRESSION: No acute intracranial abnormality. Carotid ultrasound IMPRESSION: There is small amount of plaque present in the right internal carotid artery with normal velocities consistent with a minimal 0-49% stenosis. The left side is normal with no plaque seen. Assessment/Plan Assessment: Transient neurologic event Possibilities include transient ischemic attack Unwitnessed seizure Period of hypotension or arrhythmia Recommendations: MRI scan brain to look for any evidence of ischemic event Electroencephalogram to look for any evidence of seizure Cardiac evaluation to look for any evidence of arrhythmia In the interim aspirin and a statin would be recommended Patient's daughter encouraged to buy a fall bracelet alarm for her mother to wear Consult Acknowledgment - Thank you for your consult request.
[2018-04-14 22:04] VITALS: BP 122/56
[2018-04-15 06:50] VITALS: BP 118/54
--- NOTE | 2018-04-15 07:16 | PN- Housestaff ---
Lee SAINI,Ofelia 04/15/18 0716: Subjective Follow-up For: Syncope Acute kidney injury Tele-Events Since Last Visit: Normal sinus rhythm 60s-70s Subjective: Seen and examined. Patient resting comfortably. Does not offer any complaints. Reports not eating and drinking well for past few days. Does not report increased output from ileostomy bag. Stated that she underwent colonoscopy and they found 9 polyps 1 of them could not be removed since she underwent colectomy with ileostomy in January 2018. She is scheduled for reversal in April 2018. She reports decreased intake because of everything smelled like stool. She appears to be in good spirits today. Review of Systems Constitutional: Reports: see HPI. Objective Last 24 Hrs of Vital Signs/I&O Vital Signs Date Time Temp Pulse Resp B/P B/P Pulse O2 O2 Flow FiO2 Mean Ox Delivery Rate 04/15 0650 97.7 76 18 118/54 99 Room Air 04/14 2204 98.0 70 18 122/56 99 Room Air 04/14 1400 98.1 80 20 120/60 96 Intake & Output 04/15 1600 04/15 0800 04/15 0000 Intake Total 200 300 Output Total 50 Balance 200 250 Intake, Oral 200 300 Output, Stool 50 Patient 166 lb Weight Weight Bed scale Measurement Method Physical Exam General Appearance: Alert, Oriented X3 Cardiovascular: Normal S1, Normal S2 Lungs: Clear to Auscultation Abdomen: ileostomy bag in place Neurological: Normal Speech Current Medications: Current Medications Sig/Cirilo Start time Last Medication Dose Route Stop Time Status Admin Acetaminophen 650 MG Q6P PRN 04/13 1430 AC PO Albuterol Sulfate 3 ML Q4P PRN 04/13 2130 AC INH Albuterol Sulfate 2 PUF Q4P PRN 04/13 1500 AC INH Aspirin 81 MG DAILY 04/14 0900 AC 04/15 PO 0824 Atorvastatin Calcium 40 MG 1700 04/13 1700 AC 04/14 PO 1611 Budesonide/ 2 PUF BID 04/13 2100 AC 04/15 Formoterol Fumarate INH 0824 Diphenoxylate HCl/ 5 MG TID 04/13 1446 AC 04/15 Atropine PO 1254 Glycerin/Mineral Oil 1 GENA TID PRN 04/13 1545 AC 04/14 TOP 2030 Heparin Sodium 5,000 UNIT Q8 04/13 2200 AC 04/15 (Porcine) SC 1255 Insulin Aspart 0 TIDAC 04/13 1700 AC 04/15 SC 1254 Sodium Chloride 1,000 ML .[id number] 04/13 1430 DC 04/14 IV 04/14 1709 0556 Last 24 Hrs of Lab/Cullen Results Last 24 Hrs of Labs/Mics: Laboratory Tests 04/15/18 0645: Anion Gap 9, Estimated GFR 25 L, BUN/Creatinine Ratio 30.5 H, Phosphorus 4.0, CBC w Diff NO MAN DIFF REQ, RBC 3.37 L, MCV 86.0, MCH 29.0, MCHC 33.7, RDW 15.2 H, MPV 7.5, Gran % 71.4, Lymphocytes % 18.1 L, Monocytes % 6.8, Eosinophils % 3.2, Basophils % 0.5, Absolute Granulocytes 2.8, Absolute Lymphocytes 0.7 L, Absolute Monocytes 0.3, Absolute Eosinophils 0.1, Absolute Basophils 0 Assessment/Plan Assessment: The patient is a 78-year-old female with past medical history of hypertension hyperlipidemia, COPD not on home oxygen, diverticulosis, multiple colonic polyps status post colectomy with ileostomy in January 2018 with reversal being planned in April 2018. Patient has been admitted to [facility] for evaluation of syncopal episode after she found herself on the floor with contracture of her limbs, slurred speech, urinary incontinence. The carpet on which she was lying was full of feces and urine. So far patient has been found to be orthostatic positive. CT scan has been negative. Echocardiogram was positive for mild aortic sclerosis, minimal mitral mitral insufficiency, [id number] tricuspid insufficiency without any Evidence of pulmonary hypertension. Ejection fraction is 60-65%. There have been no cardiac events on telemetry. Carotid Doppler showed small right-sided plaque with no stenosis left side was within normal limits. Patient has been evaluated by neurology. At this point our differentials include TIA versus seizures versus orthostatic hypotension?. Of note patient was orthostatics positive. Currently awaiting MRI and EEG. For now we are going to continue aspirin and statin. She has history of hypertension currently on hydrochlorothiazide and losartan at home. Both of the medications are on hold blood pressure running adequately. The patient had an ANTHONY of 3.9, she received 3 bags of normal saline and today her creatinine is improved to 1.9, we will continue gentle IV hydration with her baseline being 1.0 sodium is 138 and chloride is 111 with bicarb 18. Will shift to LR. We will continue to monitor creatinine curve. Patient presented with metabolic acidosis. Her L- lactate was normal. She had an anion gap of 18. There is a possibility of being the D-lactate high with history of colectomy (short bowel syndrome). It is likely as well that she might have some ketosis secondary to poor oral intake for past several days. Anion gap has closed bicarb is 18 improving will continue with LR 75ml/h Patient has history of diabetes mellitus HbA1c of 5.4. He is currently on metformin and glipizide at home. We are maintaining her on insulin sliding scale. Blood sugars in adequate range. On discharge we need to reconsider her anti-diabetic regimen with HbA1c within normal limits. It is also possible her episode may be secondary to hypoglycemia. She remains full code Problem List: 1. ANTHONY (acute kidney injury) 2. Dehydration 3. Colon polyp 4. Syncope Pain Ratin Pain Location: na Pain Goal: Pain 4 or less Pain Plan: prn Tomorrow's Labs & Rationales: Alexandro Weaver 04/15/18 1149: Attending MD Review Statement Attending Statement Attending MD Statement: examined this patient, discuss w/resident/PA/WINDCHILL ADMINISTRATOR, agreed w/resident/PA/WINDCHILL ADMINISTRATOR, reviewed EMR data (avail), discussed with nursing, discussed with case mgmt Attending Assessment/Plan: Syncopal episode- pt woke up on floor and was on floor according to pt for 1.5 days. Her CK level was normal though she had AK with cr of 3.9 on admission which has improved to 1.9. Pt was on HCTZ and losartan at home which has been held. Will get MRI brain and EEG today to further evaluate the etiology for her syncopal episode. Pt says she was not eating or drinking well prior to this episode. ANTHONY - improving. cont to monitor BEP DM- A1c is pending. Pt does not remember her preivous levels. will get records from her PCP. will cont to hold her oral DM meds for now. BS stable. d/w pt the care plan.
--- NOTE | 2018-04-15 07:36 | ECHOCARDIOGRAM REPORT ---
DAY LOMAS Age: 78 : 1940 Gender: F Exam Date: 04/14/2018 09:52 Exam Location: 1 [address] Ht (in): 58 Wt (lb): 149 BSA: 1.69 BP: 110 / 58 Ordering Physician: Lavelle Roque MD Referring Physician: Lvaelle Roque MD Technologist: Rosario Hernandez [facility] Room Number: 174-01 Indications: TIA Rhythm: Sinus Technical Quality: Fair, Technically difficult study FINDINGS Left Ventricle Normal size left ventricle. No obvious regional wall motion abnormalities. Normal left ventricular ejection fraction estimated at 60-65%. Right Ventricle Right ventricle not well visualized, grossly normal. Right Atrium Normal right atrial size. Left Atrium Left atrial size at the upper limits of normal. Mitral Valve Mild thickening/calcification of the anterior mitral valve leaflet. Trace to mild mitral regurgitation. Aortic Valve Trileaflet aortic valve. Diffuse thickening (sclerosis) of the aortic valve cusps without reduced excursion. Mild aortic regurgitation. Tricuspid Valve Tricuspid valve not well visualized, grossly normal. Mild-to- moderate tricuspid regurgitation. Right ventricular systolic pressure estimated at 36 mmHg. Pulmonic Valve Pulmonic valve not well visualized, grossly normal. Pericardium No pericardial effusion. Great Vessels Aortic root and proximal ascending aorta not well visualized, grossly normal. CONCLUSIONS 1. This was a technically difficult study 2. Mild aortic sclerosis is present with mild aortic insufficiency. 3. Thickening and calcification of the mitral leaflets is present with minimal mitral insufficiency 4. The left ventricular chamber size and systolic function are normal. There are no resting wall motion abnormalities. 5. Mild to moderate tricuspid insufficiency is present with no evidence of significant pulmonary hypertension. 7. Minimal enlargement of the inferior vena cava is noted. 8. Lipomatous hypertrophy of the atrial septum is noted. There is no shunt detected at the atrial septal level. Contrast saline injection was not performed. 9. There are no definite embolic source identified on this examination. Kelly Chung M.D. (Electronically Signed) Final Date: 15 April 2018 07:35 MEASUREMENTS (Male / Female) Normal Values 2D ECHO LV Diastolic Diameter PLAX 5.1 cm 4.2 - 5.9 / 3.9 - 5.3 cm LV Systolic Diameter PLAX 2.2 cm 2.1 - 4.0 cm LV Fractional Shortening PLAX 56.9 % 25 - 46 % LV Ejection Fraction 2D Teich 86.9 % IVS Diastolic Thickness 1.1 cm LVPW Diastolic Thickness 1.1 cm LV Relative Wall Thickness 0.4 RV Internal Dim ED PLAX 2.3 cm 1.9 - 3.8 cm LVOT Diameter 2.1 cm Aortic Root Diameter 2.9 cm LA Systolic Diameter LX 3.5 cm 3.0 - 4.0 / 2.7 - 3.8 cm LA Volume 32.0 cm 18 - 58 / 22 - 52 cm Ascending Aorta Diameter 2.8 cm DOPPLER AV Peak Velocity 157.0 cm/s AV Peak Gradient 9.9 mmHg AV Mean Velocity 114.0 cm/s AV Mean Gradient 6.0 mmHg AV Velocity Time Integral 37.3 cm LVOT Peak Velocity 141.0 cm/s LVOT Peak Gradient 8.0 mmHg LVOT Mean Velocity 93.2 cm/s LVOT Mean Gradient 4.0 mmHg LVOT Velocity Time Integral 30.7 cm LVOT Stroke Volume 106.3 cm AV Area Cont Eq vti 2.9 cm AV Area Cont Eq pk 3.1 cm MV Peak Velocity 137.0 cm/s MV Peak Gradient 7.5 mmHg MV Mean Velocity 72.2 cm/s MV Mean Gradient 2.0 mmHg Mitral E Point Velocity 88.8 cm/s Mitral A Point Velocity 130.0 cm/s Mitral E to A Ratio 0.7 MV PHT Velocity 114.0 cm/s MV Deceleration Sutton 518.0 cm/s MV Pressure Half Time 66.0 ms MV Area PHT 3.3 cm MV Deceleration Time 269.0 ms TR Peak Velocity 279.0 cm/s TR Peak Gradient 31.1 mmHg Right Atrial Pressure 5.0 mmHg Pulmonary Artery Systolic Pressu 36.1 mmHg Right Ventricular Systolic Press 36.1 mmHg PV Peak Velocity 84.7 cm/s PV Peak Gradient 2.9 mmHg PV Mean Velocity 59.5 cm/s PV Mean Gradient 2.0 mmHg PV Velocity Time Integral 21.0 cm LV E' Lateral Velocity 7.1 cm/s Mitral E to LV E' Lateral Ratio 12.5 LV E' Septal Velocity 5.0 cm/s Mitral E to LV E' Septal Ratio 17.9
[2018-04-15 07:55] LABS: ABSOLUTE BASOPHIL COUNT 0 /CUMM (0.0-0.2); ABSOLUTE EOSINOPHIL COUNT 0.1 /CUMM (0.0-0.7); ABSOLUTE GRANULOCYTE CT 2.8 /CUMM (1.4-6.5); ABSOLUTE LYMPH COUNT 0.7 /CUMM (1.2-3.4); ABSOLUTE MONOCYTE COUNT 0.3 /CUMM (0.10-0.60); BASOPHIL % 0.5 % (0.0-2.0); EOSINOPHIL % 3.2 % (0-5); GRANULOCYTE % 71.4 % (42.2-75.2); MEAN CORPUSCULAR HGB CONC 33.7 G/DL (33.0-37.0); MEAN PLATELET VOLUME 7.5 FL (7.4-10.4); PLATELET COUNT 188 /CUMM (130-400); RBC DISTRIBUTION WIDTH 15.2 % (11.5-14.5); RED BLOOD CELL CT 3.37 /CUMM (4.20-5.40); WHITE BLOOD CELL COUNT 3.9 /CUMM (4.8-10.8)
--- NOTE | 2018-04-15 11:24 | MRI REPORT ---
EXAMINATION: INCOMPLETE MR BRAIN WITHOUT CONTRAST CLINICAL INFORMATION: Fall. Slurred speech. Question TIA versus stroke. COMPARISON: Head CT from 04/13/2018. TECHNIQUE: MRI of the brain without contrast was obtained using routine sequences. Patient unable to complete the examination due to difficulty breathing and claustrophobia. FINDINGS: No diffusion abnormalities are identified to suggest an acute infarct. The ventricles are normal in size. No mass effect or midline shift is seen. Mild small vessel ischemic changes noted in the cerebral white matter. No extra-axial fluid collections are seen. The brainstem and cerebellum are normal. The craniovertebral junction, marrow signal, and midline structures are normal. The mastoid air cells are well aerated. There is mild mucosal thickening in the ethmoid sinuses. IMPRESSION: No acute intracranial process. Mild chronic white matter microangiopathy.
--- NOTE | 2018-04-15 17:47 | ELECTROENCEPHALOGRAM REPORT ---
Electroencephalogram Report Electroencephalogram Results Date of service: 04/15/18 Attending MD: Adarsh Fraire MD Gear Hobber: Artemio Pinto EEG Number: [id number] Test Utilizes: 10-20 system, 21 lead 18 channel digital recording Pertinent Hx/Physical/Neuro Findings/Clin Diagnosis: mental status change Inpatient Medications: Current Medications Sig/Cirilo Start time Last Medication Dose Route Stop Time Status Admin Acetaminophen 650 MG Q6P PRN 04/13 1430 AC PO Albuterol Sulfate 3 ML Q4P PRN 04/13 2130 AC INH Albuterol Sulfate 2 PUF Q4P PRN 04/13 1500 AC INH Aspirin 81 MG DAILY 04/14 0900 AC 04/15 PO 0824 Atorvastatin Calcium 40 MG 1700 04/13 1700 AC 04/15 PO 1558 Budesonide/ 2 PUF BID 04/13 2100 AC 04/15 Formoterol Fumarate INH 0824 Diphenoxylate HCl/ 5 MG TID 04/13 1446 AC 04/15 Atropine PO 1254 Glycerin/Mineral Oil 1 GENA TID PRN 04/13 1545 AC 04/14 TOP 2030 Heparin Sodium 5,000 UNIT Q8 04/13 2200 AC 04/15 (Porcine) SC 1255 Insulin Aspart 0 TIDAC 04/13 1700 AC 04/15 SC 1254 Lactated Ringer's 1,000 ML .[id number] 04/15 1345 AC 04/15 IV 04/16 0304 1545 Interpretation: EEG in wake state Background is 10 cps activity low voltahe 22-24 cps activity frontally Phitic stim: no abnormalities No focal or epileptiform activity Impression: Normal EEG in wake state
[2018-04-15 21:40] VITALS: BP 120/56
[2018-04-16 06:23] VITALS: BP 120/58
--- NOTE | 2018-04-16 07:04 | PN- Housestaff ---
See Addendum Subjective Follow-up For: Syncope Tele-Events Since Last Visit: Atrial fibrillation with heart rate in 70s Subjective: Has been seen and examined. She was resting comfortably. Does not offer any complaints. Explained the results of MRI. She was glad to know that there was no stroked areas. Patient was talking about her daughter not being well. And was for a little bit worried about her. She reported frequent trips to the bathroom for urination however does not have any increased frequency or urgency or dysuria. Afebrile without any white count. Review of Systems Constitutional: Reports: see HPI. Objective Last 24 Hrs of Vital Signs/I&O Vital Signs Date Time Temp Pulse Resp B/P B/P Pulse O2 O2 Flow FiO2 Mean Ox Delivery Rate 04/16 623 98.1 91 18 120/58 97 Room Air 04/15 2140 98.1 83 18 120/56 99 Room Air 04/15 2059 97 Room Air Room Air Intake & Output 04/16 0800 04/16 0000 04/15 1600 Intake Total 200 1000 500 Output Total 200 700 Balance 200 800 -200 Intake, IV 600 100 Intake, Oral 200 400 400 Output, Stool 200 200 Output, Urine 500 Patient 166 lb Weight Physical Exam General Appearance: Alert, Oriented X3, Cooperative Cardiovascular: Normal S1, Normal S2 Lungs: Clear to Auscultation, Normal Air Movement Abdomen: Normal Bowel Sounds, Soft Neurological: Normal Speech Current Medications: Current Medications Sig/Cirilo Start time Last Medication Dose Route Stop Time Status Admin Acetaminophen 650 MG Q6P PRN 04/13 1430 AC PO Albuterol Sulfate 3 ML Q4P PRN 04/13 2130 AC INH Albuterol Sulfate 2 PUF Q4P PRN 04/13 1500 AC INH Aspirin 81 MG DAILY 04/14 0900 AC 04/15 PO 0824 Atorvastatin Calcium 40 MG 1700 04/13 1700 AC 04/15 PO 1558 Budesonide/ 2 PUF BID 04/13 2100 AC 04/15 Formoterol Fumarate INH 2107 Diphenoxylate HCl/ 5 MG TID 04/13 1446 AC 04/15 Atropine PO 2106 Glycerin/Mineral Oil 1 GENA TID PRN 04/13 1545 AC 04/14 TOP 2030 Heparin Sodium 5,000 UNIT Q8 04/13 2200 AC 04/16 (Porcine) SC 0504 Insulin Aspart 0 TIDAC 04/13 1700 AC 04/15 SC 1254 Lactated Ringer's 1,000 ML .[id number] 04/15 1345 DC 04/15 IV 04/16 0304 1545 Last 24 Hrs of Lab/Cullen Results Last 24 Hrs of Labs/Mics: Laboratory Tests 04/16/18 0656: Sodium Pending, Potassium Pending, Chloride Pending, Carbon Dioxide Pending, Anion Gap Pending, BUN Pending, Creatinine Pending, BUN/Creatinine Ratio Pending Assessment/Plan Assessment: The patient is a 78-year-old female with past medical history of hypertension hyperlipidemia, COPD not on home oxygen, diverticulosis, multiple colonic polyps status post colectomy with ileostomy in January 2018 with reversal being planned in April 2018. #Patient has been admitted to for evaluation of syncopal episode after she found herself on the floor with contracture of her limbs, slurred speech, urinary incontinence. The carpet on which she was lying was full of feces and urine. At this point our differentials include TIA versus seizures versus orthostatic hypotension? -So far patient has been found to be orthostatic positive. -CT scan has been negative. -Echocardiogram was positive for mild aortic sclerosis, minimal mitral mitral insufficiency, [id number] tricuspid insufficiency without any Evidence of pulmonary hypertension. Ejection fraction is 60-65%. -There have been no cardiac events on telemetry. -Carotid Doppler showed small right-sided plaque with no stenosis left side was within normal limits. -MRI was only positive for mild chronic white matter microangiopathy -Patient also underwent EEG which was normal with no focal or epileptic activity - For now we are going to continue aspirin and statin. #She has history of hypertension currently on hydrochlorothiazide and losartan at home. Both of the medications are on hold blood pressure running adequately. #The patient had an ANTHONY of 3.9, she received 3 bags of normal saline and 1 pack of liter Ringer lactate today her 1.4 #Patient presented with metabolic acidosis. Her L- lactate was normal. She had an anion gap of 18. There is a possibility of being the D-lactate high with history of colectomy (short bowel syndrome). It is likely as well that she might have some ketosis secondary to poor oral intake for past several days. Anion gap has closed bicarb is improving #Patient has history of diabetes mellitus HbA1c of 5.4. He is currently on metformin and glipizide at home. We are maintaining her on insulin sliding scale. Blood sugars in adequate range. On discharge we need to reconsider her anti-diabetic regimen with HbA1c of 5.4. It is also possible her episode may be secondary to hypoglycemia. She remains full code Problem List: 1. Syncope 2. ANTHONY (acute kidney injury) Pain Ratin Pain Location: na Pain Goal: Pain 4 or less Pain Plan: prn Tomorrow's Labs & Rationales: none
--- NOTE | 2018-04-16 07:19 | Patient Discharge Instructions ---
Discharge Instructions General Discharge Information You were seen/treated for: Syncope Special Instructions: -Please follow-up with your primary care doctor within 1 week of discharge -Please follow-up with neurologist within 1 week of discharge -You have been started on aspirin and statin for stroke prevention -We are holding 2 blood pressure medications because your blood pressure was running in adequate range please consult your store worker and primary care doctor before restarting them -you will require monitoring of your blood pressure by your primary care doctor -Your HbA1c was 5.4, we are stopping 1 of her antidiabetic medication, please follow-up with your primary care doctor for monitoring of your blood sugar numbers -You will require monitoring off your kidney numbers on 04/19/2018, prescription for blood has been provided. Diet Recommended Diet: Heart Healthy Activity Activity Self Limited: Yes Acute Coronary Syndrome Inclusion Criteria At DC or during hospital stay patient has or had the following: ACS DIAGNOSIS No Discharge Core Measures Meds if any: Prescribed or Continued at Discharge Meds if any: NOT Prescribed or Continued at Discharge Congestive Heart Failure Inclusion Criteria At DC or during hospital stay patient has or had the following: CHF DIAGNOSIS No Discharge Core Measures Meds if any: Prescribed or Continued at Discharge Meds if any: NOT Prescribed or Continued at Discharge Cerebrovascular accident Inclusion Criteria At DC or during hospital stay patient has or had the following: CVA/TIA Diagnosis No Discharge Core Measures Meds if any: Prescribed or Continued at Discharge Meds if any: NOT Prescribed or Continued at Discharge Venous thromboembolism Inclusion Criteria VTE Diagnosis No VTE Type NONE VTE Confirmed by (Test) NONE Discharge Core Measures - Per Current guidelines, there needs to be overlap - treatment for the first 5 days of Warfarin therapy. - If discharged on Warfarin prior to 5 days of - overlap therapy, the patient will need to be - assessed for post discharge needs including - *Post discharge parental anticoagulation - *Warfarin and/or parental anticoagulation education - *Follow up date to check INR post discharge At least 5 days overlap therapy as Inpatient No Meds if any: Prescribed or Continued at Discharge Note: Overlap Therapy is Warfarin and Anticoagulant Meds if any: NOT Prescribed or Continued at Discharge
[2018-04-16] MEDS ORDERED: ASPIRIN81 M4 PO ×2 (08:07→18:10)
[2018-04-16] MEDS ORDERED: ATORVASTATIN CA40 M1 PO ×2 (08:07→18:10)
--- NOTE | 2018-04-16 14:47 | Discharge Summary ---
Visit Information Visit Dates Admission Date: 04/13/18 Discharge Date: 04/16/2018 Hospital Course Course Attending Physician: Adarsh Fraire MD Primary Care Physician: Nicolette Corrales MD Allergies: Coded Allergies: cyclobenzaprine (From FLEXERIL) (INCREASED PAIN 02/07/18) Discharge Instructions Medications at Discharge Discharge Medications: Stop taking the following medications: Glipizide (Glipizide) 5 MG TABLET ORAL DAILY Atorvastatin Calcium (Atorvastatin Calcium) 10 MG TABLET ORAL DAILY Losartan (Cozaar) 100 MG TABLET ORAL DAILY Hydrochlorothiazide (Hydrochlorothiazide) 12.5 MG TABLET ORAL DAILY Qty = 90 Continue taking these medications: Metformin HCl (Metformin HCl) 500 MG TABLET 1 Tablet ORAL DAILY Comments: NOT GIVEN THIS ADMISSION Vit C/Curtis AC/Lut/Copper/Znox (Preservision Lutein Softgel) 226-200-5 CAPSULE 2 Tablet Comments: NOT GIVEN IN HOSPITAL Fluticasone/Salmeterol (Advair 250-50 Diskus) 250 MCG-50 MCG/DOSE BLST.W.DEV 1 Puff Inhale through mouth TWICE DAILY Comments: Last Taken:04/16/16 GIVEN SYMBICORT Time:0900 Albuterol Sulfate (Albuterol Sulfate) 2.5 MG/3 ML (0.083 %) VIAL.NEB 1 Vial Inhale Solution as needed for SOB Comments: Last Taken:04/14/18 Time:0800 Cholestyramine/Aspartame (Cholestyramine Light Packet) 4 GRAM POWD.PACK 1 Packet ORAL TWICE DAILY as needed for ileostomy output Qty = 60 Instructions: as directed by , to help slow ileostomy output Comments: Last Taken:02/27/18 Time:0900 Diphenoxylate HCl/Atropine (Diphenoxylate-Atrop 2.5-0.025) 2.5 MG-0.025 MG TABLET 5 Milligram ORAL THREE TIMES DAILY Qty = 90 Instructions: as per , for high ileostomy output Comments: Last Taken:04/14/18 Time:1400 Thiamine HCl (B-1) 100 MG TABLET 1 Tablet ORAL DAILY Ergocalciferol (Vitamin D2) (Vitamin D2) 50,000 UNIT CAPSULE 1 Capsule ORAL Once a Week Vitamin E Mixed (Vitamin E) 100 UNIT TABLET 1 Tablet ORAL DAILY Acetaminophen (Acetaminophen) 500 MG TABLET 2 Tablet ORAL as needed for PAIN Ferrous Sulfate (Ferrous Sulfate) 325 MG (65 MG IRON) TABLET 1 Tablet ORAL DAILY Start taking the following new medications: Atorvastatin Calcium (Atorvastatin Calcium) 40 MG TABLET 1 Tablet ORAL DAILY Qty = 30 No Refills Comments: Last Taken:04/16/18 Time:1515 Aspirin (Aspirin*) 81 MG TAB.CHEW 1 Tablet ORAL DAILY Qty = 30 No Refills Comments: Last Taken:04/16/18 Time:0900
== END 2018-04-16 18:36 | disposition home health service (06) | DRG 683 ==
LOC: ERH 09:49 → ERHI 12:25 → 1NO 12:25 → ENRESERV 13:05 → ENTRNSPT 15:34 → EDTRNSPTSTS 16:04 → 1NO 16:19 → CMPTRNSPT 16:27 → 1NO 04-15 07:14 → ENPENDDIS 04-16 14:23 → ENTRNSPT 04-16 18:20 → 1NO 04-16 18:36 → EDTRNSPT 04-16 18:38 → EDTRNSPTSTS 04-16 18:38 → CMPTRNSPT 04-16 18:48
PROVIDERS: Emergency Medicine; Student in an Organized Health Care Education/Training Program
DX: N17.9 Acute kidney failure, unspecified (principal); E87.2 Acidosis; I10 Essential (primary) hypertension; E78.5 Hyperlipidemia, unspecified; J44.9 Chronic obstructive pulmonary disease, unspecified; Z93.2 Ileostomy status; E86.0 Dehydration; R55 Syncope and collapse; W19.XXXA Unspecified fall, initial encounter; Y92.009 Unspecified place in unspecified non-institutional (private) residence as the place of occurrence of the external cause; Z90.49 Acquired absence of other specified parts of digestive tract; Z96.649 Presence of unspecified artificial hip joint; Z79.84 Long term (current) use of oral hypoglycemic drugs; Z79.51 Long term (current) use of inhaled steroids; E11.9 Type 2 diabetes mellitus without complications; Z88.8 Allergy status to other drugs, medicaments and biological substances; I48.91 Unspecified atrial fibrillation
CPT/HCPCS: 1NSP; 70551; 86618; 36592; 82436; 93005; 93010; 93306; 96360; 97161-GP; J1644; J3490

== ENCOUNTER 2018-05-09 02:10 | Inpatient (IN) | payer OTHER ==
[~2018-05-09] VITALS: Ht 149.9 cm; Wt 56.3 kg
[~2018-05-09 02:10] MED LIST changes: +ACETAMINOPHEN500 M4 PO; +ASPIRIN81 M4 PO; +ATORVASTATIN CA40 M1 PO; +B-1100 MG PO; +FERROUS SULFAT325 M3 PO; +HYDROCHLOROTH12.5 M2 PO; +VITAMIN D250000 UNIT PO; +VITAMIN E100 UNI2 PO
--- NOTE | 2018-05-09 15:52 | Operative Report ---
Operative/Inv Procedure Report Surgery Date: 05/09/18 Name of Procedure: Reversal of ileostomy with partial small bowel resection Pre-Operative Diagnosis: Status post low anterior resection with diverting ileostomy Post-Operative Diagnosis: Same Estimated Blood Loss: less than 50ml Surgeon/Casino Change Attendant: Christopher Moser Jr., DO, APRN Anesthesia: general endotracheal tube, block Monitors: Per routine Urine Output: Adequate Drains: REINA drain in subcu tissue Specimens: Ileostomy Complications: None Condition: Good Operative Indication: This is an 78-year-old female status post low anterior resection with low pelvic anastomosis for benign adenoma not amenable to endoscopic removal. Because her anastomosis was quite low she had temporary diversion. She is now completely recovered and presents today for reversible of her ileostomy Operative/Procedure Note Note: On the day before her procedure she did a bowel prep which included clear liquid diet and oral antibiotics. No laxatives were given. On the day of her operation she presented to [facility] was taken operating room. She received IV antibiotics. She is placed in the supine position. She underwent induction of general anesthesia and placement of endotracheal tube. A Hamilton catheter was placed. The abdomen was prepped and draped in usual fashion. An elliptical incision was carried out around the ileostomy taken down to the fascia. This bowel was freed from the fascia and the under adhesions circumferentially. Next mesenteric window was made and a NEELAM stapler was used to transect the eighth apparently of the loop ileostomy just 2 cm from the end of the stoma. A mesenteric window was then made in the inferior limb of the ileostomy once again about 2 cm from the end and the NEELAM stapler was used to transect the bowel. The intervening mesentery was divided with a LigaSure device. Next to antimesenteric portions of the bowel were lined up. 2 enterotomies were potentially created by excising the corners of the staple line. A NEELAM stapler was used to create the anastomosis. One arm of the stapling device was placed in each limb of the bowel. This was a 80 mm blue loaded NEELAM stapler. Once the bowel palomares were appropriately approximated and the stapler was closed and then fired. Stapler was opened and retrieved. I inspected the lumen there was no bleeding. The common enterotomy was then closed with a TA stapler. The TA stapler was placed across about closed and fired. Small ring of tissue was excised. An anti-tension stitch was placed in the crotch of the staple line. There is a few bleeding sites at the TA staple line which were oversewn with interrupted 3-0 Vicryl sutures placed in a figure- of-eight fashion. The bowel was reduced back into the abdominal cavity. The fascia was closed in an up-and-down fashion with 0 PDS suture. The subcu tissues were then pulse lavaged with a liter and a half of sterile saline. A REINA drain was placed above the fascia but underneath the skin through a separate stab wound incision. This was secured to the skin with a nylon suture. I then closed the deep adipose tissue with interrupted Vicryl suture. The skin was then closed over the drain with the interrupted 3-0 Vicryl suture placed in a vertical mattress fashion. At this point the procedure was concluded. The abdomen was cleansed and dried. A sterile dressing was applied over the incision and the patient was extubated in the operating room. Patient tolerated the procedure well. She was taken to recovery area in good condition. At the end of the operation all needle sponges and instruments were accounted for. Discharge Disposition: Same Day Admissions
--- NOTE | 2018-05-09 15:56 | Admission Core Measures ---
Acute Coronary Syndrome (CM) ACS Core Measures Acute Coronary Syndrome Diagnosis No Congestive Heart Failure (NEW) CHF Core Measures Congestive Heart Failure Diagnosis No Cerebrovascular Accident CVA Core Measures CVA/TIA Diagnosis No Venous Thromboembolism VTE Core Allie (View Protocol) VTE Risk Factors Surgery No Mechanical VTE Prophylaxis d/t N/A MechProphylax Ordered No VTE Pharm Prophylaxis d/t NA PharmProphylax ordered Problem List As ranked by this Provider includes Assessment & Plan 1. Ileostomy status HOME MEDS Home Med List Acetaminophen 500 MG TABLET 2 TAB PO PRN PAIN (Reported) Albuterol Sulfate 2.5 MG/3 ML (0.083 %) VIAL.NEB 1 Vial INH/YOU PRN SOB ( Reported) Aspirin (Aspirin*) 81 MG TAB.CHEW 1 TAB PO DAILY HEART Atorvastatin Calcium 40 MG TABLET 1 TAB PO DAILY STROKE PREVENTION Cholestyramine/Aspartame (Cholestyramine Light Packet) 4 GRAM POWD.PACK 1 PAC PO BID PRN ileostomy output Diphenoxylate HCl/Atropine (Diphenoxylate-Atrop 2.5-0.025) 2.5 MG-0.025 MG TABLET 5 MG PO TID ileostomy output Ergocalciferol (Vitamin D2) (Vitamin D2) 50,000 UNIT CAPSULE 1 CAP PO QW SUPPLEMENT (Reported) Ferrous Sulfate 325 MG (65 MG IRON) TABLET 1 TAB PO DAILY SUPPLEMENT ( Reported) Fluticasone/Salmeterol (Advair 250-50 Diskus) 250 MCG-50 MCG/DOSE BLST.W.DEV 1 PUF INH BID SOB (Reported) Losartan (Cozaar) 100 MG TABLET 1 TAB PO DAILY HIGH BLOOD PRESSURE (Reported) Metformin HCl 500 MG TABLET 1 TAB PO DAILY DM (Reported) Thiamine HCl (B-1) 100 MG TABLET 1 TAB PO DAILY SUPPLEMENT (Reported) Vitamin E Mixed (Vitamin E) 100 UNIT TABLET 1 TAB PO DAILY SUPPLEMENT ( Reported)
--- NOTE | 2018-05-09 17:17 | PN- General Surgery ---
Subjective Subjective: Mild to moderate pain, controlled with IV pain medication currently in the PACU. She is coughing a bit. She does not feel short of breath. There is no nausea or vomiting. Objective Vital Signs and I&Os Intake & Output 05/09 1600 05/09 0800 05/09 0000 05/08 1600 05/08 0800 05/08 0000 Intake Total Output Total Balance Patient 149 lb Weight Vital signs stable, afebrile Physical Exam: Well-developed well-nourished no apparent distress. HEENT: Atraumatic, extraocular motion intact Neck: Supple, no lymphadenopathy Respiratory: No respiratory distress Abdomen: Mild distention, bloody staining noted at central abdominal incision dressing. Appropriate tenderness. REINA drain in place, a few cc of serosanguineous drainage noted in the drain. Neuro: Alert and oriented x3 Psych: Mood affect normal, normal memory normal judgment. Skin: Warm and dry, no rash on exposed skin Assessment/Plan Assessment/Plan Postop day #0 status post reversal of ileostomy with partial small bowel resection secondary to history of low anterior resection with diverting ileostomy ERAS protocol Perioperative antibiotics Clear liquid diet. Continue Hamilton. Continue IV fluids. Monitor I's and O's. Pain medication as needed, try to minimize narcotics. Out of bed, ambulate. Incentive spirometer. Heparin subcu for DVT prophylaxis. Alps for DVT prophylaxis Dressing change postop day 2 Follow a.m. labs Core Measures Venous Thromboembolism VTE Risk Factors Surgery No Mechanical VTE Prophylaxis d/t N/A MechProphylax Ordered No VTE Pharm Prophylaxis d/t NA PharmProphylax ordered
[2018-05-09 18:09] VITALS: BP 138/70
[2018-05-09 20:00] VITALS: BP 122/70
[2018-05-10] VITALS (7 sets, daily range): BP systolic 115–140; BP diastolic 64–70
--- NOTE | 2018-05-10 08:11 | PN- Student ---
Fely Gutierrez 05/10/18 0619: Subjective Subjective: Went to see pt this morning and she has no complaints at this time and states she feels great. Pt did have an incontinent, loose BM in bed last night. She tried to get up to the bathrooom but didn't make it. Pt has been tolerating clears well overnight and has denied any n/v, abdominal pain, fever,chills, sob, cp. Objective Objective: Intake & Output 05/10 1600 05/10 0800 05/10 0000 Intake Total 120 120 Output Total 135 170 Balance -15 -50 Intake, Oral 120 120 Number 1 Bowel Movements Output, 10 20 Drainage Output, Urine 125 150 Patient 124 lb Weight Gen: O&Ax3, laying up in bed, in no appparent distress Lungs: CTA throughout C/V: RRR, S1 and S2 normal Abd: hyperactive bs, soft, nontender, midline incisional dressing dry, intact, with some serosangious fluid under dressing, no drainage from dressing. ANALILIA drain in place with a few cc's of serosangious fluid, unchanged from yesterday LE: no edema, soft, notender Assessment/Plan Assessment: Pt is a 78 yo female POD 1 s/p ileostomy reversal with analilia drain x1 in place. Plan: -Pt did have loose BM last night, can d/c entereg -Pt is tolerating clears well and likely can advance diet to full this am -ALPS and heparin sq for DVT ppx -Can d/c the ngo this morning -Perioperative IV abx complete -Protonix for GI ppx -C/w losaratan today -C/w pain reigmen prn -encourage oob, ambulation, IS, po intake Signed, Cata Moore 05/10/18 9064: Assessment/Plan Assessment: PATIENT SEEN WITH PA PATIENT DOING WELL WITHOUT COMPLAINS ADVANCE PER KEIRA BARROSO
[2018-05-10 08:50] LABS: ABSOLUTE BASOPHIL COUNT 0 /CUMM (0.0-0.2); ABSOLUTE EOSINOPHIL COUNT 0 /CUMM (0.0-0.7); ABSOLUTE GRANULOCYTE CT 5.9 /CUMM (1.4-6.5); ABSOLUTE LYMPH COUNT 0.3 /CUMM (1.2-3.4); ABSOLUTE MONOCYTE COUNT 0.2 /CUMM (0.10-0.60); BASOPHIL % 0.2 % (0.0-2.0); EOSINOPHIL % 0 % (0-5); HEMATOCRIT 31.5 % (37-47); MEAN CORPUSCULAR HGB CONC 32.8 G/DL (33.0-37.0); MEAN CORPUSCULAR VOLUME 88.3 FL (81.0-99.0); MEAN PLATELET VOLUME 7.9 FL (7.4-10.4); PLATELET COUNT 183 /CUMM (130-400); RBC DISTRIBUTION WIDTH 17.1 % (11.5-14.5); RED BLOOD CELL CT 3.57 /CUMM (4.20-5.40); WHITE BLOOD CELL COUNT 6.4 /CUMM (4.8-10.8)
--- NOTE | 2018-05-10 09:07 | PN- General Surgery ---
Surgical Brief Attending Note Brief Attending Note: Patient is postop day 1 status post ileostomy reversal Patient already having bowel movement and looks well Advance diet and DC Hamilton catheter per ERAS protocol Possible discharge home later today or early tomorrow
[2018-05-10 10:19] LABS: GRANULOCYTE % 91.5 % (42.2-75.2)
--- NOTE | 2018-05-10 21:44 | Patient Discharge Instructions ---
Discharge Instructions General Discharge Information You were seen/treated for: Status post low anterior resection with diverting ileostomy You had these procedures: Surgery Date: 05/09/18 Name of Procedure: Reversal of ileostomy with partial small bowel resection Watch for these problems: fever>101.3, increased pain, redness/swelling/drainage, dizziness, shortness of breath, chest pains Call Surgeon to remove: Stitches No bath, but you may shower: Yes Other wound care: keep incisions clean & dry. stitches to be removed at follow up appointment, around post-op day#14 take tylenol and neurontin (gabapentin) for pain you were found to have a urinary tract infection, take the augmentin as directed Diet Continue normal diet: Yes Recommended Diet: Low Residue Activity Full Activity/No Limits: No Activity Self Limited: Yes Pounds, do NOT lift more than: 10 Other activity limits: no heavy lifting. no strenuous activity. Acute Coronary Syndrome Inclusion Criteria At DC or during hospital stay patient has or had the following: ACS DIAGNOSIS No Discharge Core Measures Meds if any: Prescribed or Continued at Discharge Meds if any: NOT Prescribed or Continued at Discharge Congestive Heart Failure Inclusion Criteria At DC or during hospital stay patient has or had the following: CHF DIAGNOSIS No Discharge Core Measures Meds if any: Prescribed or Continued at Discharge Meds if any: NOT Prescribed or Continued at Discharge Cerebrovascular accident Inclusion Criteria At DC or during hospital stay patient has or had the following: CVA/TIA Diagnosis No Discharge Core Measures Meds if any: Prescribed or Continued at Discharge Meds if any: NOT Prescribed or Continued at Discharge Venous thromboembolism Inclusion Criteria VTE Diagnosis No VTE Type NONE VTE Confirmed by (Test) NONE Discharge Core Measures - Per Current guidelines, there needs to be overlap - treatment for the first 5 days of Warfarin therapy. - If discharged on Warfarin prior to 5 days of - overlap therapy, the patient will need to be - assessed for post discharge needs including - *Post discharge parental anticoagulation - *Warfarin and/or parental anticoagulation education - *Follow up date to check INR post discharge At least 5 days overlap therapy as Inpatient No Meds if any: Prescribed or Continued at Discharge Note: Overlap Therapy is Warfarin and Anticoagulant Meds if any: NOT Prescribed or Continued at Discharge
--- NOTE | 2018-05-10 21:46 | Surg Short-stay <48hrs Dis Sum ---
Visit Information Visit Dates Admission Date: 05/09/18 Discharge Date: 05/11/18 Surgical Short Stay DC Summary Admission Diagnosis: Status post low anterior resection with diverting ileostomy Final Diagnosis: Status post low anterior resection with diverting ileostomy Procedure(s): Surgery Date: 05/09/18 Name of Procedure: Reversal of ileostomy with partial small bowel resection Summary/Significant Findings: Electively scheduled reversal of ileostomy with partial small bowel resection on 05/09/18 by , for history of s/p low anterior resection with diverting ileostomy. ERAS protocol followed post-operatively, with diet advancement as tolerated. She was discharge to home with home health services, when tolerating her diet. she was noted to have a UTI on initial UA from pre op, klebsiella, treated with augmentin ,pt asymptomatic. her REINA drain was pulled on 05/11/18 Condition at Discharge: stable Discharge Disposition: home health services Discharge instructions provided to patient/family: Yes Post discharge follow-up plan: one week follow up with Copies to: Nicolette Corrales MD
[2018-05-11 05:37] VITALS: BP 100/62
[2018-05-11 08:32] VITALS: BP 100/62
[2018-05-11 08:36] LABS: ABSOLUTE BASOPHIL COUNT 0 /CUMM (0.0-0.2); ABSOLUTE EOSINOPHIL COUNT 0.1 /CUMM (0.0-0.7); ABSOLUTE GRANULOCYTE CT 8.3 /CUMM (1.4-6.5); ABSOLUTE LYMPH COUNT 0.9 /CUMM (1.2-3.4); ABSOLUTE MONOCYTE COUNT 0.5 /CUMM (0.10-0.60); BASOPHIL % 0.1 % (0.0-2.0); GRANULOCYTE % 84.1 % (42.2-75.2); MEAN CORPUSCULAR HGB CONC 32.8 G/DL (33.0-37.0); MEAN CORPUSCULAR VOLUME 88.4 FL (81.0-99.0); MEAN PLATELET VOLUME 7.3 FL (7.4-10.4); PLATELET COUNT 252 /CUMM (130-400); RBC DISTRIBUTION WIDTH 16.9 % (11.5-14.5); RED BLOOD CELL CT 3.39 /CUMM (4.20-5.40)
[2018-05-11] MEDS ORDERED: GABAPENTIN100 M2 PO ×2 (09:22→12:00)
[2018-05-11] MEDS ORDERED: TRAMADOL HCL50 M1 PO (09:22)
[2018-05-11 09:29] LABS: WHITE BLOOD CELL COUNT 9.9 /CUMM (4.8-10.8)
--- NOTE | 2018-05-11 09:29 | PN- General Surgery ---
See Addendum Subjective Subjective: Pain well controlled, in good spirits, no acute events overnight, having frequent loose bowel movements, no fever no flulike illness no nausea no vomiting Objective Vital Signs and I&Os Vital Signs Date Time Temp Pulse Resp B/P B/P Pulse O2 O2 Flow FiO2 Mean Ox Delivery Rate 05/11 0832 98.5 74 22 100/62 05/11 0537 98.5 74 22 100/62 97 Room Air 05/10 2236 99.0 79 18 124/68 94 05/10 1422 98.2 60 20 130/64 92 Room Air 05/10 1151 98.2 79 20 140/70 99 Room Air 05/10 1056 93 Room Air Room Air Intake & Output 05/11 1600 05/11 0800 05/11 0000 05/10 1600 05/10 0800 05/10 0000 Intake Total 120 240 975 120 120 Output Total 15 23 560 135 170 Balance 105 217 415 -15 -50 Intake, IV 75 Intake, Oral 120 240 900 120 120 Number 4 3 1 Bowel Movements Output, 15 20 10 10 20 Drainage Output, Stool 3 Output, Urine 550 125 150 Patient 124 lb Weight Physical Exam: Well-developed well-nourished no apparent distress. HEENT: Atraumatic, extraocular motion intact Neck: Supple, no lymphadenopathy Respiratory: No respiratory distress Abdomen: Obese, mild distention, no tympany, appropriate lower abdominal tenderness, mild. Dressing with small amount of staining noted, dressing changed, incision site is clean dry and intact, no active draining, no signs of infection, dry sterile dressing applied. Positive normoactive bowel sounds. Extremities: trace edema, no calf pain Neuro: Alert and oriented x3 Psych: Mood affect normal, normal memory normal judgment. Skin: Warm and dry, no rash on exposed skin Results Last 48 Hours of Labs: Laboratory Tests 05/11 05/10 0755 0726 Chemistry Sodium (137 - 145 mmol/L) 135 L 137 Potassium (3.5 - 5.1 mmol/L) 4.2 4.3 Chloride (98 - 107 mmol/L) 107 108 H Carbon Dioxide (22 - 30 mmol/L) 18 L 14 L Anion Gap (5 - 16) 11 15 BUN (7 - 17 mg/dL) 28 H 28 H Creatinine (0.5 - 1.0 mg/dL) 1.5 H 1.7 H Estimated GFR (>60 ml/min) 33 L 29 L BUN/Creatinine Ratio (7 - 25 %) 18.7 16.5 Hematology CBC w Diff Pending NO MAN DIFF REQ WBC (4.8 - 10.8 /CUMM) Pending 6.4 RBC (4.20 - 5.40 /CUMM) Pending 3.57 L Hgb (12.0 - 16.0 G/DL) Pending 10.3 L Hct (37 - 47 %) Pending 31.5 L MCV (81.0 - 99.0 FL) Pending 88.3 MCH (27.0 - 31.0 PG) Pending 29.0 MCHC (33.0 - 37.0 G/DL) Pending 32.8 L RDW (11.5 - 14.5 %) Pending 17.1 H Plt Count (130 - 400 /CUMM) Pending 183 MPV (7.4 - 10.4 FL) Pending 7.9 Gran % (42.2 - 75.2 %) 91.5 H Lymphocytes % (20.5 - 51.1 %) 4.6 L Monocytes % (1.7 - 9.3 %) 3.7 Eosinophils % (0 - 5 %) 0 Basophils % (0.0 - 2.0 %) 0.2 Absolute Granulocytes (1.4 - 6.5 /CUMM) 5.9 Absolute Lymphocytes (1.2 - 3.4 /CUMM) 0.3 L Absolute Monocytes (0.10 - 0.60 /CUMM) 0.2 Absolute Eosinophils (0.0 - 0.7 /CUMM) 0 Absolute Basophils (0.0 - 0.2 /CUMM) 0 Assessment/Plan Assessment/Plan Postop day #2 status post reversal of ileostomy with partial small bowel resection secondary to history of low anterior resection with diverting ileostomy ERAS protocol, having bowel movements, DC Entereg Advanced to low residual diet Dressing change today, dry sterile dressing applied pain medication as needed, try to minimize narcotics. Out of bed, ambulate. Incentive spirometer. Heparin subcu for DVT prophylaxis. Alps for DVT prophylaxis Follow a.m. labs Continue REINA to self suction, likely discontinue upon discharge, will discuss with attending. Possible dc home today pending how she tolerates lrd, will dw attending Core Measures Venous Thromboembolism VTE Risk Factors Surgery No Mechanical VTE Prophylaxis d/t N/A MechProphylax Ordered No VTE Pharm Prophylaxis d/t NA PharmProphylax ordered
[2018-05-11] MEDS ORDERED: AMOX-CLAV 500-1 EACH PO (11:59)
== END 2018-05-11 15:24 | disposition home health service (06) | DRG 331 ==
LOC: 2NA 02:10 → SDA 02:10 → EDSTATUS 07:00 → STS 07:00 → SDA 07:00 → ENRESERV 15:48 → ENTRNSPT 17:23 → EDTRNSPTSTS 17:27 → 2NA 17:45 → CMPTRNSPT 17:53 → ENPENDDIS 05-11 12:06 → 2NA 05-11 15:24
PROVIDERS: Nurse Practitioner; Physician Assistant
PROC: 0DBB0ZZ Excision of Ileum, Open Approach (ICD-10-PCS; principal; 2018-05-09)
PROC: 3E0T3BZ Introduction of Anesthetic Agent into Peripheral Nerves and Plexi, Percutaneous Approach (ICD-10-PCS; 2018-05-09)
DX: Z43.2 Encounter for attention to ileostomy (principal); Z86.010 Personal history of colon polyps; E11.9 Type 2 diabetes mellitus without complications; E78.5 Hyperlipidemia, unspecified; I10 Essential (primary) hypertension; J45.909 Unspecified asthma, uncomplicated; Z90.710 Acquired absence of both cervix and uterus; Z90.49 Acquired absence of other specified parts of digestive tract; Z79.84 Long term (current) use of oral hypoglycemic drugs
CPT/HCPCS: 2NAP; 36415; 36592; 82436; 87086; 88304; 97116-GO; 97161-GP; J0131; J0690; J1100; J1644; J1815; J1885; J2405; J3490

== ENCOUNTER 2018-05-25 14:32 | Inpatient (IN) | payer OTHER ==
[~2018-05-25] VITALS: Ht 149.9 cm; Wt 73.5 kg
[~2018-05-25 14:32] MED LIST changes: +GABAPENTIN100 M2 PO; +TRAMADOL HCL50 M1 PO
[2018-05-25 15:05] LABS: ABSOLUTE BASOPHIL COUNT 0.1 /CUMM (0.0-0.2); ABSOLUTE EOSINOPHIL COUNT 0.3 /CUMM (0.0-0.7); ABSOLUTE GRANULOCYTE CT 3.8 /CUMM (1.4-6.5); ABSOLUTE LYMPH COUNT 0.7 /CUMM (1.2-3.4); ABSOLUTE MONOCYTE COUNT 0.3 /CUMM (0.10-0.60); BASOPHIL % 1.2 % (0.0-2.0); EOSINOPHIL % 5.1 % (0-5); GRANULOCYTE % 73.1 % (42.2-75.2); MEAN CORPUSCULAR HGB 29.3 PG (27.0-31.0); MEAN CORPUSCULAR HGB CONC 32.4 G/DL (33.0-37.0); MEAN CORPUSCULAR VOLUME 90.6 FL (81.0-99.0); MEAN PLATELET VOLUME 7.6 FL (7.4-10.4); PLATELET COUNT 212 /CUMM (130-400); RBC DISTRIBUTION WIDTH 18.3 % (11.5-14.5); RED BLOOD CELL CT 3.19 /CUMM (4.20-5.40); WHITE BLOOD CELL COUNT 5.2 /CUMM (4.8-10.8)
--- NOTE | 2018-05-25 16:28 | ED GENERAL ADULT ---
History of Present Illness General Chief Complaint: General Adult Stated Complaint: ? SEIZURE Allergies Coded Allergies: cyclobenzaprine (From FLEXERIL) (INCREASED PAIN 02/07/18) Reconcile Medications Acetaminophen 500 MG TABLET 2 TAB PO PRN PAIN (Reported) Albuterol Sulfate 2.5 MG/3 ML (0.083 %) VIAL.NEB 1 Vial INH/YOU PRN SOB ( Reported) Aspirin (Aspirin*) 81 MG TAB.CHEW 1 TAB PO DAILY HEART . Atorvastatin Calcium 40 MG TABLET 1 TAB PO DAILY STROKE PREVENTION . Ergocalciferol (Vitamin D2) (Vitamin D2) 50,000 UNIT CAPSULE 1 CAP PO QW SUPPLEMENT (Reported) Ferrous Sulfate 325 MG (65 MG IRON) TABLET 1 TAB PO DAILY SUPPLEMENT ( Reported) Fluticasone/Salmeterol (Advair 250-50 Diskus) 250 MCG-50 MCG/DOSE BLST.W.DEV 1 PUF INH BID SOB (Reported) Hydrochlorothiazide 12.5 MG CAPSULE 1 CAP PO DAILY DIURETIC (Reported) Losartan (Cozaar) 100 MG TABLET 1 TAB PO DAILY HIGH BLOOD PRESSURE (Reported) Metformin HCl 500 MG TABLET 1 TAB PO TID DM (Reported) Thiamine HCl (B-1) 100 MG TABLET 1 TAB PO DAILY SUPPLEMENT (Reported) Vit C/Curtis AC/Lut/Copper/Znox (Preservision Lutein Softgel) 226-200-5 CAPSULE 2 TAB SUPPLEMENT (Reported) Vitamin E Mixed (Vitamin E) 100 UNIT TABLET 1 TAB PO DAILY SUPPLEMENT ( Reported) Triage Note: PT TO ED WITH C/O QUESTIONABLE SEIZURE ACTIVITY 2 DAYS AGO. STATES SHE WOKE IN MIDDLE OF NIGHT AND COULDNT MOVE OR TALK, ALSO HAD UPPER LIP TINGLING. EPISODE WAS UNWITNESSED. WAS ALSO INCONTINENT OF URINE. PT SYMPTOM FREE CURRENTLY, REFERRED TO ED BY PCP. STATES HAD QUESTIONABLE SEIZURE 2 MONTHS AGO AND WAS HOSPITALIZED FOR 4 DAYS. [place] NEGATIVE AT TRIAGE. (Nurys VICKERS,Rusty) General Source: patient Exam Limitations: no limitations Vital Signs & Intake/Output Vital Signs & Intake/Output Vital Signs Date Time Temp Pulse Resp B/P B/P Pulse O2 O2 Flow FiO2 Mean Ox Delivery Rate 05/25 1929 98.0 83 18 151/67 99 Room Air 05/25 1810 97.9 82 16 146/68 98 Room Air 05/25 1617 967.3 86 16 144/72 97 Room Air 05/25 1450 93 Room Air 05/25 1443 97.8 91 17 142/60 Triage Nurses Notes Reviewed? yes HPI: Patient is an 78-year-old female with a past medical history non-insulin- dependent diabetes mellitus, hypertension, diverticulitis, status post colostomy reversal(May 08), who presented to the emergency department with a complaint of SEIZURE 2 days ago. The patient reports that on night at 7 PM she felt that her upper lip was taken. She went to bed symptom free. At 2 AM she woke up feeling tired down and her legs twisted. She also reports shaking and freezing of, and felt that somebody was sitting on her. She could not talk and try to dial the phone number of her daughter but she could not. She tried to get up to go to the bathroom to pass urine but she could not so she had urinary incontinence. She does not report tongue bite/fecal incontinence/no after effects. The patient was in the hospital 2 months ago for 4 days prior to being evaluated for a seizure. She underwent a complete workup and everything was negative. 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 Yes (Monika Sloan MD) Review of Systems Review of Systems Constitutional: Reports: weakness. Denies: no symptoms, see HPI, chills, diaphoresis, fever, malaise, unexplained weight loss. EENTM: Reports: no symptoms. Denies: blurred vision, double vision, visual changes, eye pain, eye drainage, eye tearing, icterus, ear discharge, ear pain, ear redness, hearing changes, nasal congestion, epistaxis, nasal pain, throat pain, throat swelling, mouth pain, tooth pain. Respiratory: Reports: no symptoms. Denies: cough, hemoptysis, orthopnea, short of breath, sputum production, stridor, wheezing. Cardiovascular: Reports: no symptoms. Denies: chest pain, edema, orthopena, palpitations, peripheral edema, syncope. (Monika Sloan MD) Physical Exam Physical Exam General Appearance: well developed/nourished, no apparent distress, alert, awake Head: atraumatic, normal appearance Eyes: Bilateral: normal appearance, PERRL, EOMI. Ears, Nose, Throat: normal pharynx, normal ENT inspection, hearing grossly normal Neck: normal inspection, supple Respiratory: normal breath sounds, chest non-tender, lungs clear Cardiovascular: regular rate/rhythm, edema, b/l pitting edema Peripheral Pulses: 4+ radial (R), 4+ radial (L) Gastrointestinal: normal bowel sounds, soft, non-tender Core Measures ACS in differential dx? No CVA/TIA Diagnosis: No Sepsis Present: No Sepsis Focused Exam Completed? Yes (Monika Sloan MD) Progress Differential Diagnoses I considered the following diagnoses in my evaluation of the patient: seizure? Plan of Care: Orders Procedure Date/time Status Heart Healthy Diet 05/26 B Active Consistent Carbohydrate 1 05/25 D Complete Patient Data 05/25 1927 Active ED Holding Orders 05/25 1919 Active Admit to inpatient 05/25 1919 Active Vital Signs 05/25 1919 Active Code Status 05/25 1919 Active Intake & Output 05/25 1619 Active EKG 05/25 1446 Active URINALYSIS 05/25 1441 Complete COMPREHENSIVE METABOLIC PANEL 05/25 144 Complete CBC WITHOUT DIFFERENTIAL 05/25 144 Complete Laboratory Tests 05/25/18 1813: Urinalysis LIGHT H, Urine Color YEL, Urine Clarity CLEAR, Urine pH 6.0, Ur Specific [place] 1.020, Urine Protein NEG, Urine Ketones NEG, Urine Nitrite NEG, Urine Bilirubin NEG, Urine Urobilinogen 0.2, Ur Leukocyte Esterase SMALL H, Ur Microscopic SEDIMENT EXAMINED, Urine WBC 15-25 H, Ur Epithelial Cells MOD H, Urine Bacteria FEW H, Hyaline Casts RARE H, Urine Mucus RARE, Urine Hemoglobin NEG, Urine Glucose NEG 05/25/18 1451: Anion Gap 8, Estimated GFR 48 L, BUN/Creatinine Ratio 11.8, Glucose 145 H, Calcium 8.5, Total Bilirubin 0.2, AST 22, ALT 26, Alkaline Phosphatase 92, Total Protein 5.4 L, Albumin 3.1 L, Globulin 2.3, Albumin/Globulin Ratio 1.3, CBC w Diff NO MAN DIFF REQ, RBC 3.19 L, MCV 90.6, MCH 29.3, MCHC 32.4 L, RDW 18.3 H , MPV 7.6, Gran % 73.1, Lymphocytes % 14.4 L, Monocytes % 6.2, Eosinophils % 5.1 H, Basophils % 1.2, Absolute Granulocytes 3.8, Absolute Lymphocytes 0.7 L, Absolute Monocytes 0.3, Absolute Eosinophils 0.3, Absolute Basophils 0.1 note that I did not evaluate this patient- RUSTY GUILLEN PA-C (Rusty Gibbons) Initial ED EKG: none (Monika Sloan MD) Departure Departure Condition: Stable Referrals: Nicolette Corrales MD (PCP/Family) Departure Forms: Customer Survey General Discharge Information (Rusty Gibbons) Departure Disposition: STILL A PATIENT Clinical Impression Primary Impression: Seizure (Monika Sloan MD) Critical Care Note Critical Care Note Critical Care Time: non-applicable (Monika Sloan MD) ED Attending Observation Initial Observation Note: I have seen and personally examined DAY LOMAS on 05/25/18 at 1736. I agree with the current emergency department documentation. The disposition (admission or discharge) is uncertain at this time, she needs a period of observation for the following reason(s): seizures? The ED Nurse caring for this patient has been personally informed as to what the patient is being observed for. (Monika Sloan MD)
[2018-05-25] MEDS ORDERED: HYDROCHLOROTH12.5 M3 PO (16:51)
--- NOTE | 2018-05-25 18:01 | CT SCAN REPORT ---
EXAMINATION: CT HEAD WITHOUT CONTRAST CLINICAL INFORMATION: Status post seizure. COMPARISON: None TECHNIQUE: Contiguous axial imaging was performed from the skull base to vertex without intravenous administration of contrast. DLP: 620 mGy-cm FINDINGS: There is no evidence of acute intracranial hemorrhage or territorial infarction. No abnormal mass effect or midline shift is seen. Tucker to white matter differentiation is well preserved. No extra-axial fluid collections are identified. The ventricles are normal in size. There is no abnormal attenuation within the brain parenchyma. The osseous structures and soft tissues are normal. The mastoid air cells and visualized portions of the paranasal sinuses are well aerated. IMPRESSION: No acute intracranial process seen.
--- NOTE | 2018-05-25 20:05 | ED GENERAL ADULT ---
History of Present Illness General Chief Complaint: General Adult Stated Complaint: SEIZURE Source: patient Exam Limitations: no limitations Vital Signs & Intake/Output Vital Signs & Intake/Output Vital Signs Date Time Temp Pulse Resp B/P B/P Pulse O2 O2 Flow FiO2 Mean Ox Delivery Rate 05/25 1929 98.0 83 18 151/67 99 Room Air 05/25 1810 97.9 82 16 146/68 98 Room Air 05/25 1617 967.3 86 16 144/72 97 Room Air 05/25 1450 93 Room Air 05/25 1443 97.8 91 17 142/60 Allergies Coded Allergies: cyclobenzaprine (From FLEXERIL) (INCREASED PAIN 02/07/18) Reconcile Medications Acetaminophen 500 MG TABLET 2 TAB PO PRN PAIN (Reported) Albuterol Sulfate 2.5 MG/3 ML (0.083 %) VIAL.NEB 1 Vial INH/YOU PRN SOB ( Reported) Aspirin (Aspirin*) 81 MG TAB.CHEW 1 TAB PO DAILY HEART . Atorvastatin Calcium 40 MG TABLET 1 TAB PO DAILY STROKE PREVENTION . Ergocalciferol (Vitamin D2) (Vitamin D2) 50,000 UNIT CAPSULE 1 CAP PO QW SUPPLEMENT (Reported) Ferrous Sulfate 325 MG (65 MG IRON) TABLET 1 TAB PO DAILY SUPPLEMENT ( Reported) Fluticasone/Salmeterol (Advair 250-50 Diskus) 250 MCG-50 MCG/DOSE BLST.W.DEV 1 PUF INH BID SOB (Reported) Hydrochlorothiazide 12.5 MG CAPSULE 1 CAP PO DAILY DIURETIC (Reported) Losartan (Cozaar) 100 MG TABLET 1 TAB PO DAILY HIGH BLOOD PRESSURE (Reported) Metformin HCl 500 MG TABLET 1 TAB PO TID DM (Reported) Thiamine HCl (B-1) 100 MG TABLET 1 TAB PO DAILY SUPPLEMENT (Reported) Vit C/Curtis AC/Lut/Copper/Znox (Preservision Lutein Softgel) 226-200-5 CAPSULE 2 TAB SUPPLEMENT (Reported) Vitamin E Mixed (Vitamin E) 100 UNIT TABLET 1 TAB PO DAILY SUPPLEMENT ( Reported) Triage Note: PT TO ED WITH C/O QUESTIONABLE SEIZURE ACTIVITY 2 DAYS AGO. STATES SHE WOKE IN MIDDLE OF NIGHT AND COULDNT MOVE OR TALK, ALSO HAD UPPER LIP TINGLING. EPISODE WAS UNWITNESSED. WAS ALSO INCONTINENT OF URINE. PT SYMPTOM FREE CURRENTLY, REFERRED TO ED BY PCP. STATES HAD QUESTIONABLE SEIZURE 2 MONTHS AGO AND WAS HOSPITALIZED FOR 4 DAYS. [place] NEGATIVE AT TRIAGE. Triage Nurses Notes Reviewed? yes HPI: Patient is an 78-year-old female with a past medical history non-insulin- dependent diabetes mellitus, hypertension, diverticulitis, status post colostomy reversal(May 08), who presented to the emergency department with a complaint of SEIZURE 2 days ago. The patient reports that on night at 7 PM she felt that her upper lip was taken. She went to bed symptom free. At 2 AM she woke up feeling tired down and her legs twisted. She also reports shaking and freezing of, and felt that somebody was sitting on her. She could not talk and try to dial the phone number of her daughter but she could not. She tried to get up to go to the bathroom to pass urine but she could not so she had urinary incontinence. She does not report tongue bite/fecal incontinence/no after effects. The patient was in the hospital 2 months ago for 4 days prior to being evaluated for a seizure. She underwent a complete workup and everything was negative. (Monika Sloan MD) Past History Travel History Traveled to [place] past 21 day No Medical History Any Pertinent Medical History? see below for history Neurological: seizure EENT: NONE Cardiovascular: hypertension Respiratory: asthma, COPD Gastrointestinal: diverticulitis, ileostomy reversal status colonic polyp Hepatic: NONE Renal: NONE Musculoskeletal: NONE Psychiatric: NONE Endocrine: diabetes Blood Disorders: anemia Cancer(s): NONE [employer]/Reproductive: NONE History of MRSA: No History of VRE: No History of CDIFF: No Surgical History Surgical History: breast biopsy, cholecystectomy, hip replacement, 02/08/2018: robotic LAR with DLI for unresectable sigmoid polyp (benign) Psychosocial History Where do you live Home Who do you live with Patient/Self Services at Home None What is your primary language Mozambican Tobacco Use: Never used ETOH Use: denies use Illicit Drug Use: denies illicit drug use Family History Family History, If Any: Relation not specified for: Epilepsy in mother Hx Contributory? Yes (Monika Sloan MD) Review of Systems Review of Systems Constitutional: Reports: no symptoms. Denies: chills, diaphoresis, fever, malaise, weakness, unexplained weight loss. EENTM: Reports: no symptoms. Denies: blurred vision, double vision, visual changes, eye pain, eye drainage, eye tearing, icterus, ear discharge, ear pain, ear redness, hearing changes, nasal congestion, epistaxis, nasal pain, throat pain, throat swelling, mouth pain, tooth pain. Respiratory: Reports: see HPI. Denies: cough, hemoptysis, orthopnea, short of breath, sputum production, stridor, wheezing. Cardiovascular: Denies: see HPI, chest pain, edema, orthopena, palpitations, peripheral edema, syncope. GI: Reports: see HPI. Denies: abdominal pain, bloating, constipation, diarrhea, distention, bowel incontinence, melena, nausea, bloody stool, changes in stool, vomiting, steatorrhea. Genitourinary: Reports: no symptoms. Denies: discharge, dysuria, frequency, hematuria, hesitation, nocturia, pain, urgency. Musculoskeletal: Reports: no symptoms. Denies: back pain, gout, joint pain, joint swelling, muscle pain, muscle stiffness, neck pain. Skin: Reports: no symptoms. Denies: cysts, change in skin color, change in hair/nails , dryness, erythema, jaundice, lesions, lymphangitis, lumps, moles, rash. Neurological/Psychological: Reports: tingling. Denies: no symptoms, see HPI, anxiety, ataxia, cognitive dysfunction, confusion, depressed, dementia, emotional problems, headache, numbness, paresthesia, pre-existing deficit, petit mal seizures, tremors, tonic- clonic seizures, unable to move lower ext, unable to move upper ext, weakness, other. Hematologic/Endocrine: Reports: no symptoms. Denies: bruising, bleeding, polyuria, polydipsia, other. (Nathalia SAINI,[facility]) Physical Exam Physical Exam General Appearance: well developed/nourished, no apparent distress, alert, awake Head: atraumatic, normal appearance Eyes: Bilateral: normal appearance, PERRL, EOMI. 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 No CVA/TIA Diagnosis: No Sepsis Present: No Sepsis Focused Exam Completed? Yes (Monika Sloan MD) Progress Differential Diagnoses I considered the following diagnoses in my evaluation of the patient: seizures Plan of Care: Orders Procedure Date/time Status Heart Healthy Diet 05/26 B Active Consistent Carbohydrate 1 05/25 D Complete Patient Data 05/25 1927 Active ED Holding Orders 05/25 1919 Active Admit to inpatient 05/25 1919 Active Vital Signs 05/25 1919 Active Code Status 05/25 1919 Active Intake & Output 05/25 1619 Active EKG 05/25 1446 Active URINALYSIS 05/25 1441 Complete COMPREHENSIVE METABOLIC PANEL 05/25 1441 Complete CBC WITHOUT DIFFERENTIAL 05/25 1441 Complete Laboratory Tests 05/25/18 1813: Urinalysis LIGHT H, Urine Color YEL, Urine Clarity CLEAR, Urine pH 6.0, Ur Specific [place] 1.020, Urine Protein NEG, Urine Ketones NEG, Urine Nitrite NEG, Urine Bilirubin NEG, Urine Urobilinogen 0.2, Ur Leukocyte Esterase SMALL H, Ur Microscopic SEDIMENT EXAMINED, Urine WBC 15-25 H, Ur Epithelial Cells MOD H, Urine Bacteria FEW H, Hyaline Casts RARE H, Urine Mucus RARE, Urine Hemoglobin NEG, Urine Glucose NEG 05/25/18 1451: Anion Gap 8, Estimated GFR 48 L, BUN/Creatinine Ratio 11.8, Glucose 145 H, Calcium 8.5, Total Bilirubin 0.2, AST 22, ALT 26, Alkaline Phosphatase 92, Total Protein 5.4 L, Albumin 3.1 L, Globulin 2.3, Albumin/Globulin Ratio 1.3, CBC w Diff NO MAN DIFF REQ, RBC 3.19 L, MCV 90.6, MCH 29.3, MCHC 32.4 L, RDW 18.3 H , MPV 7.6, Gran % 73.1, Lymphocytes % 14.4 L, Monocytes % 6.2, Eosinophils % 5.1 H, Basophils % 1.2, Absolute Granulocytes 3.8, Absolute Lymphocytes 0.7 L, Absolute Monocytes 0.3, Absolute Eosinophils 0.3, Absolute Basophils 0.1 Initial ED EKG: normal sinus rhythm (Monika Sloan MD) Differential Diagnoses I considered the following diagnoses in my evaluation of the patient: [Seizure, TIA, conversion reaction, hypoglycemia] (Andrew Valentin DO) Departure Departure Disposition: STILL A PATIENT Condition: Stable Clinical Impression Primary Impression: Seizure Referrals: Nicolette Corrales MD (PCP/Family) Departure Forms: Customer Survey General Discharge Information (Monika Sloan MD) Admission Note Spoke With: Phillip Bajwa MD Documentation of Exam: Documentation of any treatments & extenuating circumstances including Concerns Regarding Discharge (functional status, medication knowledge or non-compliance, living conditions, etc.) that warrant an admission rather than observation: [The patient needs admission for neurology consultation, telemetry monitoring, neuro checks every 6 hours,] I saw and personally examined the patient and I agree with the graduate intern's evaluation. 78-year-old female who woke at 2 AM on Sunday morning, she was unable to move arms and legs and unable to speak. She had an episode of urinary incontinence, the symptoms lasted hours and ultimately improved she was subsequently able to walk and get help. Now she is asymptomatic. Neurological exam is normal. I discussed the case with Dr. Luciano who agreed with the plan of care to admit the patient to telemetry, neurology consultation. (Andrew Valentin DO) Critical Care Note Critical Care Note Critical Care Time: non-applicable (Monika Sloan MD) ED Attending Observation Initial Observation Note: I have seen and personally examined DAY LOMAS on 05/25/18 at 2001. I agree with the current emergency department documentation. The disposition (admission or discharge) is uncertain at this time, she needs a period of observation for the following reason(s): seizures The ED Nurse caring for this patient has been personally informed as to what the patient is being observed for. (Monika Sloan MD)
--- NOTE | 2018-05-25 20:13 | History & Physical ---
Bassam Amezcua 05/25/18 2013: General Information and HPI MD Statement: I have seen and personally examined DAY LOMAS and documented this H&P. The patient is a 78 year old F who presented with a patient stated chief complaint of seizure like activity. Source of Information: patient, family History of Present Illness: The patient is a 78-year-old female with past medical history of hypertension, hyperlipidemia, COPD not on home oxygen, diverticulosis, multiple colonic polyps status post colectomy with ileostomy in January 2018 with reversal in April 2018. Patient presented to the ED for a recent episode of seizure like acitivty this past Sunday. Patient was in her usual state of health until Sunday at 2AM where she stated she felt "twisted in the legs, arms and mouth." Patient stated she had a phone in her hand and could not properly dial or speak. She had urinary incontinence and was in a pool of urine in her bed. Patient claims she noted her body shaking but was able to put her feet over the bed, walked to bathroom and back and the episiode went away. She states this episode lasted approximately 5- 20 minutes. Patient denied any loss of conciousness, headaches, dizziness, chest pain, palpitations at that time or at admission. Of note, patient lives alone and denies any recent falls. She has a family history of epilepsy in her mother who at the age of 32 due to asphyxiation. Patient quit smoking 25 years ago and denies significant alcohol use. Patient recently discharged 04/16/18 for a seizure like episode that was ruled out for stroke. At that time, CT scan without IV contrast was negative. MRI was only positive for mild chronic white matter microangiopathy. Echocardiogram was positive for mild aortic sclerosis, mild minimal mitral insufficiency, mild to moderate tricuspid insufficiency without any evidence of pulmonary hypertension with ejection fraction of 60-65%. Carotid Doppler showed small right-sided plaque with no stenosis by left side was within normal limits. She also underwent EEG which was negative without any focal or epileptic activity. Patient was discharged on aspirin and statin but no anti-epileptic medication and advised to follow up with neurology. Past History Travel History Traveled to [place] past 21 day No Medical History Neurological: seizure EENT: NONE Cardiovascular: hypertension Respiratory: asthma, COPD Gastrointestinal: diverticulitis, ileostomy reversal status colonic polyp Hepatic: NONE Renal: NONE Musculoskeletal: NONE Psychiatric: NONE Endocrine: diabetes Blood Disorders: anemia Cancer(s): NONE SLAB OFF MILL TENDER/Reproductive: NONE History of MRSA: No History of VRE: No History of CDIFF: No Surgical History Surgical History: breast biopsy, cholecystectomy, hip replacement, 02/08/2018: robotic LAR with DLI for unresectable sigmoid polyp (benign) Past Family/Social History Family History Relations & Conditions if any Relation not specified for: Epilepsy in mother Psychosocial History Where do you live? Home Who Do You Live With? self Services at Home: None Primary Language: Welsh ETOH Use: denies use Illicit Drug Use: denies illicit drug use Functional Ability ADLs Independent: dressing, eating, toileting, bathing. Ambulation: independent Review of Systems Review of Systems Constitutional: Denies: see HPI. Exam & Diagnostic Data Last 24 Hrs of Vital Signs/I&O Vital Signs Date Time Temp Pulse Resp B/P B/P Pulse O2 O2 Flow FiO2 Mean Ox Delivery Rate 05/25 1929 98.0 83 18 151/67 99 Room Air 05/25 1810 97.9 82 16 146/68 98 Room Air 05/25 1617 967.3 86 16 144/72 97 Room Air 05/25 1450 93 Room Air 05/25 1443 97.8 91 17 142/60 Physical Exam General Appearance Alert, Oriented X3, Cooperative Assessment/Plan Assessment: Patient is a 78 year old female with pmh of DM, HTN, Diverticulitis s/p colostomy reversal (05/08) who presented to ED with complaint of probable seizure 2 days ago. Patient recently discharged 04/16/18 for a syncopal episode. At that time, CT scan without IV contrast was negative. MRI was only positive for mild chronic white matter microangiopathy. Echocardiogram was positive for mild aortic sclerosis, mild minimal mitral insufficiency, mild to moderate tricuspid insufficiency without any evidence of pulmonary hypertension with ejection fraction of 60-65%. Carotid Doppler showed small right-sided plaque with no stenosis by left side was within normal limits. She also underwent EEG which was negative without any focal or epileptic activity. Patient was discharged on aspirin and statin but no anti-epileptic medication and advised to follow up with neurolgoy. Current CT of head negative for any acute intracranial pathology. EMERGENCY DEPARTMENT: Vitals:97.8, 91, 17, 142/60, 93% RA Labs: WBC: 5.2, Hgb: 9.4, Hct: 29.0, Plt: 212 Chemistry: 137 NA, 2.8 K, Cl 105, 25 CO2, Cr: 1.1, BUN 13, EGFR: [address]: No acute intracranial process seen. Problem List: 1. New Onset Seizure Disorder 2. Rule out TIA/CVA 3. Hypertension 4. Diabetes Mellitus 5. Hyperlipidemia 6. H/O COPD 7. Small bowel resection status post reversal of ileostomy 04/2018 PLAN: * Admit to telemetry * Anti-seizure medication - Keppra 500 loading dose; 500 BID thereafter * Neurology Consultation * Q4 Neuro Checks * Continue aspirin and statin * TRC/Nebs as needed * NoVoLog Sliding Scale + Fingersticks TID @ bedtime As Ranked By This Provider Problem List: 1. ANTHONY (acute kidney injury) 2. Seizure Core Measures/Misc (07/08) Acute Coronary Syndrome ACS Diagnosis: No Congestive Heart Failure Congestive Heart Failure Diagnosis No Cerebrovascular Accident CVA/TIA Diagnosis: No VTE (View Protocol) VTE Risk Factors Age>40 No Mechanical VTE Prophylaxis d/t N/A MechProphylax Ordered No VTE Pharm Prophylaxis d/t NA PharmProphylax ordered Sepsis (View protocol) Sepsis Present: No If YES complete Sepsis Event Note If YES complete Sepsis Event Note Kelly Nichole 05/25/18 2322: Core Measures/Misc (07/08) Sepsis (View protocol) If YES complete Sepsis Event Note If YES complete Sepsis Event Note Resident Review Statement Resident Statement: examined this patient, discussed with direct marketing intern, agreed with direct marketing intern Other Findings: Patient is 78-year-old female with past medical history significant for hypertension, TIA/seizure in March 2018, diabetes, status post reversal of ileostomy with partial small bowel removal, chronic anemia, she was brought in by family with a chief complaint of seizures at home. Patient's daughter was present at bedside, and reported that patient had a seizure at 2 AM on 05/23, patient states that on , she woke up at 2 AM and found that her body was twisted, she was incontinent of urine and could not talk for a while. She tried to grab the phone to make a phone call but her body was shaking and she could not grab the phone. Patient got up and went to bathroom while she was still shaking and reports that when she got back, she was back to her baseline. Patient reports that this episode lasted around 510 minutes. She had a similar episode experienced in March 2018, at that time as well she woke up in the middle of the night and found that her body was twisted, she had fallen from couch to the floor, and she could not talk/walk. At that time patient was incontinent of urine as well. She lives alone at home and reports of no recent falls. Of note, her mother had epilepsy disorder and at the age of 32 by asphyxia caused by status epilepticus. Labs and vitals as above CT head done in ER: No acute intracranial process. Problem list #1. New onset seizure disorder #2. History of TIA, questionable TIA #3. History of COPD #4. Diabetes #5. History of chronic anemia #6. Small bowel resection status post reversal of ileostomy in April 2018. Assessment and plan We will admit the patient to telemetry. We will start the patient on antiseizure medication since patient has had 2 unprovoked seizures while asleep, will start with 500 mg Keppra loading dose today, and 500 twice daily from tomorrow. Neurology consult. Patient recently had an EEG done which was normal. Every 4 neuro checks. We will continue the patient on rest of her home meds including aspirin, statin, her inhalers. TRC abs as needed. Patient does report of urinary hesitancy, however recently completed her antibacterial course for UTI and had her fifth dose on 05/25/2018. We will start the patient on NovoLog sliding scale and fingersticks 3 times daily at bedtime. DVT prophylaxis subcutaneous heparin Patient is full code. [facility]653: General Information and [facility] MD Statement: I have seen and personally examined DAY LOMAS and documented this H&P. The patient is a 78 year old F who presented with a patient stated chief complaint of [seizure]. Source of Information: patient, family Allergies/Medications Allergies: Coded Allergies: cyclobenzaprine (From FLEXERIL) (INCREASED PAIN 02/07/18) Home Med list Acetaminophen 500 MG TABLET 2 TAB PO PRN PAIN (Reported) Albuterol Sulfate 2.5 MG/3 ML (0.083 %) VIAL.NEB 1 Vial INH/YOU PRN SOB ( Reported) Aspirin (Aspirin*) 81 MG TAB.CHEW 1 TAB PO DAILY HEART . Atorvastatin Calcium 40 MG TABLET 1 TAB PO DAILY STROKE PREVENTION . Ergocalciferol (Vitamin D2) (Vitamin D2) 50,000 UNIT CAPSULE 1 CAP PO QW SUPPLEMENT (Reported) Ferrous Sulfate 325 MG (65 MG IRON) TABLET 1 TAB PO DAILY SUPPLEMENT ( Reported) Fluticasone/Salmeterol (Advair 250-50 Diskus) 250 MCG-50 MCG/DOSE BLST.W.DEV 1 PUF INH BID SOB (Reported) Hydrochlorothiazide 12.5 MG CAPSULE 1 CAP PO DAILY DIURETIC (Reported) Losartan (Cozaar) 100 MG TABLET 1 TAB PO DAILY HIGH BLOOD PRESSURE (Reported) Metformin HCl 500 MG TABLET 1 TAB PO TID DM (Reported) Thiamine HCl (B-1) 100 MG TABLET 1 TAB PO DAILY SUPPLEMENT (Reported) Vit C/Curtis AC/Lut/Copper/Znox (Preservision Lutein Softgel) 226-200-5 CAPSULE 2 TAB SUPPLEMENT (Reported) Vitamin E Mixed (Vitamin E) 100 UNIT TABLET 1 TAB PO DAILY SUPPLEMENT ( Reported) Past History Medical History Neurological: seizure Cardiovascular: hypertension Respiratory: COPD Gastrointestinal: diverticulitis, ileostomy reversal status colonic polyp Surgical History Surgical History: breast biopsy, cholecystectomy, hip replacement, 02/08/2018: robotic LAR with DLI for unresectable sigmoid polyp (benign) Past Family/Social History Psychosocial History Smoking Status: Never Smoked ETOH Use: denies use Illicit Drug Use: denies illicit drug use Employment History Employment Retired Review of Systems Review of Systems Constitutional: Reports: see HPI. Exam & Diagnostic Data Last 24 Hrs of Vital Signs/I&O Vital Signs Date Time Temp Pulse Resp B/P B/P Pulse O2 O2 Flow FiO2 Mean Ox Delivery Rate 05/26 0634 98.2 92 18 128/62 97 Room Air 05/25 1929 98.0 83 18 151/67 99 Room Air 05/25 1810 97.9 82 16 146/68 98 Room Air 05/25 1617 967.3 86 16 144/72 97 Room Air 05/25 1450 93 Room Air 05/25 1443 97.8 91 17 142/60 Intake & Output 05/26 0800 08/05 0000 04 1600 Intake Total 120 Output Total Balance 120 Intake, Oral 120 Patient 161 lb Weight Weight Reported by Patient Measurement Method Physical Exam General Appearance Alert, Oriented X3, Cooperative Skin No Rashes, No Breakdown, No Significant Lesion Skin Temp/Moisture Exam: Warm/Dry Sepsis Skin Exam (color): Normal for Ethnicity HEENT Atraumatic, PERRLA, EOMI Neck Supple, No JVD, No thryomegaly Lymphatic Axillary nl, Cervical nl Cardiovascular Regular Rate, Normal S1, Normal S2 Lungs Clear to Auscultation, Normal Air Movement Abdomen Normal Bowel Sounds, Soft, No Tenderness Neurological Normal Gait, Normal Speech Last 24 Hrs of Labs/Cullen: Laboratory Tests 05/26/18 0624: Sodium Pending, Potassium Pending, Chloride Pending, Carbon Dioxide Pending, Anion Gap Pending, BUN Pending, Creatinine Pending, BUN/Creatinine Ratio Pending , CBC w Diff Pending, WBC Pending, RBC Pending, Hgb Pending, Hct Pending, MCV Pending, MCH Pending, MCHC Pending, RDW Pending, Plt Count Pending, MPV Pending 05/25/18 1813: Urinalysis LIGHT H, Urine Color YEL, Urine Clarity CLEAR, Urine pH 6.0, Ur Specific Sat[place] 1.020, Urine Protein NEG, Urine Ketones NEG, Urine Nitrite NEG, Urine Bilirubin NEG, Urine Urobilinogen 0.2, Ur Leukocyte Esterase SMALL H, Ur Microscopic SEDIMENT EXAMINED, Urine WBC 15-25 H, Ur Epithelial Cells MOD H, Urine Bacteria FEW H, Hyaline Casts RARE H, Urine Mucus RARE, Urine Hemoglobin NEG, Urine Glucose NEG 05/25/18 1451: Anion Gap 8, Estimated GFR 48 L, BUN/Creatinine Ratio 11.8, Glucose 145 H, Calcium 8.5, Total Bilirubin 0.2, AST 22, ALT 26, Alkaline Phosphatase 92, Total Protein 5.4 L, Albumin 3.1 L, Globulin 2.3, Albumin/Globulin Ratio 1.3, Prolactin 14.3, CBC w Diff NO MAN DIFF REQ, RBC 3.19 L, MCV 90.6, MCH 29.3, MCHC 32.4 L, RDW 18.3 H, MPV 7.6, Gran % 73.1, Lymphocytes % 14.4 L, Monocytes % 6.2, Eosinophils % 5.1 H, Basophils % 1.2, Absolute Granulocytes 3.8, Absolute Lymphocytes 0.7 L, Absolute Monocytes 0.3, Absolute Eosinophils 0.3, Absolute Basophils 0.1 Core Measures/Misc (07/08) Sepsis (View protocol) If YES complete Sepsis Event Note If YES complete Sepsis Event Note Attending MD Review Statement Attending Statement Attending MD Statement: examined this patient, discuss w/resident/PA/WELL POINT PUMPING SUPERVISOR, agreed w/resident/PA/WELL POINT PUMPING SUPERVISOR, reviewed EMR data (avail), amended to note Attending Assessment/Plan: This patient is an 78 year old female with a significant past medical history for hypertension, TIA/seizure (March 2018), COPD, diabetes, status post reversal of ileostomy with partial small bowel removal, chronic anemia, she was brought in by family after having seizures at home. The patient had a seizure at 2 AM 2 days prior to admission, she woke up, felt twisted and was nonverbal and incontinent of urine. The episode lasted around 510 minutes. She was recently discharged 04/16/18 for a seizure like episode that was ruled out for stroke. CT scan without IV contrast was negative, MRI positive for mild chronic white matter microangiopathy. Echocardiogram was positive for mild aortic sclerosis, mild minimal mitral insufficiency, mild to moderate tricuspid insufficiency without any evidence of pulmonary hypertension with ejection fraction of 60-65%. Carotid Doppler showed small right-sided plaque with no stenosis by left side was within normal limits. She also underwent EEG which was negative without any focal or epileptic activity. Patient was discharged on aspirin and statin but no anti-epileptic medication and advised to follow up with neurology. In the ED she was found to have nl VS, mild anemia (hb 9.4), positive UA, prolactin 14.3, and CT head - No acute intracranial process. Admit to telemetry, start the patient on antiseizure medication (2 unprovoked seizures while asleep), will start with 500 mg Keppra loading dose today, and 500 twice daily, Neurology consult ( contacted in while patient in ED per ED physician) and repeat UA w/ culture once hydrated (recently completed abx course and asymptomatic).
[2018-05-26 06:34] VITALS: BP 128/62
--- NOTE | 2018-05-26 06:41 | PN- Housestaff ---
Kalyan Scruggs 05/26/18 0640: Subjective Follow-up For: New onset seizure Complaints: no complaints Tele-Events Since Last Visit: None Subjective: Patient is doing well. s He was oriented. But said she had does not have any complaints Review of Systems Constitutional: Reports: see HPI. Objective Last 24 Hrs of Vital Signs/I&O Vital Signs Date Time Temp Pulse Resp B/P B/P Pulse O2 O2 Flow FiO2 Mean Ox Delivery Rate 05/26 1509 98.1 86 20 110/60 95 05/26 0634 98.2 92 18 128/62 97 Room Air 05/25 1929 98.0 83 18 151/67 99 Room Air Intake & Output 05/26 1600 05/26 0800 05/26 0000 Intake Total 700 120 Output Total 400 Balance 700 -400 120 Intake, IV 100 Intake, Oral 600 120 Number 3 Bowel Movements Output, Urine 400 Patient 161 lb Weight Weight Reported by Patient Measurement Method Physical Exam General Appearance: Alert, Oriented X3, Cooperative, No Acute Distress Cardiovascular: Regular Rate, No Murmurs Lungs: Clear to Auscultation, Normal Air Movement Abdomen: Normal Bowel Sounds, Soft, No Tenderness, No Hepatospenomegaly, No Masses Neurological: Normal Speech, Strength at 5/5 X4 Ext, Normal Tone, Sensation Intact Extremities: No Clubbing, No Cyanosis, No Edema, Normal Pulses, No Tenderness/ Swelling Assessment/Plan Assessment: Patient is a 78 year old female with pmh of DM, HTN, Diverticulitis s/p colostomy reversal (05/08) who presented to ED with complaint of probable seizure 2 days ago. Patient recently discharged 04/16/18 for a syncopal episode. At that time, CT scan without IV contrast was negative. MRI was only positive for mild chronic white matter microangiopathy. Echocardiogram was positive for mild aortic sclerosis, mild minimal mitral insufficiency, mild to moderate tricuspid insufficiency without any evidence of pulmonary hypertension with ejection fraction of 60-65%. Carotid Doppler showed small right-sided plaque with no stenosis by left side was within normal limits. She also underwent EEG which was negative without any focal or epileptic activity. Patient was discharged on aspirin and statin but no anti-epileptic medication and advised to follow up with neurolgoy. Head CTno acute intracranial process seen. -hb 7.8, monitor cbc at 18.00, follow-up CBCs at 6 PM Follow-up CBCs, BEP, occult blood in stools and iron studies -neurology consulted, f/u EEG, continue Keppra -continue Lipitor, aspirin, insulin NovoLog -TRC nebs as needed Problem List: 1. Seizure Pain Ratin Pain Location: None Pain Goal: Remain pain free Pain Plan: None Tomorrow's Labs & Rationales: CBCT, BEP, stool occult, iron studies Cecilia Lara 05/26/18 1110: Attending MD Review Statement Attending Statement Attending MD Statement: examined this patient, discuss w/resident/PA/CORE DRILLER, agreed w/resident/PA/CORE DRILLER, discussed with family, reviewed EMR data (avail), discussed with nursing, discussed with case mgmt, reviewed images, amended to note Attending Assessment/Plan: 78 year old female with a significant past medical history for hypertension, TIA /seizure (March 2018), COPD, diabetes, status post reversal of ileostomy with partial small bowel removal, chronic anemia, she was brought in by family after having seizures at home. Continue telemetry, start the patient on antiseizure medication (2 unprovoked seizures while asleep), continue keppra 500 twice daily, Neurology consult ( contacted in while patient in ED per ED physician). Frequent neurochecks. Anemia with drop in h/h. Monitor cbc, hemodynamically stable. GI/dvt prophylaxis Reassess if tele can be discontinued.
[2018-05-26 07:54] LABS: ABSOLUTE BASOPHIL COUNT 0.1 /CUMM (0.0-0.2); ABSOLUTE EOSINOPHIL COUNT 0.3 /CUMM (0.0-0.7); ABSOLUTE GRANULOCYTE CT 2.1 /CUMM (1.4-6.5); ABSOLUTE MONOCYTE COUNT 0.3 /CUMM (0.10-0.60); BASOPHIL % 1.5 % (0.0-2.0); EOSINOPHIL % 8.3 % (0-5); GRANULOCYTE % 56.3 % (42.2-75.2); MEAN CORPUSCULAR HGB 29.6 PG (27.0-31.0); MEAN CORPUSCULAR HGB CONC 32.8 G/DL (33.0-37.0); MEAN CORPUSCULAR VOLUME 90.3 FL (81.0-99.0); MEAN PLATELET VOLUME 7.9 FL (7.4-10.4); PLATELET COUNT 168 /CUMM (130-400); RED BLOOD CELL CT 2.66 /CUMM (4.20-5.40); WHITE BLOOD CELL COUNT 3.8 /CUMM (4.8-10.8)
[2018-05-26 15:09] VITALS: BP 110/60
[2018-05-26 18:50] LABS: ABSOLUTE BASOPHIL COUNT 0 /CUMM (0.0-0.2); ABSOLUTE EOSINOPHIL COUNT 0.3 /CUMM (0.0-0.7); ABSOLUTE GRANULOCYTE CT 2.4 /CUMM (1.4-6.5); ABSOLUTE MONOCYTE COUNT 0.3 /CUMM (0.10-0.60); EOSINOPHIL % 7.5 % (0-5); HEMATOCRIT 23.8 % (37-47); MEAN CORPUSCULAR HGB 29.3 PG (27.0-31.0); MEAN CORPUSCULAR HGB CONC 32.8 G/DL (33.0-37.0); MEAN CORPUSCULAR VOLUME 89.4 FL (81.0-99.0); MEAN PLATELET VOLUME 8.2 FL (7.4-10.4); PLATELET COUNT 186 /CUMM (130-400); RBC DISTRIBUTION WIDTH 18.1 % (11.5-14.5); RED BLOOD CELL CT 2.66 /CUMM (4.20-5.40); WHITE BLOOD CELL COUNT 3.9 /CUMM (4.8-10.8)
[2018-05-26 22:23] VITALS: BP 118/60
--- NOTE | 2018-05-26 23:01 | Cons- Neurology ---
General Information and HPI Consulting Request Date of Consult: 05/26/18 Requested By: Phillip Bajwa MD Reason for Consult: ?seizure Source of Information: patient, EMR History of Present Illness: 78-year-old woman states that while she was in bed in home alone her limbs were "twisted like a pretzel "and she was unable to move. Her face also felt tight, and when she went to speak, she was unable to articulate properly.During the time in which she was unable to move she lost control of her bladder, stating that she needed to go to bathroom but was unable to get there. Eventually, within an unclear time frame, the patient was able to gradually crawl around and then get up and call for help. She reports a similar episode which occurred in "January" (EMR-> late March 2018) in which she had apparently fallen on the bed and found herself lying on the floor, again "to sit up like a pretzel". With that episode she states it took many hours before she was able to get herself to the phone and call for help. She does not have a health watch button. She is extremely fearful of ever having such an episode again. She feels as if the next times she would have an episode it would be a fatal one. There was no associated chest pain or palpitations, headache, visual changes. She reports a history of epilepsy in her mother and her grandmother. Here in the hospital she has been up and ambulating without difficulty. Allergies/Medications Allergies: Coded Allergies: cyclobenzaprine (From FLEXERIL) (INCREASED PAIN 02/07/18) Home Med List: Acetaminophen 500 MG TABLET 2 TAB PO PRN PAIN (Reported) Albuterol Sulfate 2.5 MG/3 ML (0.083 %) VIAL.NEB 1 Vial INH/YOU PRN SOB ( Reported) Aspirin (Aspirin*) 81 MG TAB.CHEW 1 TAB PO DAILY HEART . Atorvastatin Calcium 40 MG TABLET 1 TAB PO DAILY STROKE PREVENTION . Ergocalciferol (Vitamin D2) (Vitamin D2) 50,000 UNIT CAPSULE 1 CAP PO QW SUPPLEMENT (Reported) Ferrous Sulfate 325 MG (65 MG IRON) TABLET 1 TAB PO DAILY SUPPLEMENT ( Reported) Fluticasone/Salmeterol (Advair 250-50 Diskus) 250 MCG-50 MCG/DOSE BLST.W.DEV 1 PUF INH BID SOB (Reported) Hydrochlorothiazide 12.5 MG CAPSULE 1 CAP PO DAILY DIURETIC (Reported) Losartan (Cozaar) 100 MG TABLET 1 TAB PO DAILY HIGH BLOOD PRESSURE (Reported) Metformin HCl 500 MG TABLET 1 TAB PO TID DM (Reported) Thiamine HCl (B-1) 100 MG TABLET 1 TAB PO DAILY SUPPLEMENT (Reported) Vit C/Curtis AC/Lut/Copper/Znox (Preservision Lutein Softgel) 226-200-5 CAPSULE 2 TAB SUPPLEMENT (Reported) Vitamin E Mixed (Vitamin E) 100 UNIT TABLET 1 TAB PO DAILY SUPPLEMENT ( Reported) Current Medications: Current Medications Sig/Cirilo Start time Last Medication Dose Route Stop Time Status Admin Acetaminophen 650 MG Q8P PRN 05/25 2300 AC PO Albuterol Sulfate 3 ML Q4P PRN 05/25 2300 AC INH Aspirin 81 MG DAILY 05/26 0900 AC 05/26 PO 0918 Atorvastatin Calcium 40 MG 1700 05/26 1700 AC 05/26 PO 1649 Heparin Sodium 5,000 UNIT Q8 05/26 0600 AC 05/26 (Porcine) SC 2104 Insulin Aspart 0 TIDAC 05/26 08 AC SC Levetiracetam 500 MG BID 05/26 2100 AC 05/26 PO 2104 Levetiracetam 750 MG Q12 05/26 0900 CAN Sodium Chloride 100 ML IV Levetiracetam 500 MG Q12 05/26 0900 DC 05/26 N/A 1 UNIT IV 0919 Levetiracetam 1,500 MG ONCE ONE 05/25 2300 DC 05/26 N/A 1 UNIT IV 05/25 2314 0009 Review of Systems Review of Systems: REVIEW OF SYSTEMS: (-) = negative / normal blank = not discussed Neurologic: see HPI Eyes: Wears eyeglasses ENT: (-) Constitutional: (-) CV: (-) Respiratory: (-) /Renal: (-) Musculoskeletal: (-) Skin: (-) Psychiatric: (-) Heme: (-) GI: multiple colonic polyps status post colectomy with ileostomy in January 2018 with reversal in April 2018 Allergy/Immune: (-) Endocrine: (-) Other: (-) Past History Travel History Traveled to [place] past 21 day No Medical History Neurological: seizure EENT: NONE Cardiovascular: hypertension Respiratory: COPD Gastrointestinal: diverticulitis, ileostomy reversal status colonic polyp Hepatic: NONE Renal: NONE Musculoskeletal: NONE Psychiatric: NONE Endocrine: diabetes Blood Disorders: anemia Cancer(s): NONE PHYSICAL THERAPY PROFESSOR/Reproductive: NONE Surgical History Surgical History: breast biopsy, cholecystectomy, hip replacement, 02/08/2018: robotic LAR with DLI for unresectable sigmoid polyp (benign) Family History Relations & Conditions If Any: Relation not specified for: Epilepsy in mother Psychosocial History Where Do You Live? Home Who Do You Live With? self Services at Home: None Primary Language: Czech Smoking Status: Never Smoked ETOH Use: denies use Illicit Drug Use: denies illicit drug use Functional Ability ADLs Independent: dressing, eating, toileting, bathing. Ambulation: independent Employment History Employment: Retired Exam & Diagnostic Data Vital Signs and I&O Vital Signs Date Time Temp Pulse Resp B/P B/P Pulse O2 O2 Flow FiO2 Mean Ox Delivery Rate 05/26 2223 97.9 83 18 118/60 97 05/26 1509 98.1 86 20 110/60 95 /05 0634 98.2 92 18 128/62 97 Room Air Intake & Output 05/26 1600 05/26 0800 05/26 0000 Intake Total 700 120 Output Total 400 Balance 700 -400 120 Intake, IV 100 Intake, Oral 600 120 Number 3 Bowel Movements Output, Urine 400 Patient 161 lb Weight Weight Reported by Patient Measurement Method Physical Exam: PHYSICAL EXAMINATION: nl = normal NT or blank = not tested GENERAL Appearance: nl Head: nl Eyes: nl ENT: nl Neck: nl Carotids: nl Lungs: nl Heart: nl Extremities: 1+ pedal edema bilat NEUROLOGIC MENTAL STATUS Level of consciousness: nl Orientation: nl Attention / Concentration: nl Memory: nt Fund of Knowledge: nl Speech / Language: nl NEUROLOGIC CRANIAL NERVES I: Olfaction: NT II: Optic nerves: nl Visual sullivan: nl III: Pupils: nl Levator palpebrae: nl III, IV, : Ocular alignment: nl Extraocular motility: nl Pursuits/ saccades: nl V: Facial sensation: nl Masseter/Pterygoids: nl VII: Facial Motor: nl VIII: Hearing (finger rub): nl IX, X: Uvula and palate: nl XI: SCM, Upper trap.: nl XII: Tongue: nl MOTOR / NEUROMUSCULAR Bulk: nl Tone: nl Strength: nl Rapid alternating movements: nl Fine motor movements: nl Abnormal / involuntary movements: none CEREBELLAR / COORDINATION: intact SENSATION: intact DTR's Symmetrically trace to absent PLANTARS: flexor GAIT: nt Last 48 Hours of Lab Results: Laboratory Tests 05/26 05/26 1750 1705 Hematology CBC w Diff NO MAN DIFF REQ WBC (4.8 - 10.8 /CUMM) 3.9 L RBC (4.20 - 5.40 /CUMM) 2.66 L Hgb (12.0 - 16.0 G/DL) 7.8 L Hct (37 - 47 %) 23.8 L MCV (81.0 - 99.0 FL) 89.4 MCH (27.0 - 31.0 PG) 29.3 MCHC (33.0 - 37.0 G/DL) 32.8 L RDW (11.5 - 14.5 %) 18.1 H Plt Count (130 - 400 /CUMM) 186 MPV (7.4 - 10.4 FL) 8.2 Gran % (42.2 - 75.2 %) 60.0 Lymphocytes % (20.5 - 51.1 %) 24.3 Monocytes % (1.7 - 9.3 %) 7.2 Eosinophils % (0 - 5 %) 7.5 H Basophils % (0.0 - 2.0 %) 1.0 Absolute Granulocytes (1.4 - 6.5 /CUMM) 2.4 Absolute Lymphocytes (1.2 - 3.4 /CUMM) 1.0 L Absolute Monocytes (0.10 - 0.60 /CUMM) 0.3 Absolute Eosinophils (0.0 - 0.7 /CUMM) 0.3 Absolute Basophils (0.0 - 0.2 /CUMM) 0 Other Body Source Stool Occult Blood Pending 05/26 05/25 0624 1813 Chemistry Sodium (137 - 145 mmol/L) 139 Potassium (3.5 - 5.1 mmol/L) 3.8 Chloride (98 - 107 mmol/L) 108 H Carbon Dioxide (22 - 30 mmol/L) 26 Anion Gap (5 - 16) 5 BUN (7 - 17 mg/dL) 12 Creatinine (0.5 - 1.0 mg/dL) 1.1 H Estimated GFR (>60 ml/min) 48 L BUN/Creatinine Ratio (7 - 25 %) 10.9 Vitamin B12 (239 - 931 pg/mL) 984 H Folate (2.76 - 20.0 ng/mL) 5.1 Hematology CBC w Diff NO MAN DIFF REQ WBC (4.8 - 10.8 /CUMM) 3.8 L RBC (4.20 - 5.40 /CUMM) 2.66 L Hgb (12.0 - 16.0 G/DL) 7.9 L Hct (37 - 47 %) 24.0 L MCV (81.0 - 99.0 FL) 90.3 MCH (27.0 - 31.0 PG) 29.6 MCHC (33.0 - 37.0 G/DL) 32.8 L RDW (11.5 - 14.5 %) 18.0 H Plt Count (130 - 400 /CUMM) 168 MPV (7.4 - 10.4 FL) 7.9 Gran % (42.2 - 75.2 %) 56.3 Lymphocytes % (20.5 - 51.1 %) 26.4 Monocytes % (1.7 - 9.3 %) 7.5 Eosinophils % (0 - 5 %) 8.3 H Basophils % (0.0 - 2.0 %) 1.5 Absolute Granulocytes (1.4 - 6.5 /CUMM) 2.1 Absolute Lymphocytes (1.2 - 3.4 /CUMM) 1.0 L Absolute Monocytes (0.10 - 0.60 /CUMM) 0.3 Absolute Eosinophils (0.0 - 0.7 /CUMM) 0.3 Absolute Basophils (0.0 - 0.2 /CUMM) 0.1 Urines Urinalysis LIGHT H Urine Color (YEL,AMB,STR) YEL Urine Clarity (CLEAR) CLEAR Urine pH (5.0 - 8.0) 6.0 Ur Specific [place] (1.001 - 1.035) 1.020 Urine Protein (NEG,<30 MG/DL) NEG Urine Ketones (NEG) NEG Urine Nitrite (NEG) NEG Urine Bilirubin (NEG) NEG Urine Urobilinogen (0.1 - 1.0 EU/dl) 0.2 Ur Leukocyte Esterase (NEG) SMALL H Ur Microscopic SEDIMENT EXAMINED Urine WBC (0 - 2 /HPF) 15-25 H Ur Epithelial Cells (NONE,FEW) MOD H Urine Bacteria (NEG/NONE) FEW H Hyaline Casts (0/LPF) RARE H Urine Mucus (FEW,NONE) RARE Urine Hemoglobin (NEG) NEG Urine Glucose (N MG/DL) NEG 05/25 1451 Chemistry Sodium (137 - 145 mmol/L) 137 Potassium (3.5 - 5.1 mmol/L) 3.8 Chloride (98 - 107 mmol/L) 105 Carbon Dioxide (22 - 30 mmol/L) 25 Anion Gap (5 - 16) 8 BUN (7 - 17 mg/dL) 13 Creatinine (0.5 - 1.0 mg/dL) 1.1 H Estimated GFR (>60 ml/min) 48 L BUN/Creatinine Ratio (7 - 25 %) 11.8 Glucose (65 - 99 mg/dL) 145 H Calcium (8.4 - 10.2 mg/dL) 8.5 Total Bilirubin (0.2 - 1.3 mg/dL) 0.2 AST (14 - 36 U/L) 22 ALT (9 - 52 U/L) 26 Alkaline Phosphatase (<127 U/L) 92 Total Protein (6.3 - 8.2 g/dL) 5.4 L Albumin (3.5 - 5.0 g/dL) 3.1 L Globulin (1.9 - 4.2 gm/dL) 2.3 Albumin/Globulin Ratio (1.1 - 2.2 %) 1.3 Prolactin (3.0 - 18.6 ng/mL) 14.3 Hematology CBC w Diff NO MAN DIFF REQ WBC (4.8 - 10.8 /CUMM) 5.2 RBC (4.20 - 5.40 /CUMM) 3.19 L Hgb (12.0 - 16.0 G/DL) 9.4 L Hct (37 - 47 %) 29.0 L MCV (81.0 - 99.0 FL) 90.6 MCH (27.0 - 31.0 PG) 29.3 MCHC (33.0 - 37.0 G/DL) 32.4 L RDW (11.5 - 14.5 %) 18.3 H Plt Count (130 - 400 /CUMM) 212 MPV (7.4 - 10.4 FL) 7.6 Gran % (42.2 - 75.2 %) 73.1 Lymphocytes % (20.5 - 51.1 %) 14.4 L Monocytes % (1.7 - 9.3 %) 6.2 Eosinophils % (0 - 5 %) 5.1 H Basophils % (0.0 - 2.0 %) 1.2 Absolute Granulocytes (1.4 - 6.5 /CUMM) 3.8 Absolute Lymphocytes (1.2 - 3.4 /CUMM) 0.7 L Absolute Monocytes (0.10 - 0.60 /CUMM) 0.3 Absolute Eosinophils (0.0 - 0.7 /CUMM) 0.3 Absolute Basophils (0.0 - 0.2 /CUMM) 0.1 Imaging/Other Studies: PATIENT: DAY LOMAS PRESENT AGE: 78 PATIENT ACCOUNT NO: [id number] : 38 LOCATION: [facility] ORDERING PHYSICIAN: Andrew Valentin DO SERVICE DATE: 05/25/18 EXAM TYPE: CAT - CT HEAD WO IV CONTRAST EXAMINATION: CT HEAD WITHOUT CONTRAST CLINICAL INFORMATION: Status post seizure. COMPARISON: None TECHNIQUE: Contiguous axial imaging was performed from the skull base to vertex without intravenous administration of contrast. DLP: 620 mGy-cm FINDINGS: There is no evidence of acute intracranial hemorrhage or territorial infarction. No abnormal mass effect or midline shift is seen. Tucker to white matter differentiation is well preserved. No extra-axial fluid collections are identified. The ventricles are normal in size. There is no abnormal attenuation within the brain parenchyma. The osseous structures and soft tissues are normal. The mastoid air cells and visualized portions of the paranasal sinuses are well aerated. IMPRESSION: No acute intracranial process seen. DICTATED BY: Alison SAINI,Daniel DATE/TIME DICTATED:05/25/181753 EFFICIENCY MANAGER:RONA DATE/TIME TRANSCRIBED:05/25/181753 FINDINGS: 1. On the right: Small amount of plaque is present at the carotid bifurcation but velocity measurements are normal and do not suggest a stenosis of greater than 50% diameter reduction in the right ICA. The vertebral artery is patent demonstrating antegrade flow. The common carotid artery velocity is 108 cm/s. The internal carotid artery velocities are 86 cm/s systolic and 11 cm/s diastolic. The external carotid artery velocity is 127 cm/s. 2. On the left: No plaque is present at the carotid bifurcation and all velocity measurements are normal and do not suggest a stenosis of greater than 50% diameter reduction in the left ICA. The vertebral artery is patent demonstrating antegrade flow. The common carotid artery velocity is 121 cm/s. The internal carotid artery velocities are 105 cm/s systolic and 18 cm/s diastolic. The external carotid artery velocity is 151 cm/s. IMPRESSION: There is small amount of plaque present in the right internal carotid artery with normal velocities consistent with a minimal 0-49% stenosis. The left side is normal with no plaque seen. DICTATED BY: Wisam Arzate DO DATE/TIME DICTATED:04/14/18116 EFFICIENCY MANAGER:RONA DATE/TIME TRANSCRIBED:04/14/18116 COMPARISON: Head CT from 04/13/2018. TECHNIQUE: MRI of the brain without contrast was obtained using routine sequences. Patient unable to complete the examination due to difficulty breathing and claustrophobia. FINDINGS: No diffusion abnormalities are identified to suggest an acute infarct. The ventricles are normal in size. No mass effect or midline shift is seen. Mild small vessel ischemic changes noted in the cerebral white matter. No extra-axial fluid collections are seen. The brainstem and cerebellum are normal. The craniovertebral junction, marrow signal, and midline structures are normal. The mastoid air cells are well aerated. There is mild mucosal thickening in the ethmoid sinuses. IMPRESSION: No acute intracranial process. Mild chronic white matter microangiopathy. DICTATED BY: Jaun Amos MD DATE/TIME DICTATED:04/15/181117 EFFICIENCY MANAGER:RONA DATE/TIME TRANSCRIBED:04/15/181117 CONFIDENTIAL, DO NOT COPY WITHOUT APPROPRIATE AUTHORIZATION. EEG March 2018 Interpretation: EEG in wake state Background is 10 cps activity low voltahe 22-24 cps activity frontally Phitic stim: no abnormalities No focal or epileptiform activity Impression: Normal EEG in wake state DICTATED BY: Max Aponte MD Assessment/Plan Assessment: ? dystonic reaction (However does not appear to be on any medications which could cause this) ?Seizure (Uncertain; spell was unwitnessed) ?TIA (Uncertain; spell was unwitnessed. Unremarkable TIA workup March. Maintained on aspirin and statin) ?Sleep paralysis->Denies any history of sleep disorder Home safety issues Anxiety related to "spells " Recommendations: Repeat EEG Consider an empiric trial of an anticonvulsant medication Needs increased supervision at home for safety and to health watch button Consult Acknowledgment - Thank you for your consult request.
[2018-05-27 06:42] VITALS: BP 120/60
[2018-05-27 08:10] LABS: ABSOLUTE BASOPHIL COUNT 0 /CUMM (0.0-0.2); ABSOLUTE EOSINOPHIL COUNT 0.2 /CUMM (0.0-0.7); ABSOLUTE GRANULOCYTE CT 1.6 /CUMM (1.4-6.5); ABSOLUTE LYMPH COUNT 0.9 /CUMM (1.2-3.4); ABSOLUTE MONOCYTE COUNT 0.2 /CUMM (0.10-0.60); BASOPHIL % 1.4 % (0.0-2.0); GRANULOCYTE % 54.6 % (42.2-75.2); HEMATOCRIT 25.1 % (37-47); MEAN CORPUSCULAR HGB 29.1 PG (27.0-31.0); MEAN CORPUSCULAR HGB CONC 32.4 G/DL (33.0-37.0); MEAN CORPUSCULAR VOLUME 89.7 FL (81.0-99.0); MEAN PLATELET VOLUME 7.7 FL (7.4-10.4); PLATELET COUNT 168 /CUMM (130-400); RBC DISTRIBUTION WIDTH 17.5 % (11.5-14.5)
--- NOTE | 2018-05-27 09:59 | PN- Housestaff ---
Justin Win 05/27/18 0958: Subjective Follow-up For: Seizures Tele-Events Since Last Visit: NSR overnight Subjective: Pt seen and examined sitting in bed. No events overnight. Patient has no complaints. Patient is frustrated that this has occured at home where she is alone and no one was able to help her. Review of Systems Constitutional: Reports: see HPI. Objective Last 24 Hrs of Vital Signs/I&O Vital Signs Date Time Temp Pulse Resp B/P B/P Pulse O2 O2 Flow FiO2 Mean Ox Delivery Rate 05/27 1538 98.3 88 18 112/68 996 Room Air 05/27 0642 98.4 82 18 120/60 97 Room Air 05/26 2223 97.9 83 18 118/60 97 Intake & Output 05/27 1600 05/27 0800 05/27 0000 Intake Total 760 200 350 Output Total Balance 760 200 350 Intake, IV 10 Intake, Oral 750 200 350 Number 1 Bowel Movements Patient 160 lb Weight Physical Exam General Appearance: Alert, Oriented X3, Cooperative, No Acute Distress Skin Temp/Moisture Exam: Warm/Dry Sepsis Skin Exam (color): Normal for Ethnicity HEENT: Atraumatic, PERRLA, EOMI Neck: Supple Cardiovascular: Regular Rate, Normal S1, Normal S2 Lungs: Clear to Auscultation, Normal Air Movement Abdomen: Soft, No Tenderness Neurological: Normal Gait, Normal Speech, Strength at 5/5 X4 Ext, Cranial Nerves 3-12 NL Current Medications: Current Medications Sig/Cirilo Start time Last Medication Dose Route Stop Time Status Admin Acetaminophen 650 MG Q8P PRN 05/25 2300 AC PO Albuterol Sulfate 3 ML Q4P PRN 05/25 2300 AC INH Aspirin 81 MG DAILY 05/26 09 AC 05/27 PO 0900 Atorvastatin Calcium 40 MG 1700 05/26 1700 AC 05/27 PO 1648 Bisacodyl 5 MG ONE ONE 05/27 193 DC PO 05/27 193 Heparin Sodium 5,000 UNIT Q8 05/26 600 AC 05/27 (Porcine) SC 2111 Insulin Aspart 0 TIDAC 05/26 800 AC SC Levetiracetam 500 MG BID 05/26 2100 AC 05/27 PO 211 Last 24 Hrs of Lab/Cullen Results Last 24 Hrs of Labs/Mics: Laboratory Tests 05/27/18 0632: Anion Gap 4 L, Estimated GFR 53 L, BUN/Creatinine Ratio 11.0, Magnesium 1.5 L , Iron 28 L, TIBC 242 L, CBC w Diff NO MAN DIFF REQ, RBC 2.80 L, MCV 89.7, MCH 29.1, MCHC 32.4 L, RDW 17.5 H, MPV 7.7, Gran % 54.6, Lymphocytes % 28.6, Monocytes % 7.4, Eosinophils % 8.0 H, Basophils % 1.4, Absolute Granulocytes 1.6, Absolute Lymphocytes 0.9 L, Absolute Monocytes 0.2, Absolute Eosinophils 0.2, Absolute Basophils 0 Assessment/Plan Assessment: Patient is an 78 year old female with pmh of DM, HTN, HLD, Diverticulitis, Benign Adenoma s/p colostomy reversal (April 2018) who presented to ED with complaint of probable seizure 2 days ago. Last admission: - Patient recently discharged (April 16 2018) for what was thought to be a syncopal episode dt TIA. - At that time, CT scan without IV contrast was negative. - MRI was only positive for mild chronic white matter microangiopathy. - Echocardiogram was positive for mild aortic sclerosis, mild minimal mitral insufficiency, mild to moderate tricuspid insufficiency without any evidence of pulmonary hypertension with ejection fraction of 60-65%. - Carotid Doppler showed small right-sided plaque with no stenosis by left side was within normal limits. - EEG which was negative without any focal or epileptic activity. - Patient was discharged on with aspirin and statin but no anti-epileptic medication and advised to follow up with neurology outpatient. This admission: Head CT (May 25, 2018) showed no acute intracranial abnormalities. Problem List: 1. Repeat seizure vs TIA vs Sleep paralysis: last episode with similar features 6 weeks ago, family history of epilepsy but not typical considering pt's age of onset, also very difficult to determine whether there was any loss of conciousness or any other symptoms as there were no witnesses, at this point neurology is still not completely conviced it is epileptic activity, so far no repeat episode during hospital stay. 2. Chronic Conditions: DM, HTN, HLD Plan: 1. Perform EEG, can be discharged pending negative read as per neurology 2. Start empiric tiral of Keppra 500mg BID as per neurology 3. Will need increased supervision at home for safety 4. Continue home medications DVT ppx Diet Heart Healthy Full Code Problem List: 1. Seizure Pain Ratin Pain Location: NA Pain Goal: Remain pain free Pain Plan: Pain Pathway Tomorrow's Labs & Rationales: JUAN Pepe MD,Claudine 05/27/18 1149: Attending MD Review Statement Attending Statement Attending MD Statement: examined this patient, discuss w/resident/PA/CITY DISPATCHER, agreed w/resident/PA/CITY DISPATCHER, reviewed EMR data (avail), discussed with nursing, discussed with case mgmt, amended to note Attending Assessment/Plan: Patient seen and examined. Resting comfortably not in acute distress. No issues overnight. No new complaints this morning. She is concerned about having another repeat episode at home. It is not entirely clear whether the episode she had at home with seizure episodes. She has had similar episodes in the past that led to workup for TIA. Neurology service is recommending EEG. Unclear how helpful this will be currently given her stable clinical status at present. She was started on Keppra yesterday based on recommendations from the neurology service. Patient will certainly benefit from closer monitoring at home. Will discuss further with her [id number]. Awaiting recommendations from the neurology service regarding antiepileptic therapy and outpatient follow-up.
--- NOTE | 2018-05-27 11:36 | Patient Discharge Instructions ---
Discharge Instructions General Discharge Information You were seen/treated for: Acute onset seizures You had these procedures: Head CT Watch for these problems: Please return to the ER in case of any lightheadedness/ dizziness, loss of consciousness or seizure like activiy. Special Instructions: Please follow up with your PCP and Neurologist within a week after discharge. Diet Continue normal diet: Yes Activity Full Activity/No Limits: Yes Activity Self Limited: Yes Acute Coronary Syndrome Inclusion Criteria At DC or during hospital stay patient has or had the following: ACS DIAGNOSIS No Discharge Core Measures Meds if any: Prescribed or Continued at Discharge Meds if any: NOT Prescribed or Continued at Discharge Congestive Heart Failure Inclusion Criteria At DC or during hospital stay patient has or had the following: CHF DIAGNOSIS No Discharge Core Measures Meds if any: Prescribed or Continued at Discharge Meds if any: NOT Prescribed or Continued at Discharge Cerebrovascular accident Inclusion Criteria At DC or during hospital stay patient has or had the following: CVA/TIA Diagnosis No Discharge Core Measures Meds if any: Prescribed or Continued at Discharge Meds if any: NOT Prescribed or Continued at Discharge Venous thromboembolism Inclusion Criteria VTE Diagnosis No VTE Type NONE VTE Confirmed by (Test) NONE Discharge Core Measures - Per Current guidelines, there needs to be overlap - treatment for the first 5 days of Warfarin therapy. - If discharged on Warfarin prior to 5 days of - overlap therapy, the patient will need to be - assessed for post discharge needs including - *Post discharge parental anticoagulation - *Warfarin and/or parental anticoagulation education - *Follow up date to check INR post discharge At least 5 days overlap therapy as Inpatient No Meds if any: Prescribed or Continued at Discharge Note: Overlap Therapy is Warfarin and Anticoagulant Meds if any: NOT Prescribed or Continued at Discharge
[2018-05-27] MEDS ORDERED: KEPPRA500 M1 PO (11:39)
[2018-05-27 15:38] VITALS: BP 112/68
[2018-05-27 22:22] VITALS: BP 118/62
--- NOTE | 2018-05-27 22:34 | ELECTROENCEPHALOGRAM REPORT ---
Electroencephalogram Report Electroencephalogram Results Date of service: 05/27/18 Attending MD: Claudine Pepe MD Investment Underwriter: Maris Pinto EEG Number: [id number] Test Utilizes: 10-20 system, 21 lead 18 channel digital recording Pertinent Hx/Physical/Neuro Findings/Clin Diagnosis: Seizure Inpatient Medications: Current Medications Sig/Cirilo Start time Last Medication Dose Route Stop Time Status Admin Acetaminophen 650 MG Q8P PRN 05/25 2300 AC PO Albuterol Sulfate 3 ML Q4P PRN 05/25 2300 AC INH Aspirin 81 MG DAILY 05/26 0900 AC 05/27 PO 0900 Atorvastatin Calcium 40 MG 1700 / 1700 AC 05/27 PO 1648 Bisacodyl 5 MG ONE ONE 05/27 1930 DC PO 05/27 1931 Heparin Sodium 5,000 UNIT Q8 05/26 0600 AC 05/27 (Porcine) SC 2112 Insulin Aspart 0 TIDAC 05/26 0800 AC SC Levetiracetam 500 MG BID 05/26 2100 AC 05/27 PO 211 Interpretation: The background is composed mainly of generalized low amplitude beta frequency rhythms with occasional posterior low amplitude alpha seen. No focal or epileptiform abnormalities are found. Hyperventilation was deferred, photic stimulation causes no abnormalities. Impression: Normal EEG
[2018-05-28 06:53] VITALS: BP 134/64
--- NOTE | 2018-05-28 07:28 | PN- Housestaff ---
Justin Win 05/28/18 0728: Subjective Follow-up For: Seizures Subjective: Pt seen and examined sitting in bed. No events overnight. Patient has no new complaints other than some constipation, which was relieved with medication. Review of Systems Constitutional: Reports: see HPI. Objective Last 24 Hrs of Vital Signs/I&O Vital Signs Date Time Temp Pulse Resp B/P B/P Pulse O2 O2 Flow FiO2 Mean Ox Delivery Rate 05/28 0653 97.7 82 12 134/64 97 Room Air Physical Exam General Appearance: Alert, Oriented X3, Cooperative Skin Temp/Moisture Exam: Warm/Dry Sepsis Skin Exam (color): Normal for Ethnicity HEENT: Atraumatic, PERRLA, EOMI Neck: Supple Cardiovascular: Regular Rate, Normal S1, Normal S2 Lungs: Clear to Auscultation, Normal Air Movement Abdomen: Soft, No Tenderness Neurological: Normal Gait, Normal Speech, Cranial Nerves 3-12 NL Current Medications: Current Medications Sig/Cirilo Start time Last Medication Dose Route Stop Time Status Admin Acetaminophen 650 MG Q8P PRN 05/25 2300 DCD PO Albuterol Sulfate 3 ML Q4P PRN / 2300 DCD INH Aspirin 81 MG DAILY 05/26 0900 DCD 08/ PO 0900 Atorvastatin Calcium 40 MG 1700 08/ 1700 DCD 08/06 PO 1648 Heparin Sodium 5,000 UNIT Q8 / 0600 DCD 08/ (Porcine) SC 0709 Insulin Aspart 0 TIDAC 05/26 0800 DCD SC Levetiracetam 500 MG BID / 2100 DCD / PO 0900 Assessment/Plan Assessment: Problem List: 1. Repeat seizure vs TIA vs Sleep paralysis: last episode with similar features 6 weeks ago, family history of epilepsy but not typical considering pt's age of onset, also very difficult to determine whether there was any loss of conciousness or any other symptoms as there were no witnesses, at this point neurology is still not completely conviced it is epileptic activity, so far no repeat episode during hospital stay. 2. Chronic Conditions: DM, HTN, HLD Plan: 1. EEG was negative can be discharged today 2. Continue Keppra 500mg BID as per neurology 3. Will need increased supervision at home for safety 4. Continue home medications DVT ppx Diet Heart Healthy Full Code Problem List: 1. Seizure Pain Ratin Pain Location: NA Pain Goal: Remain pain free Pain Plan: Per pathway Tomorrow's Labs & Rationales: Claudine Peter MD 05/28/18 1148: Attending MD Review Statement Attending Statement Attending MD Statement: examined this patient, discuss w/resident/PA/[employer] PERFORMANCE ENGINEER, agreed w/resident/PA/WIND [employer]URB[employer] PERFORMANCE ENGINEER, reviewed EMR data (avail), discussed with nursing, discussed with case mgmt, amended to note Attending Assessment/Plan: Patient seen and examined. Resting comfortably and not in any acute distress. No issues overnight. No new complaints this morning. EEG results returned late last night. Showed no evidence of seizure activity. She feels comfortable being discharged today. Recommend follow-up with the neurology service as an outpatient.
[2018-05-28] MEDS ORDERED: KEPPRA500 M1 PO ×2 (08:54→11:35)
== END 2018-05-28 13:19 | DRG 101 ==
LOC: ERH 14:32 → ERHI 19:19 → 1NO 19:19 → ENPENDDIS 05-28 08:50 → ENTRNSPT 05-28 13:18 → 1NO 05-28 13:19 → CMPTRNSPT 05-28 13:20
PROVIDERS: Internal Medicine; Internal Medicine Adolescent Medicine; Physician Assistant Medical; Student in an Organized Health Care Education/Training Program
DX: R56.9 Unspecified convulsions (principal); J44.9 Chronic obstructive pulmonary disease, unspecified; E11.9 Type 2 diabetes mellitus without complications; I10 Essential (primary) hypertension; E78.5 Hyperlipidemia, unspecified; Z86.010 Personal history of colon polyps; Z90.49 Acquired absence of other specified parts of digestive tract; Z87.891 Personal history of nicotine dependence; Z79.84 Long term (current) use of oral hypoglycemic drugs; Z88.8 Allergy status to other drugs, medicaments and biological substances; Z96.649 Presence of unspecified artificial hip joint
CPT/HCPCS: 1NSP; 36592; 81001; 82436; 93005; 93010; 95816; J1644; J1953; J3490